=== PATIENT | female | born 1950 | race Caucasian/White ===

== ENCOUNTER 2017-04-10 16:16 | Emergency (ER) | payer BC, OTHER ==
[~2017-04-10] VITALS: Ht 154.9 cm; Wt 48.0 kg
[2017-04-10 16:18] VITALS: BP 85/48; PULSE 83; RESP 16; TEMP 101.2; O2SAT 95
[2017-04-10 16:42] VITALS: BP 99/49; PULSE 86; RESP 18; O2SAT 96
[2017-04-10] MEDS ORDERED: HUMIBIDDM PO (16:42)
[2017-04-10] MEDS ORDERED: CEPH-460 PO (16:42)
[2017-04-10] MEDS ORDERED: ZOLO50TA PO (16:42)
[2017-04-10] MEDS ORDERED: SYNT88TA PO (16:42)
[2017-04-10] MEDS ORDERED: ROSU20 PO (16:47)
[2017-04-10 17:02] LABS: HEMOGLOBIN 11.2 GM/DL (11.6-15.3); MEAN CELL VOLUME 97.8 FL (80.0-100.0); MEAN CORPUSCULAR HEMOGLOBIN 32.2 PG (27.0-34.0); MEAN CORPUSCULAR HGB CONC 32.9 % (32.0-36.0); MEAN PLATELET VOLUME 8.7 FL (7.0-11.0); PLATELET COUNT 114 TH/MM3 (150-450); RED BLOOD COUNT 3.48 MIL/MM3 (4.00-5.30); RED CELL DISTRIBUTION WIDTH 12.2 % (11.6-17.2); WHITE BLOOD COUNT 3.7 TH/MM3 (4.0-11.0)
[2017-04-10 17:11] LABS: CHLORIDE 89 MEQ/L (98-107); SODIUM (NA) 126 MEQ/L (136-145)
[2017-04-10 17:13] VITALS: O2SAT 97
[2017-04-10 17:14] LABS: CALCIUM 8.4 MG/DL (8.5-10.1)
[2017-04-10 17:15] LABS: ALBUMIN 3.8 GM/DL (3.4-5.0); BICARBONATE 28.2 MEQ/L (21.0-32.0); BLOOD UREA NITROGEN 15 MG/DL (7-18); GLUCOSE,RANDOM 115 MG/DL (74-106)
[2017-04-10] MEDS ORDERED: ACETAMINOPHEN 650 MG/20.3 ML UDC PO ONE (17:15)
[2017-04-10] MEDS ORDERED: ONDANSETRON HCL 4 MG/2 ML VIAL IV PUSH ONE (17:15)
[2017-04-10 17:18] LABS: ALT (GPT) 24 U/L (10-53); AST (GOT) 27 U/L (15-37); CREATININE 0.62 MG/DL (0.50-1.00); GLOMERULAR FILTRATION RATE 97 ML/MIN (>89)
[2017-04-10 17:19] LABS: TOTAL BILIRUBIN ADULT 0.5 MG/DL (0.2-1.0); TOTAL PROTEIN 6.7 GM/DL (6.4-8.2)
[2017-04-10 17:21] LABS: ALKALINE PHOSPHATASE 40 U/L (45-117)
[2017-04-10 17:30] LABS: BANDS 25 % (0-6); LYMPHOCYTES 11 % (9-44); MONOCYTES 19 % (0-8); NEUTROPHIL # MANUAL DIFF 2.6 TH/MM3 (1.8-7.7); POLYS (SEG NEUTROPHILS) 45 % (16-70)
[2017-04-10 17:31] LABS: ROULEAUX PRESENT (NORMAL)
--- NOTE | 2017-04-10 17:48 | PD ---
HPI Chief Complaint: Cold / Flu Symptoms Time Seen by Provider: 17:13 Travel History International Travel<30 days: No Contact w/Intl Traveler<30days: No Traveled to known affect area: No History of Present Illness HPI Patient presents with complaints of mild cough yesterday. Taking a nap today when she awoke she was febrile with general malaise mild nausea no vomiting. No flu shot. Unknown sick contacts. No new rashes. No tobacco exposure. No history of lung disease. PFSH Past Medical History Depression: Yes High Cholesterol: Yes Diminished Hearing: No Immunizations Current: Yes Thyroid Disease: Yes Tetanus Vaccination: > 5 Years Influenza Vaccination: No ?: Not Past Surgical History Hysterectomy: Yes Social History Alcohol Use: Yes (occ) Tobacco Use: No Substance Use: No Allergies-Medications (Allergen,Severity, Reaction): Coded Allergies: amoxicillin (Verified Allergy, Severe, HIVES, THROAT CLOSES, 04/10/17) Penicillins (Verified Allergy, Intermediate, HIVES, THROAT CLOSING, 04/10/17 ) licorice (Verified Allergy, Intermediate, HIVES, 04/10/17) pineapple (Verified Allergy, Intermediate, HIVES, 04/10/17) shellfish derived (Verified Allergy, Intermediate, Anaphylaxis, 04/10/17) strawberry (Verified Allergy, Intermediate, HIVES, 04/10/17) Reported Meds & Prescriptions Reported Meds & Active Scripts Active Reported Crestor (Rosuvastatin Calcium) 20 Mg Tab 20 Mg PO DAILY Synthroid (Levothyroxine Sodium) 88 Mcg Tab 88 Mcg PO DAILY Mucinex DM (Dextromethorphan-Guaifenesin) 30-600 Mg Tab 1 Tab PO BID PRN Zoloft (Sertraline HCl) 50 Mg Tab 50 Mg PO DAILY Keflex (Cephalexin) 500 Mg Cap 500 Mg PO Q8H Review of Systems General / Constitutional: Positive: Fever Eyes: No: Visual changes HENT: No: Headaches Cardiovascular: No: Chest Pain or Discomfort Respiratory: Positive: Cough, No: Shortness of Breath Gastrointestinal: Positive: Nausea, No: Abdominal Pain Genitourinary: No: Dysuria Musculoskeletal: Positive: Myalgias, No: Pain Skin: No Rash Neurologic: No: Weakness Psychiatric: No: Depression Endocrine: No: Polydipsia Hematologic/Lymphatic: No: Easy Bruising Physical Exam Narrative GENERAL: Well-nourished, well-developed patient. SKIN: Focused skin assessment warm/dry. HEAD: Normocephalic. EYES: No scleral icterus. No injection or drainage. NECK: Supple, trachea midline. No JVD or lymphadenopathy. CARDIOVASCULAR: Regular rate and rhythm without murmurs, gallops, or rubs. RESPIRATORY: Breath sounds equal bilaterally. No accessory muscle use. GASTROINTESTINAL: Abdomen soft, non-tender, nondistended. MUSCULOSKELETAL: No cyanosis, or edema. BACK: Nontender without obvious deformity. No CVA tenderness. Data Data Last Documented VS Vital Signs Date Time Temp Pulse Resp B/P (MAP) Pulse Ox O2 Delivery O2 Flow Rate FiO2 04/10/17 17:51 99.5 79 18 91/40 (57) 96 Room Air Orders Orders Sepsis Workup Initiated (04/10/17 ) Complete Blood Count With Diff (04/10/17 16:47) Comprehensive Metabolic Panel (04/10/17 16:47) Lactic Acid Sepsis Protocol (04/10/17 16:47) Chest, Single Ap (04/10/17 16:47) Blood Culture (04/10/17 16:47) Iv Access Insert/Monitor (04/10/17 16:47) Oxygen Administration (04/10/17 16:47) Oximetry (04/10/17 16:47) Blood Glucose (04/10/17 16:47) Influenzae A/B Antigen (04/10/17 16:52) Ondansetron Inj (Zofran Inj) (04/10/17 17:15) Acetaminophen 650 Mg/20 Ml Liq (Tylenol (04/10/17 17:15) Sodium Chlorid 0.9% 500 Ml Inj (Ns 500 M (04/10/17 18:00) Labs Laboratory Tests Test 04/10/17 16:40 04/10/17 16:45 White Blood Count 3.7 TH/MM3 Red Blood Count 3.48 MIL/MM3 Hemoglobin 11.2 GM/DL Hematocrit 34.0 % Mean Corpuscular Volume 97.8 FL Mean Corpuscular Hemoglobin 32.2 PG Mean Corpuscular Hemoglobin Concent 32.9 % Red Cell Distribution Width 12.2 % Platelet Count 114 TH/MM3 Mean Platelet Volume 8.7 FL CBC Comment AUTO DIFF Differential Total Cells Counted 100 Neutrophils % (Manual) 45 % Band Neutrophils % 25 % Lymphocytes % 11 % Monocytes % 19 % Neutrophils # (Manual) 2.6 TH/MM3 Differential Comment FINAL DIFF MANUAL Platelet Estimate LOW Platelet Morphology Comment NORMAL Rouleau PRESENT Red Cell Morphology Comment NORMAL Blood Urea Nitrogen 15 MG/DL Creatinine 0.62 MG/DL Random Glucose 115 MG/DL Total Protein 6.7 GM/DL Albumin 3.8 GM/DL Calcium Level 8.4 MG/DL Alkaline Phosphatase 40 U/L Aspartate Amino Transf (AST/SGOT) 27 U/L Alanine Aminotransferase (ALT/SGPT) 24 U/L Total Bilirubin 0.5 MG/DL Sodium Level 126 MEQ/L Potassium Level 3.8 MEQ/L Chloride Level 89 MEQ/L Carbon Dioxide Level 28.2 MEQ/L Anion Gap 9 MEQ/L Estimat Glomerular Filtration Rate 97 ML/MIN Lactic Acid Level 0.7 mmol/L [facility] Medical Decision Making Medical Screen Exam Complete: Yes Emergency Medical Condition: Yes Differential Diagnosis Influenza, bronchitis, viral upper respiratory infection, pneumonia Narrative Course Assessment and plan discussed with patient and daughter at bedside. BMP reveals mild hyponatremia, patient was given 500 cc normal saline. CBC revealed a pancytopenia which the patient acknowledged was not new. No comparison available. Influenza was negative. Last 72 hours Impressions Chest X-Ray 04/10/17 1647 Signed Impressions: Service Date/Time: Monday, April 10, 2017 17:01 - CONCLUSION: 1. Interstitial disease which may be acute or chronic in nature. Please see above. Joe Luu MD I think with the chest x-ray findings prophylactic antibiotics is warranted. Diagnosis Primary Impression: Cough Additional Impressions: Fever Qualified Codes: R50.9 - Fever, unspecified Mild nausea Pancytopenia Patient Instructions: General Instructions Additional Instructions: Rest fluids and Motrin, encouraged a bland high-fiber brat diet. Encouraged to follow-up with PCP for further workup of pancytopenia. Encourage frequent handwashing. Consider vitamin C and zinc to boost immune system. Med/Other Pt SpecificInfo: Prescription(s) given Scripts Ondansetron (Zofran) 4 Mg Tab 4 MG PO Q6HR Y for NAUSEA OR VOMITING, #15 TAB 0 Refills Prov: Chapincito Hayes MD 04/10/17 Guaifenesin-Codeine Liq (Cheratussin AC Liq) 100-10 Mg/5 Ml Syrp 5-10 ML PO Q4H Y for COUGH AND COLD SYMPTOMS, #120 ML 0 Refills Do not exceed 6 doses/24 hrs. Prov: Chapincito Hayes MD 04/10/17 Azithromycin (Zithromax Z-Cristobal) 250 Mg Dspk 250 MG PO DIRECTED for Infection, #1 DSPK 0 Refills 500 MG (2 tabs) day 1, then 1 tab days 2-5. Prov: Chapincito Hayes MD 04/10/17 Chapincito Hayes MD Apr 10, 2017 17:48
--- NOTE | 2017-04-10 17:49 | RADRPT ---
EXAM DATE/TIME: 04/10/2017 17:01 [facility] COMPARISON: No previous studies available for comparison. INDICATIONS : Fever, cough, chest pain with cough MEDICAL HISTORY : None. SURGICAL HISTORY : None. ENCOUNTER: Initial ACUITY: 4 - 6 days PAIN SCORE: 5/10 LOCATION: Bilateral chest FINDINGS: The cardiac silhouette is normal in transverse diameter. There is interstitial disease bilaterally wh ich may be related to chronic fibrosis or atypical bacterial, viral or fungal pneumonia. There are no prior films for comparison. No pleural effusions are identified. No lobar consolidation is seen. CONCLUSION: 1. Interstitial disease which may be acute or chronic in nature. Please see above. Joe Luu MD on April 10, 2017 at 17:46 Board Certified Radiologist. This report was verified electronically.
[2017-04-10 17:51] VITALS: BP 91/40; PULSE 79; RESP 18; TEMP 99.5; O2SAT 96
[2017-04-10] MEDS ORDERED: SODIUM CHLORID 0.9% 500 ML INJ 500 ML IV ONE (18:00)
[2017-04-10] MEDS ORDERED: ZITHTAB PO (18:06)
[2017-04-10] MEDS ORDERED: CHERSYP2 PO (18:06)
[2017-04-10] MEDS ORDERED: ZOFR4TAB PO (18:06)
== END 2017-04-10 18:00 | disposition home or self-care (01) ==
LOC: PHED 16:16
DX: R05 Cough (principal); R50.9 Fever, unspecified; R11.0 Nausea; D61.818 Other pancytopenia; E87.1 Hypo-osmolality and hyponatremia; F32.9 Major depressive disorder, single episode, unspecified; E07.9 Disorder of thyroid, unspecified
CPT/HCPCS: 71045; 80053; 83605; 85007; 85027; 87040; 87804; 96361; 96374; 99284; J2405; J7040

== ENCOUNTER 2017-04-13 15:58 | Inpatient (IN) | payer MEDICARE, BC ==
[2017-04-13] VITALS (7 sets, daily range): BP systolic 87–124; BP diastolic 47–58; PULSE 88–109; RESP 20–35; TEMP 97.7–100.6; O2SAT 63–100
[~2017-04-13] VITALS: Ht 154.9 cm; Wt 46.5 kg
[~2017-04-13 15:58] MED LIST: CEPH-460 PO; CHERSYP2 PO; HUMIBIDDM PO; ROSU20 PO; SYNT88TA PO; ZITHTAB PO; ZOFR4TAB PO; ZOLO50TA PO
[2017-04-13] MEDS ORDERED: LEVOFLOXACIN 500 MG PREMIX INJ 100 ML IV ONE (16:15)
--- NOTE | 2017-04-13 16:38 | PD ---
HPI Chief Complaint: COUGH/SOB Time Seen by Provider: 16:15 Travel History International Travel<30 days: No Contact w/Intl Traveler<30days: No Traveled to known affect area: No History of Present Illness HPI SEEN AT [facility] ON April, FOR COUGH/FEVER/AND SOB. UNKNOWN WHAT PULSE OX WAS PRESENT ON THAT DAY. PATIENT DX WITH "LUNG INFECTION" AND PLACED ON ZPAK. TODAY PATIENT RETURNS BECAUSE OF PERSISTENT FEVER, COUGH AND GEN WEAKNESS PCP [facility]EN PMHX: DEPRESSION, HYPERCHOL, HYPOTHYROID, HYSTERECTOMY PFSH Past Medical History Depression: Yes High Cholesterol: Yes Diminished Hearing: No Immunizations Current: Yes Thyroid Disease: Yes Past Surgical History Hysterectomy: Yes Social History Alcohol Use: Yes (occ) Tobacco Use: No Substance Use: No Allergies-Medications (Allergen,Severity, Reaction): Coded Allergies: amoxicillin (Verified Allergy, Severe, HIVES, THROAT CLOSES, 04/10/17) Penicillins (Verified Allergy, Intermediate, HIVES, THROAT CLOSING, 04/10/17 ) licorice (Verified Allergy, Intermediate, HIVES, 04/10/17) pineapple (Verified Allergy, Intermediate, HIVES, 04/10/17) shellfish derived (Verified Allergy, Intermediate, Anaphylaxis, 04/10/17) strawberry (Verified Allergy, Intermediate, HIVES, 04/10/17) Reported Meds & Prescriptions Reported Meds & Active Scripts Active Zofran (Ondansetron HCl) 4 Mg Tab 4 Mg PO Q6HR PRN Cheratussin AC Liq (Guaifenesin-Codeine Liq) 100-10 Mg/5 Ml Syrp 5-10 Ml PO Q4H PRN Do not exceed 6 doses/24 hrs. Zithromax Z-Cristobal (Azithromycin) 250 Mg Dspk 250 Mg PO DIRECTED 500 MG (2 tabs) day 1, then 1 tab days 2-5. Reported Crestor (Rosuvastatin Calcium) 20 Mg Tab 20 Mg PO DAILY Synthroid (Levothyroxine Sodium) 88 Mcg Tab 88 Mcg PO DAILY Mucinex DM (Dextromethorphan-Guaifenesin) 30-600 Mg Tab 1 Tab PO BID PRN Zoloft (Sertraline HCl) 50 Mg Tab 50 Mg PO DAILY Keflex (Cephalexin) 500 Mg Cap 500 Mg PO Q8H Review of Systems Except as stated in HPI: all other systems reviewed are Neg General / Constitutional: Positive: Fever, Chills Eyes: No: Visual changes HENT: No: Headaches Cardiovascular: No: Chest Pain or Discomfort Respiratory: Positive: Cough, Shortness of Breath Gastrointestinal: No: Abdominal Pain Genitourinary: No: Dysuria Musculoskeletal: No: Pain Skin: No Rash Neurologic: No: Weakness Psychiatric: No: Depression Endocrine: No: Polydipsia Hematologic/Lymphatic: No: Easy Bruising Physical Exam Narrative GENERAL: SKIN: Warm and dry. HEAD: Atraumatic. Normocephalic. EYES: Pupils equal and round. No scleral icterus. No injection or drainage. ENT: No nasal bleeding or discharge. Mucous membranes pink and moist. NECK: Trachea midline. No JVD. CARDIOVASCULAR: Regular rate and rhythm. RESPIRATORY: No accessory muscle use. MILD BASILAR CRACKLES ON RLL...SPEAKING FULL SENTENCES GASTROINTESTINAL: Abdomen soft, non-tender, nondistended. MUSCULOSKELETAL: Extremities without clubbing, cyanosis, or edema. No obvious deformities. NEUROLOGICAL: Awake and alert. No obvious cranial nerve deficits. Motor grossly within normal limits. Five out of 5 muscle strength in the arms and legs. Normal speech. PSYCHIATRIC: Appropriate mood and affect; insight and judgment normal. Data Data Last Documented VS Vital Signs Date Time Temp Pulse Resp B/P (MAP) Pulse Ox O2 Delivery O2 Flow Rate FiO2 04/13/17 15:58 100.6 109 20 124/53 (76) 70 Room Air Orders Orders Electrocardiogram (04/13/17 16:15) Complete Blood Count With Diff (04/13/17 16:15) Comprehensive Metabolic Panel (04/13/17 16:15) Troponin I (04/13/17 16:15) B-Type Natriuretic Peptide (04/13/17 16:15) Prothrombin Time / Inr (Pt) (04/13/17 16:15) Act Partial Throm Time (Ptt) (04/13/17 16:15) Arterial Blood Gas (Abg) (04/13/17 16:15) Blood Culture (04/13/17 16:15) Lipase (04/13/17 16:15) Urinalysis - C+S If Indicated (04/13/17 16:15) Thyroid Stimulating Hormone (04/13/17 16:15) Sputum Culture And Gram Stain (04/13/17 16:15) Influenzae A/B Antigen (04/13/17 16:15) Chest, Single Ap (04/13/17 16:15) Iv Access Insert/Monitor (04/13/17 16:15) Ecg Monitoring (04/13/17 16:15) Oximetry (04/13/17 16:15) Levofloxacin 500 Mg Premix Inj (Levaquin (04/13/17 16:15) MDM Medical Decision Making Medical Screen Exam Complete: Yes Emergency Medical Condition: Yes Medical Record Reviewed: Yes Differential Diagnosis PNA V PE V CHF V KIDNEY FAILURE Diagnosis Primary Impression: Severe hypoxemia Admitting Information Admitting Physician Requests: Observation Naga Rudd MD Apr 13, 2017 16:38
[2017-04-13 17:19] LABS: AUTOMATED NEUTROPHIL # 4.6 TH/MM3 (1.8-7.7); BASOPHIL % 0.2 % (0.0-2.0); EOSINOPHIL # 0.1 TH/MM3 (0-0.4); EOSINOPHIL % 1.1 % (0.0-4.0); HEMOGLOBIN 10.8 GM/DL (11.6-15.3); LYMPH % 3.4 % (9.0-44.0); LYMPHOCYTE # 0.2 TH/MM3 (1.0-4.8); MEAN CELL VOLUME 96.5 FL (80.0-100.0); MEAN CORPUSCULAR HEMOGLOBIN 33.6 PG (27.0-34.0); MEAN CORPUSCULAR HGB CONC 34.8 % (32.0-36.0); MEAN PLATELET VOLUME 8.4 FL (7.0-11.0); MONOCYTE # 0.2 TH/MM3 (0-0.9); NEUT % 92.3 % (16.0-70.0); PLATELET COUNT 135 TH/MM3 (150-450); RED BLOOD COUNT 3.21 MIL/MM3 (4.00-5.30); RED CELL DISTRIBUTION WIDTH 13.2 % (11.6-17.2)
--- NOTE | 2017-04-13 17:29 | RADRPT ---
EXAM DATE/TIME: 04/13/2017 16:40 [facility] COMPARISON: CHEST SINGLE AP, April 10, 2017, 17:01. INDICATIONS : Short of breath. MEDICAL HISTORY : None. SURGICAL HISTORY : None. ENCOUNTER: Initial ACUITY: 1 week PAIN SCORE: 0/10 LOCATION: Bilateral chest FINDINGS: Bibasilar consolidative changes worse on the right than left there bronchograms right base. Cardiome micheal with moderate congestive failure. No pneumothorax. The portion of the bony skeleton visualized is unremarkable. CONCLUSION: Moderate congestive failure Consolidative changes right lower lobe that could be inflammatory. Substantial change from one 718.. Darvin Rutherford MD FACR on April 13, 2017 at 17:26 Board Certified Radiologist. This report was verified electronically.
[2017-04-13 17:40] LABS: ALBUMIN 2.8 GM/DL (3.4-5.0); ALKALINE PHOSPHATASE 62 U/L (45-117); ALT (GPT) 29 U/L (10-53); AST (GOT) 32 U/L (15-37); BICARBONATE 25.2 MEQ/L (21.0-32.0); BLOOD UREA NITROGEN 17 MG/DL (7-18); CALCIUM 8.9 MG/DL (8.5-10.1); CHLORIDE 89 MEQ/L (98-107); GLOMERULAR FILTRATION RATE 72 ML/MIN (>89); GLUCOSE,RANDOM 124 MG/DL (74-106); LIPASE 101 U/L (73-393); TOTAL BILIRUBIN ADULT 0.6 MG/DL (0.2-1.0); TOTAL PROTEIN 6.7 GM/DL (6.4-8.2); TROPONIN I 0.07 NG/ML (0.02-0.05)
[2017-04-13 17:42] LABS: SODIUM (NA) 124 MEQ/L (136-145)
--- NOTE | 2017-04-13 18:12 | RADRPT ---
EXAM DATE/TIME: 04/13/2017 17:36 [facility] COMPARISON: No previous studies available for comparison. INDICATIONS : Dyspnea. DOSE: 8.1 mCi Tc99m MAA IV 0.7 mCi Tc99m DTPA aerosol MEDICAL HISTORY : None SURGICAL HISTORY : Hysterectomy. ENCOUNTER: Initial ACUITY: 1 day PAIN SCALE: 0/10 LOCATION: Chest. TECHNIQUE: Following five minutes of tidal breathing of DTPA aerosol, planar images of the lungs were performed in eight projections. The patient was then injected with MAA, and eight-view perfusion scan was perf ormed. FINDINGS: There is a heterogeneous pattern of aerosol delivery to the periphery of both lungs. There some bella ing in the right lung base No focal ventilatory defects are seen. The perfusion lung scan demonstrates a homogenous pattern of uptake in both lungs. No segmental or s ubsegmental defects are seen. CONCLUSION: Some air trapping in the right lung base. No significant perfusion defects are noted. No significant evidence of pulmonary embolism. Akash Long MD on April 13, 2017 at 18:09 Board Certified Radiologist. This report was verified electronically.
[2017-04-13 18:37] LABS: BANDS 24 % (0-6); BASOPHILS 1 % (0-2); LYMPHOCYTES 5 % (9-44); METAMYELOCYTES 1 % (0-1); MONOCYTES 7 % (0-8); MYELOCYTES 1 % (0-0); NEUTROPHIL # MANUAL DIFF 4.4 TH/MM3 (1.8-7.7); POLYS (SEG NEUTROPHILS) 61 % (16-70)
[2017-04-13 18:38] LABS: TEARDROP RBCS 1+ (NORMAL)
[2017-04-13] MEDS ORDERED: NALOXONE HCL 0.4 MG/ML AMP IV PUSH PRN (18:45)
[2017-04-13] MEDS ORDERED: RESP: IPRATROPIUM 0.5 MG/2.5 ML NEB NEB PRN (19:00)
[2017-04-13 20:53] LABS: AMORPHOUS SEDIMENT, URINE RARE
[2017-04-13] MEDS ORDERED: SODIUM CHLOR 0.9% 1000 ML INJ 1,000 ML IV ONE (21:00)
[2017-04-13] MEDS: SODIUM CHLORIDE 0.9% FLUSH 10 ML FLUSH IV FLUSH SCH (21:00)
[2017-04-13] MEDS ORDERED: CHLORHEXIDINE GLUCONATE 2 % 1 PACK (2 CLOTHS)(extra cloths) TOPICAL PRN (22:00)
--- NOTE | 2017-04-13 22:11 | HHI.HP ---
HPI Service [facility] Primary Care Physician Katerina Horton MD Admission Diagnosis SEVERE HYPOXEMIA, BILATERAL LUNG INFILTRATES Diagnoses: Travel History International Travel<30 Days: No Contact w/Intl Traveler <30 Da: No Traveled to Known Affected Are: No History of Present Illness History from patient, ER communication, and review of medical records tuesday afternoon had fever 103 came to [facility] ER was told infection, prescribed z pack not improved was also coughing , was given codeine and cough med took tylenol nex few days continued fever 102- 103 at home ; chills too was wheezing at home then finally came to ER again here O2 sat was 64% on RA by EMS also severely hypoxic in ER denies hx of chf stopped smoking at age 41yrs ago- smoked from 17yo to 26 yo quit smoking about 30yrs ago, but he did not smoke heavily indoor then has been sleeping on recliner no peripheral edema no weight gain nauseous, but did not vomit no diarrhea no urinary symptoms no blood in stool or urine no other symptoms no recent travels out of country no prolonged travels Review of Systems Except as stated in HPI: all other systems reviewed are Neg Past Family Social History Past Medical History baseline low BP 95/62 hypothyroidism depression Past Surgical History hysterectomy Allergies: Coded Allergies: amoxicillin (Verified Allergy, Severe, HIVES, THROAT CLOSES, 04/13/17) Penicillins (Verified Allergy, Intermediate, HIVES, THROAT CLOSING, ) licorice (Verified Allergy, Intermediate, HIVES, 04/13/17) pineapple (Verified Allergy, Intermediate, HIVES, 04/13/17) shellfish derived (Verified Allergy, Intermediate, Anaphylaxis, 04/13/17) strawberry (Verified Allergy, Intermediate, HIVES, 04/13/17) Family History dad- cva mom- she lives with patient now 94yo, very healthy apart from ischemic colitis brother - dm Social History quit smoking 40yrs ago no etoh abuse, no drugs Physical Exam Vital Signs Vital Signs Date Time Temp Pulse Resp B/P (MAP) Pulse Ox O2 Delivery O2 Flow Rate FiO2 04/13/17 21:46 97.7 108 20 101/58 (72) 96 04/13/17 19:43 98.7 90 25 87/50 (62) 99 Non-Rebreather 100 04/13/17 18:45 89 25 87/47 (60) 100 Non-Rebreather 100 04/13/17 17:10 88 25 87/47 (60) 96 Non-Rebreather 100 04/13/17 16:25 99 Non-Rebreather 100 04/13/17 16:11 101 35 104/51 (68) 63 04/13/17 15:58 100.6 109 20 124/53 (76) 70 Room Air Physical Exam GENERAL: This is a thin lady,, in no apparent distress. SKIN: No rashes, ecchymoses or lesions. Cool and dry. HEAD: Atraumatic. Normocephalic. No temporal or scalp tenderness. EYES: No scleral icterus. No injection or drainage. ENT: Nose without bleeding, purulent drainage or septal hematoma. Airway patent. NECK: Trachea midline. No JVD CARDIOVASCULAR: Regular rate and rhythm without murmurs, gallops, or rubs. RESPIRATORY: Bilaterally decreased air entry. Audible wheezing even during conversation. GASTROINTESTINAL: Abdomen soft, non-tender, nondistended. No guarding. MUSCULOSKELETAL: Extremities without clubbing, cyanosis, or edema. No calf tenderness. NEUROLOGICAL: Awake and alert.Motor and sensory grossly within normal limits. Normal speech. Laboratory Laboratory Tests Test 04/13/17 16:32 04/13/17 16:40 04/13/17 16:45 04/13/17 16:48 White Blood Count 5.0 Red Blood Count 3.21 Hemoglobin 10.8 Hematocrit 31.0 Mean Corpuscular Volume 96.5 Mean Corpuscular Hemoglobin 33.6 Mean Corpuscular Hemoglobin Concent 34.8 Red Cell Distribution Width 13.2 Platelet Count 135 Mean Platelet Volume 8.4 Neutrophils (%) (Auto) 92.3 Lymphocytes (%) (Auto) 3.4 Monocytes (%) (Auto) 3.0 Eosinophils (%) (Auto) 1.1 Basophils (%) (Auto) 0.2 Neutrophils # (Auto) 4.6 Lymphocytes # (Auto) 0.2 Monocytes # (Auto) 0.2 Eosinophils # (Auto) 0.1 Basophils # (Auto) 0.0 CBC Comment AUTO DIFF Differential Total Cells Counted 100 Neutrophils % (Manual) 61 Band Neutrophils % 24 Lymphocytes % 5 Monocytes % 7 Basophils % 1 Neutrophils # (Manual) 4.4 Metamyelocytes 1 Myelocytes 1 Differential Comment FINAL DIFF MANUAL Atypical Lymphocytes Platelet Estimate LOW Platelet Morphology Comment NORMAL Tear Drop Cells 1+ Blood Urea Nitrogen 17 Creatinine 0.80 Random Glucose 124 Total Protein 6.7 Albumin 2.8 Calcium Level 8.9 Alkaline Phosphatase 62 Aspartate Amino Transf (AST/SGOT) 32 Alanine Aminotransferase (ALT/SGPT) 29 Total Bilirubin 0.6 Sodium Level 124 Potassium Level 3.9 Chloride Level 89 Carbon Dioxide Level 25.2 Anion Gap 10 Estimat Glomerular Filtration Rate 72 Troponin I 0.07 B-Type Natriuretic Peptide 110 Lipase 101 Thyroid Stimulating Hormone 3rd Gen 1.170 Lactic Acid Level 1.8 Blood Gas Puncture Site RT RADIAL Blood Gas Patient Temperature 98.6 Blood Gas HCO3 25 Blood Gas Base Excess 1.1 Blood Gas Oxygen Saturation 93 Arterial Blood pH 7.45 Arterial Blood Partial Pressure CO2 36 Arterial Blood Partial Pressure O2 70 Arterial Blood Oxygen Content 14.8 Arterial Blood Carboxyhemoglobin 1.5 Arterial Blood Methemoglobin 0.3 Blood Gas Hemoglobin 11.2 Oxygen Delivery Device Non-Rebreathing Mask Blood Gas Liter Flow 15 Urine Color Urine Turbidity Urine pH Urine Specific [place] Urine Protein Urine Glucose (UA) Urine Ketones Urine Occult Blood Urine Nitrite Urine Bilirubin Urine Urobilinogen Urine Leukocyte Esterase Urine RBC Urine WBC Urine Squamous Epithelial Cells Urine Renal Epithelial Cells Urine Amorphous Sediment RARE Urine Bacteria Microscopic Urinalysis Comment Date/Time Source Procedure Growth Status 04/13/17 16:30 Blood Peripheral Aerobic Blood Culture Pending Received 04/13/17 16:30 Blood Peripheral Anaerobic Blood Culture Pending Received 04/13/17 19:26 Nasal Washing Influenza Types A,B Antigen (HARINDER) Pending Received Result Diagram: 04/13/17 1632 04/13/17 1632 Imaging Last 48 hours Impressions Lung Scan-VQ Nuclear Medicine 04/13/17 1630 Signed Impressions: Service Date/Time: Thursday, April 13, 2017 17:36 - CONCLUSION: Some air trapping in the right lung base. No significant perfusion defects are noted. No significant evidence of pulmonary embolism. Akash Long MD Chest X-Ray 04/13/17 1615 Signed Impressions: Service Date/Time: Thursday, April 13, 2017 16:40 - CONCLUSION: Moderate congestive failure Consolidative changes right lower lobe that could be inflammatory. Substantial change from one 718.. Darvin Rutherford MD FACR Caprini VTE Risk Assessment Caprini VTE Risk Assessment: Mod/High Risk (score >= 2) Caprini Risk Assessment Model Point Value = 1 Point Value = 2 Point Value = 3 Point Value = 5 Age 41-60 Minor surgery BMI > 25 kg/m2 Swollen legs Varicose veins or History of unexplained or recurrent spontaneous Oral contraceptives or hormone replacement Sepsis (< 1 month) Serious lung disease, including pneumonia (< 1 month) Abnormal pulmonary function Acute myocardial infarction Congestive heart failure (< 1 month) History of inflammatory bowel disease Medical patient at bed rest Age 61-74 Arthroscopic surgery Major open surgery (> 45 min) Laparoscopic surgery (> 45 min) Malignancy Confined to bed (> 72 hours) Immobilizing plaster cast Central venous access Age >= 75 History of VTE Family history of VTE Factor V Leiden Prothrombin [id number] Lupus anticoagulant Anticardiolipin antibodies Elevated serum homocysteine Heparin-induced thrombocytopenia Other congenital or acquired thrombophilia Stroke (< 1 month) Elective arthroplasty Hip, pelvis, or leg fracture Acute spinal cord injury (< 1 month) Prophylaxis Regimen Total Risk Factor Score Risk Level Prophylaxis Regimen 0-1 Low Early ambulation 2 Moderate Order ONE of the following: *Sequential Compression Device (SCD) *Heparin 5000 units SQ BID 3-4 Higher Order ONE of the following medications: *Heparin 5000 units SQ TID *Enoxaparin/Lovenox 40 mg SQ daily (WT < 150 kg, CrCl > 30 mL/min) *Enoxaparin/Lovenox 30 mg SQ daily (WT < 150 kg, CrCl > 10-29 mL/min) *Enoxaparin/Lovenox 30 mg SQ BID (WT < 150 kg, CrCl > 30 mL/min) AND/OR *Sequential Compression Device (SCD) 5 or more Highest Order ONE of the following medications: *Heparin 5000 units SQ TID (Preferred with Epidurals) *Enoxaparin/Lovenox 40 mg SQ daily (WT < 150 kg, CrCl > 30 mL/min) *Enoxaparin/Lovenox 30 mg SQ daily (WT < 150 kg, CrCl > 10-29 mL/min) *Enoxaparin/Lovenox 30 mg SQ BID (WT < 150 kg, CrCl > 30 mL/min) AND *Sequential Compression Device (SCD) Assessment and Plan Assessment and Plan Impression: hypoxia dyspnea likely viral infection with superimposed bacterial likely underlying copd per cxr possible pulm edema on imaging. Radiologist reading is that of pulmonary edema. Personally reviewed chest x-ray. I do believe it's more consistent with COPD hyperinflated lung with infiltrates. baseline low BP hyponatremia. Patient reports her baseline sodium is 138. Possible she is not eating or drinking well from recent acute illness. However would need to rule out Legionella. baseline low BP 95/62 hypothyroidism depression Plan: o2 supplementation. Currently patient is requiring nonrebreather to maintain oxygenation. She however looks clinically well. monitor in icu levofloxacin 750mg iv q24hrs nebs prn VQ scan was done. Personally reviewed. No evidence of pulmonary embolism. serial enzymes and ekg echo in am rule on legionella Follow sodium levels. No IV fluids so as to avoid fluid overload. Patient was also receiving IV fluids in the form of antibiotics. Suspects sodium will correct without much intervention. If echo reveals CHF, would likely need to have cardiac workup for new onset CHF. At this point, patient looks clinically well apart from the fact that she needed high oxygen supplementation. I have not diurese the patient due to baseline low BP of 96 over 50s. If patient is more dyspneic, would consider using BiPAP as well. DVT prophylaxis with heparin. Critical care time 30 minutes Discussed Condition With Patient, ER physician, nursing staff Physician Certification 2 Midnight Certification Type: Admission for Inpatient Services Order for Inpatient Services The services are ordered in accordance with Medicare regulations or non- Medicare payer requirements, as applicable. In the case of services not specified as inpatient-only, they are appropriately provided as inpatient services in accordance with the 2-midnight benchmark. Estimated LOS (days): 4 days is the estimated time the patient will need to remain in the hospital, assuming treatment plan goals are met and no additional complications. Post-Hospital Plan: Home Jolie Mcdonald MD Apr 13, 2017 22:11
[2017-04-14] VITALS (18 sets, daily range): BP systolic 89–104; BP diastolic 50–73; PULSE 79–101; RESP 33–40; TEMP 98.2–99; O2SAT 88–100
[2017-04-14 00:04] LABS: INTERNATIONAL NORMALIZED RATIO 1.3 RATIO; PROTHROMBIN TIME - PATIENT 12.8 SEC (9.8-11.6)
[2017-04-14 00:12] LABS: BICARBONATE 27.6 MEQ/L (21.0-32.0); CREATININE 0.47 MG/DL (0.50-1.00); TROPONIN I 0.02 NG/ML (0.02-0.05)
[2017-04-14] MEDS: CHLORHEXIDINE GLUCONATE 2 % 1 PACK (2 CLOTHS)(taper/protocol) TOPICAL SCH (04:00)
[2017-04-14] MEDS: LEVOTHYROXINE SODIUM 88 MCG TAB PO SCH (05:45)
[2017-04-14 07:52] LABS: BASOPHIL % 0.1 % (0.0-2.0); EOSINOPHIL # 0.1 TH/MM3 (0-0.4); EOSINOPHIL % 1.2 % (0.0-4.0); HEMATOCRIT 25.3 % (35.0-46.0); HEMOGLOBIN 9.1 GM/DL (11.6-15.3); LYMPH % 4.2 % (9.0-44.0); LYMPHOCYTE # 0.3 TH/MM3 (1.0-4.8); MEAN CELL VOLUME 96.5 FL (80.0-100.0); MEAN CORPUSCULAR HEMOGLOBIN 34.7 PG (27.0-34.0); MEAN CORPUSCULAR HGB CONC 35.9 % (32.0-36.0); MEAN PLATELET VOLUME 8.2 FL (7.0-11.0); MONOCYTE # 0.7 TH/MM3 (0-0.9); NEUT % 82.5 % (16.0-70.0); PLATELET COUNT 157 TH/MM3 (150-450); RED BLOOD COUNT 2.63 MIL/MM3 (4.00-5.30); RED CELL DISTRIBUTION WIDTH 13.4 % (11.6-17.2); WHITE BLOOD COUNT 6.1 TH/MM3 (4.0-11.0)
[2017-04-14 08:03] LABS: BLOOD UREA NITROGEN 7 MG/DL (7-18); CALCIUM 8.4 MG/DL (8.5-10.1); CHLORIDE 97 MEQ/L (98-107); CREATININE 0.42 MG/DL (0.50-1.00); GLOMERULAR FILTRATION RATE 151 ML/MIN (>89); GLUCOSE,RANDOM 90 MG/DL (74-106); SODIUM (NA) 132 MEQ/L (136-145)
[2017-04-14 08:07] LABS: TROPONIN I LESS THAN 0.02 NG/ML (0.02-0.05)
[2017-04-14] MEDS ORDERED: NALOXONE HCL 0.4 MG/ML AMP IV PUSH PRN (08:15)
[2017-04-14] MEDS ORDERED: SENNOSIDES 8.6 MG TAB PO PRN (08:15)
[2017-04-14] MEDS ORDERED: BISACODYL 10 MG SUPP RECTAL PRN (08:15)
[2017-04-14] MEDS ORDERED: BENZONATATE 100 MG CAP PO PRN (08:15)
[2017-04-14] MEDS ORDERED: guaiFENesin/CODEINE SYRUP 200 MG/20 MG/10 ML CUP PO PRN (08:15)
[2017-04-14] MEDS ORDERED: ACETAMINOPHEN 325 MG TAB PO PRN ×2 (08:15)
[2017-04-14] MEDS ORDERED: LACTULOSE SYRUP 20 GM/30 ML CUP PO PRN (08:15)
[2017-04-14] MEDS ORDERED: MAGNESIUM HYDROXIDE SUSP 30 ML CUP PO PRN (08:15)
[2017-04-14] MEDS ORDERED: RESP: ALBUTEROL 2.5 MG/3 ML NEB (PRN) INH (08:15)
[2017-04-14] MEDS: methylPREDNISolone SOD SUCC 40 MG/1 ML VIAL IV PUSH SCH ×2 (08:23→20:42)
[2017-04-14] MEDS: HEPARIN SODIUM - SQ 10,000 UNITS/ML VIAL SQ SCH ×2 (08:23→20:41)
[2017-04-14] MEDS: SERTRALINE HCL 50 MG TAB PO SCH (08:23)
[2017-04-14] MEDS: guaiFENesin E.R. 600 MG TAB PO SCH ×2 (08:23→20:41)
[2017-04-14] MEDS: ATORVASTATIN 40 MG TAB PO SCH (08:24)
[2017-04-14] MEDS: DOCUSATE SODIUM 50 MG/SENNA 8.6 MG TAB PO SCH ×2 (08:24→20:41)
[2017-04-14] MEDS: SODIUM CHLORIDE 0.9% FLUSH 10 ML FLUSH IV FLUSH SCH ×2 (08:24→20:41)
[2017-04-14] MEDS: AZTREONAM INJ 2,000 MG in SODIUM CHLORIDE 0.9% INJ 100 ML IV SCH ×2 (09:17→18:20)
[2017-04-14 09:18] LABS: AMORPHOUS SEDIMENT, URINE OCC; BACTERIA, URINE OCC /hpf; BILIRUBIN, URINE NEG (NEG); BLOOD, URINE SMALL (NEG); GLUCOSE,URINE NEG (NEG); KETONE, URINE NEG (NEG); MUCUS URINE FEW /lpf (OCC); NITRITE,URINE NEG (NEG); SQUAMOUS EPITHELIAL CELL URINE <1 /hpf (0-5); URINE COLOR YELLOW (YELLW/STRAW); URINE LEUKOCYTE ESTERASE NEG (NEG)
[2017-04-14] MEDS: RESP: ALBUTEROL 2.5 MG/IPRATROPIUM 0.5 MG NEB (SCH) INH ×3 (09:51→21:30)
--- NOTE | 2017-04-14 09:54 | HHI.PR ---
Subjective Remarks Follow-up hypoxemia. Patient reports of improving shortness of breath which is worse when she is supine no leg swelling and weight gain. Complains of nonproductive cough discussed with RN Objective Vitals Vital Signs Date Time Temp Pulse Resp B/P (MAP) Pulse Ox O2 Delivery O2 Flow Rate FiO2 04/14/17 06:00 101 04/14/17 05:46 93 Nasal Cannula 5.00 04/14/17 05:09 97 Non-Rebreather 15.00 04/14/17 04:00 87 04/14/17 04:00 98.3 87 34 104/55 (71) 100 04/14/17 02:02 100 Non-Rebreather 15.00 04/14/17 02:00 85 04/14/17 00:00 94 04/14/17 00:00 98.2 94 38 91/53 (66) 100 04/13/17 22:00 95 04/13/17 21:46 97.7 108 20 101/58 (72) 96 04/13/17 19:43 98.7 90 25 87/50 (62) 99 Non-Rebreather 100 04/13/17 18:45 89 25 87/47 (60) 100 Non-Rebreather 100 04/13/17 17:10 88 25 87/47 (60) 96 Non-Rebreather 100 04/13/17 16:25 99 Non-Rebreather 100 04/13/17 16:11 101 35 104/51 (68) 63 04/13/17 15:58 100.6 109 20 124/53 (76) 70 Room Air I/O 04/13/17 04/13/17 04/13/17 04/14/17 04/14/17 04/14/17 07:00 15:00 23:00 07:00 15:00 23:00 Intake Total 500 ml 1250 ml Balance 500 ml 1250 ml Intake Oral 250 ml IV Total 500 ml 1000 ml # Voids 1 4 Result Diagram: 04/14/17 0708 04/14/17 0708 Imaging Last Impressions Lung Scan-V Nuclear Medicine 04/13/17 1630 Signed Impressions: Service Date/Time: Thursday, April 13, 2017 17:36 - CONCLUSION: Some air trapping in the right lung base. No significant perfusion defects are noted. No significant evidence of pulmonary embolism. Akash Long MD Chest X-Ray 04/13/17 5193 Signed Impressions: Service Date/Time: Thursday, April 13, 2017 16:40 - CONCLUSION: Moderate congestive failure Consolidative changes right lower lobe that could be inflammatory. Substantial change from one 718.. Darvin Rutherford MD FACR Objective Remarks GENERAL: This is a thin lady,\, in no apparent distress. SKIN: No rashes, ecchymoses or lesions. Cool and dry. NECK: Trachea midline. No JVD CARDIOVASCULAR: Regular rate and rhythm without murmurs, gallops, or rubs. RESPIRATORY: Bilaterally decreased air entry. Crackles right base GASTROINTESTINAL: Abdomen soft, non-tender, nondistended. No guarding. MUSCULOSKELETAL: Extremities without clubbing, cyanosis, or edema. No calf tenderness. NEUROLOGICAL: Awake and alert.Motor and sensory grossly within normal limits. Normal speech. Procedures none A/P Problem List: (1) Severe hypoxemia ICD Code: R09.02 - Hypoxemia Status: Acute Assessment and Plan Acute respiratory failure secondary to pneumonia and COPD exacerbation. Improving currently tolerating 5 L nasal cannula. Start scheduled nebulizations and IV steroids and wean oxygen. Sepsis secondary to pneumonia . Add aztreonam to IV Levaquin and check urinary pneumococcal and Legionella antigen. Follow-up sputum and blood cultures. Suspect pulm edema on imaging with elevated BNP. Likely secondary to sepsis. Obtain echocardiogram Mild troponin elevation secondary to above. Denies chest pain hyponatremia. Improving hypothyroidism. Continue Synthroid depression. Continue SSRI DVT prophylaxis with heparin. Discharge Planning Patient clinically stable we'll transfer to medical floor David Awan MD Apr 14, 2017 09:54
[2017-04-14] MEDS: LEVOFLOXACIN 750 MG PREMIX INJ 150 ML IV SCH (15:18)
--- NOTE | 2017-04-14 15:57 | EKG ---
Date Performed: 04/13/2017 Time Performed: 16:19:56 PTAGE: 66 years EKG: Sinus rhythm POSSIBLE LEFT ATRIAL ENLARGEMENT BORDERLINE ECG INTERPRETATION BASED ON A DEFAULT AGE OF 40 YEARS NO PREVIOUS TRACING DOCTOR: Nat Muller Interpretating Date/Time 04/14/2017 15:54:55
--- NOTE | 2017-04-14 16:18 | ECHRPT ---
Indication: SHORTNESS OF BREATH CONCLUSIONS Normal left ventricular size. Wall thickness is normal. The left ventricular systolic function is grossly normal on limited imaging. The left atrial size is moderately dilated. The right atrial size is argw-io-qfddydkmcf dilated. Mild mitral valve regurgitation. There is trace tricuspid valve regurgitation. The estimated pulmonary arterial pressure is 41 mmHg. BP: 104 / 55 HR: Rhythm: Sinus MEASUREMENTS (Male / Female) Normal Values Technical Quality:Fair 2D ECHO LV Diastolic Diameter PLAX 4.0 cm 4.2 - 5.9 / 3.9 - 5.3 cm LV Systolic Diameter PLAX 2.3 cm IVS Diastolic Thickness 0.8 cm 0.6 - 1.0 / 0.6 - 0.9 cm LVPW Diastolic Thickness 0.8 cm 0.6 - 1.0 / 0.6 - 0.9 cm LV Relative Wall Thickness 0.4 RV Internal Dim ED PLAX 2.7 cm LVOT Diameter 1.9 cm Aortic Root Diameter 2.8 cm LA Systolic Diameter LX 3.5 cm 3.0 - 4.0 / 2.7 - 3.8 cm M-MODE AV Cusp Separation MM 1.8 cm DOPPLER AV Peak Velocity 143.0 cm/s AV Peak Gradient 8.2 mmHg AV Mean Gradient 4.0 mmHg AV Velocity Time Integral 22.2 cm LVOT Peak Velocity 79.7 cm/s LVOT Peak Gradient 2.5 mmHg LVOT Velocity Time Integral 15.2 cm AV Area Cont Eq vti 1.9 cm AV Area Cont Eq pk 1.6 cm Mitral E Point Velocity 95.8 cm/s Mitral A Point Velocity 71.1 cm/s Mitral E to A Ratio 1.3 LV E' Lateral Velocity 11.6 cm/s Mitral E to LV E' Lateral Ratio 8.3 LV E' Septal Velocity 11.0 cm/s Mitral E to LV E' Septal Ratio 8.7 TR Peak Velocity 278.0 cm/s TR Peak Gradient 30.9 mmHg Right Atrial Pressure 10.0 mmHg Pulmonary Artery Systolic Pressu 40.9 mmHg Right Ventricular Systolic Press 40.9 mmHg PV Peak Velocity 81.2 cm/s PV Peak Gradient 2.6 mmHg FINDINGS LEFT VENTRICLE Normal left ventricular size. Wall thickness is normal. The left ventricular systolic function is grossly normal on limited imaging. RIGHT VENTRICLE Normal right ventricular size and systolic function. LEFT ATRIUM The left atrial size is moderately dilated. RIGHT ATRIUM The right atrial size is hetd-we-tmmcnehddl dilated. ATRIAL SEPTUM Normal atrial septal thickness without atrial level shunting by limited color doppler interrogation. AORTA The aortic root and proximal ascending aorta are normal in size on limited imaging. MITRAL VALVE Mild mitral valve regurgitation. AORTIC VALVE Trileaflet aortic valve. No aortic valve stenosis or regurgitation. TRICUSPID VALVE There is trace tricuspid valve regurgitation. The estimated pulmonary arterial pressure is 41 mmHg. PULMONARY VALVE No pulmonary valve regurgitation or stenosis. VESSELS The inferior vena cava is normal in size. PERICARDIUM No pericardial effusion. Clint Larsen MD (Electronically Signed) Final Date:14 April 2017 16:16
--- NOTE | 2017-04-14 20:28 | EKG ---
Date Performed: 04/13/2017 Time Performed: 23:04:50 PTAGE: 66 years EKG: Sinus rhythm . Short MI interval Septal T wave changes are nonspecific Borderline ECG SINCE PREVIOUS TRACING NO SIGNIFICANT CHANGE PREVIOUS TRACIN04/13/2017 16.19.56 DOCTOR: Nat Muller Interpretating Date/Time 04/14/2017 20:27:49
--- NOTE | 2017-04-14 21:07 | MB ---
cc: LULU HUGHES MD DATE OF CONSULTATION 04/14/[address] Awan REASON FOR CONSULTATION Evaluation for pneumonia HISTORY OF PRESENT ILLNESS Ms. Rodriguez is a 66-year-old female with remote history of smoking, history of hypothyroidism, hypercholesterolemia. The patient was not feeling well for 4-5 days. She went to [facility] on Tuesday, four days ago. She had 102 fever. She was evaluated for this and on Zofran, Tessalon and Zithromax. Over the next tcd-ql-ghlnz days, she kept on having fever 102-103 degrees and she was having shaking chills. She also had nausea. On the day of this admission the patient became pale and fell down and lost control of her bladder. She had no loss of consciousness. With further worsening of symptoms, she was brought to the emergency room. She was found to be severely hypoxic. Her blood gas on non-rebreather mask - pH 7.45, pCO2 36, pO2 70, bicarb 25. CBC showed a risk of 6.1, hemoglobin 9.1, hematocrit 25.3, MCV 96, platelet count 157. Sodium 132, potassium 4.1, chloride 97, CO2 30, BUN seven, creatinine 0.42. Her influenza antigen is negative. Streptococcal antigen are urine antigen are negative. Blood cultures are negative. She is weaned down to 4-5 liters nasal cannula. She started coughing up some phlegm. PAST MEDICAL HISTORY 1. History of hypothyroidism, 2. Anxiety, depression, 3. History of hysterectomy. MEDICATIONS Currently taking 1. Levaquin 750 mg. 2. Albuterol Atrovent nebulizer treatment 3. Aztreonam 2 grams q.8 h. 4. Zoloft 50 mg a day. 5. Lipitor 40 mg a day. 6. Solu-Medrol 40 mg q. 12-hour. 7. Heparin 5000 q. 12-hour 9. Levothyroxine 88 mcg a day. ALLERGIES PENICILLIN AMOXICILLIN SOCIAL HISTORY She is . She is a retired 3 1/2 years ago. She has remote history of smoking. Drinks socially. FAMILY HISTORY One daughter who works in the speech therapy department in this hospital. REVIEW OF SYSTEMS Normally she is up, around and active. Weight is stable, no DVT or pulmonary embolism, no seizure, stroke or epilepsy, no malignancy. PHYSICAL EXAMINATION GENERAL: Thin-built female mildly short of breath not in acute distress. VITAL SIGNS: Blood pressure 101/56, heart rate 80, respirations 26, temperature 98.8 HEENT: Pupils are equal and reactive to light. Oral mucosa, nasal mucosa normal. NECK: Supple. JVP not raised. CHEST: Equal bilaterally. She has bronchial breath sounds on the right base. CARDIOVASCULAR: S1, S2 normal ABDOMEN: Benign. IMPRESSION 1. Pneumonia 2. Hypoxia. No evidence of pulmonary embolism on VQ scan. 3. Underlying COPD 4. Hypothyroidism. 5. Anxiety, depression. PLAN Discussed with the patient and her daughter we will continue with antibiotic, check her cultures. Supplement her oxygen and wean to keep the saturation greater than 90%. She is on IV Solu-Medrol, heparin 5000 subcu for DVT prophylaxis. Once the patient gets better, we will also check her pulmonary function study and evaluate for need for home oxygen therapy. Further treatment will depend on the course in the hospital. Thank you, Dr. Awan, for this consultation. MD KALLI Badillo/ /5:52 PM /8:36 PM MTDJessica
[2017-04-15] VITALS (11 sets, daily range): BP systolic 88–133; BP diastolic 44–77; PULSE 63–104; RESP 12–18; TEMP 96.8–99.1; O2SAT 93–100
[2017-04-15] MEDS: AZTREONAM INJ 2,000 MG in SODIUM CHLORIDE 0.9% INJ 100 ML IV SCH ×3 (02:31→18:00)
[2017-04-15] MEDS: CHLORHEXIDINE GLUCONATE 2 % 1 PACK (2 CLOTHS)(taper/protocol) TOPICAL SCH (02:41)
[2017-04-15] MEDS: LEVOTHYROXINE SODIUM 88 MCG TAB PO SCH (06:23)
[2017-04-15 07:58] LABS: AUTOMATED NEUTROPHIL # 6.3 TH/MM3 (1.8-7.7); BASOPHIL % 0.1 % (0.0-2.0); HEMATOCRIT 26.8 % (35.0-46.0); HEMOGLOBIN 9.4 GM/DL (11.6-15.3); LYMPH % 4.4 % (9.0-44.0); LYMPHOCYTE # 0.3 TH/MM3 (1.0-4.8); MEAN CELL VOLUME 97.7 FL (80.0-100.0); MEAN CORPUSCULAR HEMOGLOBIN 34.3 PG (27.0-34.0); MEAN CORPUSCULAR HGB CONC 35.1 % (32.0-36.0); MEAN PLATELET VOLUME 7.5 FL (7.0-11.0); MONO % 12.7 % (0.0-8.0); NEUT % 82.8 % (16.0-70.0); PLATELET COUNT 213 TH/MM3 (150-450); RED BLOOD COUNT 2.74 MIL/MM3 (4.00-5.30); RED CELL DISTRIBUTION WIDTH 13.3 % (11.6-17.2); WHITE BLOOD COUNT 7.6 TH/MM3 (4.0-11.0)
[2017-04-15] MEDS: RESP: ALBUTEROL 2.5 MG/IPRATROPIUM 0.5 MG NEB (SCH) INH ×4 (08:25→20:14)
[2017-04-15 08:33] LABS: BICARBONATE 31.3 MEQ/L (21.0-32.0); CREATININE 0.36 MG/DL (0.50-1.00); MAGNESIUM 2.2 MG/DL (1.5-2.5)
[2017-04-15 09:37] LABS: BANDS 50 % (0-6); LYMPHOCYTES 2 % (9-44); MONOCYTES 9 % (0-8); MYELOCYTES 1 % (0-0); NEUTROPHIL # MANUAL DIFF 6.8 TH/MM3 (1.8-7.7); POLYS (SEG NEUTROPHILS) 38 % (16-70)
[2017-04-15] MEDS: SERTRALINE HCL 50 MG TAB PO SCH (10:03)
[2017-04-15] MEDS: DOCUSATE SODIUM 50 MG/SENNA 8.6 MG TAB PO SCH ×2 (10:03→21:00)
[2017-04-15] MEDS: ATORVASTATIN 40 MG TAB PO SCH (10:04)
[2017-04-15] MEDS: guaiFENesin E.R. 600 MG TAB PO SCH ×2 (10:04→21:00)
[2017-04-15] MEDS: methylPREDNISolone SOD SUCC 40 MG/1 ML VIAL IV PUSH SCH (10:06)
[2017-04-15] MEDS: HEPARIN SODIUM - SQ 10,000 UNITS/ML VIAL SQ SCH ×2 (10:06→21:00)
[2017-04-15] MEDS: SODIUM CHLORIDE 0.9% FLUSH 10 ML FLUSH IV FLUSH SCH ×2 (10:07→22:48)
--- NOTE | 2017-04-15 10:23 | HHI.PR ---
Subjective Remarks Follow-up pneumonia and COPD. Denies shortness of breath. Patient with limited activity tolerating 4 L. Seen with daughter who is a speech therapist concern about confusion disoriented to time and slow to respond. Discussed with RN Objective Vitals Vital Signs Date Time Temp Pulse Resp B/P (MAP) Pulse Ox O2 Delivery O2 Flow Rate FiO2 04/15/17 08:32 97 Nasal Cannula 4.00 04/15/17 08:00 96.8 67 17 104/57 (73) 100 04/15/17 04:05 97.6 77 18 112/59 (76) 98 04/15/17 03:42 99 04/15/17 00:03 99.1 94 18 133/77 (95) 99 04/15/17 00:03 Nasal Cannula 4.00 Humidified 04/15/17 00:00 104 04/14/17 23:00 Nasal Cannula 4.00 04/14/17 22:44 97 04/14/17 22:00 96 04/14/17 21:33 97 Nasal Cannula 4.00 04/14/17 20:00 79 04/14/17 20:00 98.4 79 37 101/73 (82) 94 04/14/17 18:00 86 04/14/17 16:00 98.8 80 34 101/56 (71) 97 04/14/17 16:00 80 04/14/17 14:01 93 04/14/17 12:00 98.7 86 40 94/52 (66) 96 04/14/17 12:00 86 I/O 04/14/17 04/14/17 04/14/17 04/15/17 04/15/17 04/15/17 07:00 15:00 23:00 07:00 15:00 23:00 Intake Total 1250 ml 100 ml 1100 ml 340 ml Output Total 975 ml Balance 1250 ml 100 ml 125 ml 340 ml Intake Oral 250 ml 850 ml 240 ml IV Total 1000 ml 100 ml 250 ml 100 ml Output Urine Total 975 ml # Voids 4 4 1 # Bowel Movements 0 1 Result Diagram: 04/15/1733 04/15/17 0733 Objective Remarks GENERAL: This is a thin lady in no apparent distress. SKIN: No rashes, ecchymoses or lesions. Cool and dry. NECK: Trachea midline. No JVD CARDIOVASCULAR: Regular rate and rhythm without murmurs, gallops, or rubs. RESPIRATORY: Bilaterally decreased air entry. GASTROINTESTINAL: Abdomen soft, non-tender, nondistended. No guarding. MUSCULOSKELETAL: Extremities without clubbing, cyanosis, or edema. No calf tenderness. NEUROLOGICAL: Awake and alert. Motor and sensory grossly within normal limits. Normal speech. Procedures none A/P Problem List: (1) Severe hypoxemia ICD Code: R09.02 - Hypoxemia Status: Acute Assessment and Plan Acute respiratory failure secondary to pneumonia and COPD exacerbation. Improving currently tolerating 4 L nasal cannula. Wean oxygen and continue scheduled nebulizations and steroids switch to by mouth Sepsis secondary to pneumonia . Stable continue aztreonam and IV Levaquin. Follow-up sputum and blood cultures negative to date. Suspect pulm edema on imaging with elevated BNP. Likely secondary to sepsis. Obtain echocardiogram Encephalopathy which is multifactorial from sepsis, meds and hypoxia. Will evaluate for hypoxic injury. Obtain head CT, EEG, carotid evaluation and neurology consult. Discontinue codeine which patient has not received Mild troponin elevation secondary to above. Denies chest pain hyponatremia. Improving hypothyroidism. Continue Synthroid depression. Continue SSRI DVT prophylaxis with heparin. Discharge Planning Not ready for discharge because of confusion and hypoxia requiring 4 L. Increase activity as tolerated. David Awan MD Apr 15, 2017 10:23
[2017-04-15] MEDS ORDERED: OXYGENDME NAS.CANULA (10:25)
[2017-04-15] MEDS ORDERED: WALKER WHEELS/F1 MIS (10:25)
--- NOTE | 2017-04-15 10:26 | HHI.FF ---
Face to Face Verification Diagnosis: (1) Severe hypoxemia Physical Therapy Order: Evaluate and Treat, Improve ambulation, Strength and gait training Home Health Nursing Order: Medical education Signs/symptoms of disease process Oxygen administration education Medication education-adverse effect Nursing assessment with vital signs I have seen patient Olga Rodriguez on 04/15/17. My clinical findings support the need for the requested home health care services because: Ltd mobility - disease progression Deconditioned w/ increased weakness I certify that my clinical findings support that this patient is homebound because: Need for psychosocial assistance David Awan MD Apr 15, 2017 10:26
--- NOTE | 2017-04-15 10:26 | HHI.DCPOC ---
Discharge Care Plan Diagnosis: (1) Severe hypoxemia Your Health Problems Are: Difficulty with ADL Exercise Tolerance Goals to Promote Your Health * To prevent worsening of your condition and complications * To maintain your health at the optimal level Directions to Meet Your Goals Take your medications as prescribed Follow your dietary instruction Follow activity as directed Keep your appointments as scheduled Take your immunizations and boosters as scheduled If your symptoms worsen call your PCP, if no PCP go to Urgent Care Center or Emergency Room Smoking is Dangerous to Your Health. Avoid second hand smoke Call the 24-hour hour crisis hotline for domestic abuse at David Awan MD Apr 15, 2017 10:26
--- NOTE | 2017-04-15 12:26 | RADRPT ---
EXAM DATE/TIME: 04/15/2017 12:01 [facility] COMPARISON: No previous studies available for comparison. INDICATIONS : Confusion, altered mental status RADIATION DOSE: 34.85 CTDIvol (mGy) MEDICAL HISTORY : Hypothyroidism. SURGICAL HISTORY : Hysterectomy. ENCOUNTER: Initial ACUITY: 4 - 6 days PAIN SCALE: 0/10 LOCATION: cranial TECHNIQUE: Multiple contiguous axial images were obtained of the head. Using automated exposure control and adj ustment of the mA and/or kV according to patient size, radiation dose was kept as low as reasonably a chievable to obtain optimal diagnostic quality images. DICOM format image data is available electro nically for review and comparison. FINDINGS: CEREBRUM: The ventricles are normal for age. No evidence of midline shift, mass lesion, hemorrhage or acute in farction. No extra-axial fluid collections are seen. POSTERIOR FOSSA: The cerebellum and brainstem are intact. The 4th ventricle is midline. The cerebellopontine angle i s unremarkable. EXTRACRANIAL: The visualized portion of the orbits is intact. SKULL: The calvaria is intact. No evidence of skull fracture. CONCLUSION: No acute intracranial process Cornell Tierney MD on April 15, 2017 at 12:22 Board Certified Radiologist. This report was verified electronically.
[2017-04-15] MEDS ORDERED: HALOPERIDOL LACTATE 5 MG/ML AMP IM ONE (14:15)
--- NOTE | 2017-04-15 16:09 | MB ---
cc: NADIRA LEVI MD DATE OF CONSULTATION: 04/15/2016 REASON FOR CONSULTATION: (Confusion). HISTORY OF PRESENT ILLNESS Ms. Rodriguez is a 66-year-old female who presented to the [facility] because of shortness of breath, fever and cough and her oxygen saturation was 64, severely hypoxic, ex smoker stopped smoking 40 years ago. She was noted during hospital stay that she started staying strange words and her comprehension was compromised. Her daughter who is a speech pathologist in the hospital is concerned about her confusing and Becoming disoriented and slow to respond. Thus head CT scan was ordered that was reported with no acute intracranial process. During the encounter the patient was able to identify me has her is a patient who follows with me. But she did not make complete sensible sentences. She was somewhat angry when she talked, she was aware of the place, time, not date, and she was fluently dysphasic with impaired comprehension and was not able to use her cell phone properly when I asked her to text her daughter. She was not able to find the daughter's name and she had some preference to use the left arm and hand despite the fact that she is right handed as per her and her daughter. There was no notable convulsions. No reported seizures overnight. These symptoms started this morning around seven noticed by the daughter. REVIEW OF SYSTEMS A 12-point review of systems negative except for history of the HPI. PAST MEDICAL HISTORY 1. Baseline hypertension 2. Hypothyroidism 3. Depression. PAST SURGICAL HISTORY Hysterectomy. ALLERGIES AMOXICILLIN PENICILLIN LICORICE [place] FAMILY HISTORY Father stroke. Mother ischemic colitis brother diabetes. SOCIAL HISTORY Quit smoking 40 years ago. No ethanol use or drugs. PHYSICAL EXAMINATION GENERAL: Awake, alert, thin, appears confused and dysphasic, anxious, occasionally becomes angry. HEAD, EYES, EARS, NOSE, AND THROAT: Atraumatic, normocephalic. Intact hearing intact vision, nasal cannula for oxygen. GASTROINTESTINAL: Soft abdomen nontender. MUSCULOSKELETAL: No clubbing, no cyanosis, no edema. NEUROLOGIC: Awake, alert, oriented time, person and place. There is paraphasia , intact naming. Intact repetition, abnormal comprehension. No facial palsy was noted. No other cranial nerves are involved. EXTREMITIES: the upper and lower extremities are normal. Unable to accurately assess because of lack of cooperation during the dysphasic symptoms but moves all four extremities equally. Reflexes 2+ bilateral symmetrical. Plantar's bilaterally downgoing. PSYCHOLOGICAL: Intense and angry at times, no hallucinations. DIAGNOSTIC IMAGING: - Head CT scan with no acute abnormality. LABORATORY DATA - White blood cells of 7.6, hemoglobin 9.4, sodium 136 corrected from 132, BUN 13, creatinine 0.36, random glucose 134, lactic acid 1.8, calcium 8.4, INR 1.3. DIAGNOSTIC IMPRESSION 1. Encephalopathy. 2. Dysphasia. - Possible etiology could be secondary to acute, subacute ischemia along the left parietal lesion. - Metabolic encephalopathy secondary to hypoxemia or electrolyte disturbances [ hyponatremia]. 3. Non electrographic seizures. 4. Electroconvulsive seizures 5. Acute respiratory failure secondary to pneumonia. 6. Sepsis. PLAN 1. Next neuro checks q. four hourly. 2. Urgent MRI brain. 3. Electroencephalogram 4. Give a loading dose of Keppra 1 gram 5. Fall and seizure precautions. 6. DVT prophylaxis. 7. GI prophylaxis. 8. I discussed the case with registered nurse and her daughter,a speech pathologist. Thank you for the opportunity to participate in care of your patient. id MD SCHUYLER Archer/irene /3:14 PM /3:34 PM RIDDHI
--- NOTE | 2017-04-15 16:51 | HHI.PR ---
Subjective Remarks 66 YOWF with Pn, depression Breathing better had Episode of confusion, sz Seen by dr.Ossi Carbajal [facility] Objective Vital Signs Vital Signs Date Time Temp Pulse Resp B/P (MAP) Pulse Ox O2 Delivery O2 Flow Rate FiO2 04/15/17 12:00 99.1 89 17 106/52 (70) 95 04/15/17 08:32 97 Nasal Cannula 4.00 04/15/17 08:00 100 Nasal Cannula 4.00 04/15/17 08:00 96.8 67 17 104/57 (73) 100 04/15/17 04:05 97.6 77 18 112/59 (76) 98 04/15/17 03:42 99 04/15/17 00:03 99.1 94 18 133/77 (95) 99 04/15/17 00:03 Nasal Cannula 4.00 Humidified 04/15/17 00:00 104 04/14/17 23:00 Nasal Cannula 4.00 04/14/17 22:44 97 04/14/17 22:00 96 04/14/17 21:33 97 Nasal Cannula 4.00 04/14/17 20:00 79 04/14/17 20:00 98.4 79 37 101/73 (82) 94 04/14/17 18:00 86 I/O 04/14/17 04/14/17 04/14/17 04/15/17 04/15/17 04/15/17 07:00 15:00 23:00 07:00 15:00 23:00 Intake Total 1250 ml 100 ml 1100 ml 340 ml Output Total 975 ml Balance 1250 ml 100 ml 125 ml 340 ml Intake Oral 250 ml 850 ml 240 ml IV Total 1000 ml 100 ml 250 ml 100 ml Output Urine Total 975 ml # Voids 4 4 1 # Bowel Movements 0 1 Result Diagram: 04/15/1773204/15/17 0733 Objective Remarks GENERAL: MBMNWF mild sob SKIN: Warm and dry. HEAD: Normocephalic. EYES: No scleral icterus. No injection or drainage. NECK: Supple, trachea midline. No JVD or lymphadenopathy. CARDIOVASCULAR: Regular rate and rhythm without murmurs, gallops, or rubs. RESPIRATORY: Breath sounds equal bilaterally. No accessory muscle use. Bronchial BS right base GASTROINTESTINAL: Abdomen soft, non-tender, nondistended. MUSCULOSKELETAL: No cyanosis, or edema. BACK: Nontender without obvious deformity. No CVA tenderness. A/P Assessment and Plan Pneumonia Encephalopathy Sz depression PLAN: cont Abx Supplement 02 Aerosol nebs Parmjit per Neuro Mihai Pegn MD Apr 15, 2017 16:51
[2017-04-15] MEDS: LEVOFLOXACIN 750 MG PREMIX INJ 150 ML IV SCH (17:00)
[2017-04-15] MEDS ORDERED: HALOPERIDOL LACTATE 5 MG/ML AMP IM PRN (17:15)
[2017-04-15] MEDS: LORazepam 2 MG/ML VIAL IV PRN (17:37)
[2017-04-15] MEDS: SODIUM CHLORIDE 0.9% FLUSH 10 ML FLUSH IV FLUSH PRN (17:42)
--- NOTE | 2017-04-15 19:22 | RADRPT ---
EXAM DATE/TIME: 04/15/2017 18:01 [facility] COMPARISON: No previous studies available for comparison. INDICATIONS : Dysphasia. MEDICAL HISTORY : Osteoarthritis. Hypertension. Hypothyroidism. SURGICAL HISTORY : Hysterectomy. ENCOUNTER: Subsequent ACUITY: 2 day PAIN SCORE: 0/10 LOCATION: cranial TECHNIQUE: Multiplanar, multisequence MRI of the brain was performed without contrast. FINDINGS: CEREBRUM: The ventricles are normal for age. No evidence of midline shift, mass lesion, hemorrhage or acute in farction. No extraaxial fluid collections are seen. The pituitary gland and suprasellar cistern are normal in configuration. WHITE MATTER: No significant signal abnormalities are seen in the white matter. POSTERIOR FOSSA: The cerebellum and brainstem are intact. The 4th ventricle is midline. The cerebellopontine angle is unremarkable. The cerebellar tonsils are normal in position. DIFFUSION IMAGING: No focal areas of restricted diffusion are seen. No evidence of acute infarction. EXTRACRANIAL: Moderate severity bilateral maxillary and ethmoid sinus disease. CONCLUSION: No acute intracranial findings. Bilateral ethmoid and maxillary sinus disease. Air-fluid level in the right maxillary sinus suggests acute sinusitis. Bernardo Cook MD on April 15, 2017 at 19:18 Board Certified Radiologist. This report was verified electronically.
[2017-04-15] MEDS: levETIRAcetam 500 MG TAB PO SCH (21:00)
[2017-04-15] MEDS ORDERED: DEXT 5%-NACL 0.9% 1000 ML INJ 1,000 ML IV SCH (23:00)
[2017-04-16] VITALS (15 sets, daily range): BP systolic 91–121; BP diastolic 44–65; PULSE 72–113; RESP 12–30; TEMP 96.9–99.9; O2SAT 93–100
[2017-04-16] MEDS: LORazepam 2 MG/ML VIAL IV PRN (00:54)
[2017-04-16] MEDS: AZTREONAM INJ 2,000 MG in SODIUM CHLORIDE 0.9% INJ 100 ML IV SCH ×3 (01:56→18:15)
[2017-04-16] MEDS: CHLORHEXIDINE GLUCONATE 2 % 1 PACK (2 CLOTHS)(taper/protocol) TOPICAL SCH (04:00)
[2017-04-16] MEDS: LEVOTHYROXINE SODIUM 88 MCG TAB PO SCH (06:00)
[2017-04-16] MEDS ORDERED: levETIRAcetam INJ 500 MG in SODIUM CHLORIDE 0.9% INJ 100 ML IV PRN (09:00)
[2017-04-16] MEDS: DOCUSATE SODIUM 50 MG/SENNA 8.6 MG TAB PO SCH ×2 (09:00→21:36)
[2017-04-16] MEDS: SERTRALINE HCL 50 MG TAB PO SCH (09:00)
[2017-04-16] MEDS: guaiFENesin E.R. 600 MG TAB PO SCH (09:00)
[2017-04-16] MEDS: levETIRAcetam 500 MG TAB PO SCH ×2 (09:00→21:36)
[2017-04-16] MEDS: ATORVASTATIN 40 MG TAB PO SCH (09:00)
[2017-04-16] MEDS ORDERED: LORazepam 2 MG/ML VIAL IV PUSH PRN (09:15)
--- NOTE | 2017-04-16 10:06 | HHI.PR ---
Subjective Remarks Follow-up pneumonia and encephalopathy. Patient sedated after receiving Ativan earlier today. According to daughter, patient was worse after I saw her. She became agitated received Haldol and Ativan. Discussed with RN Objective Vitals Vital Signs Date Time Temp Pulse Resp B/P (MAP) Pulse Ox O2 Delivery O2 Flow Rate FiO2 04/16/17 08:00 98.9 92 19 105/58 (74) 93 04/16/17 04:27 96.9 80 17 121/65 (83) 96 04/16/17 00:19 98.1 74 18 108/54 (72) 98 04/15/17 20:25 96.9 72 18 99/56 (70) 100 04/15/17 20:14 93 Nasal Cannula 4.00 04/15/17 17:48 66 12 93/53 (66) 04/15/17 16:00 63 04/15/17 16:00 96.9 63 17 88/44 (59) 93 04/15/17 12:00 99.1 89 17 106/52 (70) 95 04/15/17 12:00 89 I/O 04/15/17 04/15/17 04/15/17 04/16/17 04/16/17 04/16/17 07:00 15:00 23:00 07:00 15:00 23:00 Intake Total 340 ml 320 ml 120 ml 0 ml Balance 340 ml 320 ml 120 ml 0 ml Intake Oral 240 ml 320 ml 120 ml 0 ml IV Total 100 ml # Voids 1 2 0 0 # Bowel Movements 1 0 0 0 Result Diagram: 04/15/17 0733 04/15/17 0733 Imaging Last Impressions Chest X-Ray 04/16/17 0000 Signed Impressions: Service Date/Time: Sunday, April 16, 2017 13:05 - CONCLUSION: Significant change. The findings remain most characteristic of congestive heart failure. Ori Yoder MD Head CT 04/15/17 0000 Signed Impressions: Service Date/Time: Saturday, April 15, 2017 12:01 - CONCLUSION: No acute intracranial process Cornell Tierney MD Brain MRI 04/15/17 0000 Signed Impressions: Service Date/Time: Saturday, April 15, 2017 18:01 - CONCLUSION: No acute intracranial findings. Bilateral ethmoid and maxillary sinus disease. Air- fluid level in the right maxillary sinus suggests acute sinusitis. Bernardo Cook MD Lung Scan-V Nuclear Medicine 04/13/17 1630 Signed Impressions: Service Date/Time: Thursday, April 13, 2017 17:36 - CONCLUSION: Some air trapping in the right lung base. No significant perfusion defects are noted. No significant evidence of pulmonary embolism. Akash Long MD Objective Remarks GENERAL: This is a thin lady in no apparent distress. SKIN: No rashes, ecchymoses or lesions. Cool and dry. NECK: Trachea midline. No JVD CARDIOVASCULAR: Regular rate and rhythm without murmurs, gallops, or rubs. RESPIRATORY: Bilaterally decreased air entry. GASTROINTESTINAL: Abdomen soft, non-tender, nondistended. No guarding. MUSCULOSKELETAL: Extremities without clubbing, cyanosis, or edema. No calf tenderness. NEUROLOGICAL: Awake and alert. Motor and sensory grossly within normal limits. Normal speech. Procedures none A/P Problem List: (1) Severe hypoxemia ICD Code: R09.02 - Hypoxemia Status: Acute Assessment and Plan Acute respiratory failure secondary to pneumonia and COPD exacerbation. Currently tolerating 4 L nasal cannula. Wean oxygen and continue scheduled nebulizations Sepsis secondary to pneumonia . Stable continue aztreonam and added IV vanco per pulmo. Follow-up sputum and blood cultures negative to date. Suspect pulm edema on imaging with elevated BNP. Likely secondary to sepsis. Unremarkable echocardiogram Encephalopathy which is multifactorial from sepsis, meds and hypoxia. Possible sz. HCT and BMRI noted f/u EEG. Per daughter, pt's two brothers developed psychosis from Levaquin. Discontinue codeine. levaquin and steroids. Neuro checks and sz precautions. IV ativan for agitation Mild troponin elevation secondary to above. Denies chest pain hyponatremia. Improving hypothyroidism. Continue Synthroid depression. Continue SSRI DVT prophylaxis with heparin. Discharge Planning Not ready for discharge because of confusion and hypoxia requiring 4 L. Increase activity as tolerated. David Awan MD Apr 16, 2017 10:06
[2017-04-16] MEDS: HEPARIN SODIUM - SQ 10,000 UNITS/ML VIAL SQ SCH (10:07)
[2017-04-16] MEDS: SODIUM CHLORIDE 0.9% FLUSH 10 ML FLUSH IV FLUSH SCH ×2 (10:08→21:34)
[2017-04-16] MEDS: RESP: ALBUTEROL 2.5 MG/IPRATROPIUM 0.5 MG NEB (SCH) INH ×4 (10:09→19:51)
[2017-04-16] MEDS ORDERED: NS + KCL 20 MEQ INJ 1,000 ML IV PRN (11:00)
--- NOTE | 2017-04-16 11:02 | HHI.PR ---
Review/Management Diagnosis 1. Encephalopathy - likely etiology is hypoxic and /or metabolic. 2. Acute respiratory failure secondary to pneumonia. 3. Pneumonia 4. Sepsis. Plan - Neuro checks q. four hourly. - Keppra 500mg Q12h - Fall and seizure precautions. - DVT prophylaxis. - GI prophylaxis. - I discussed the case with registered nurse and her daughter and the patient's over the phone Diagnosis/Plan: Subjective Subjective Comments Patient is asleep during the encounter Daughter at bed side Reported confusion and mild agitation last afternoon, received Ativan, followed by improvement in her cognitive status as stated by daughter Patient refused Keppra po MRI brain with no evidence of acute intracranial abnormality EEG is unremarkable Active Medications Current Medications Medications (Trade) Dose Ordered Sig/Renetta Route Start Time Stop Time Status Last Admin (NS Flush) 2 ml UNSCH PRN IV FLUSH 04/13/17 18:45 04/15/17 17:42 (NS Flush) 2 ml BID IV FLUSH 04/13/17 21:00 04/16/17 10:08 (Narcan Inj) 0.4 mg UNSCH PRN IV PUSH 04/13/17 18:45 Miscellaneous Information Patient in critical care unit? Ass... [id number] .XX 04/13/17 22:00 04/13/17 22:00 (Chlorhexidine 2% Cloth) 3 pack DAILY@04 TOPICAL 04/14/17 04:00 04/18/17 04:01 04/14/17 04:00 (Chlorhexidine 2% Cloth) 3 pack UNSCH PRN TOPICAL 04/13/17 22:00 04/18/17 21:53 (Synthroid) 88 mcg DAILY@0600 PO 04/14/17 06:00 04/15/17 06:23 (Zoloft) 50 mg DAILY PO 04/14/17 09:00 04/15/17 10:03 (Lipitor) 40 mg DAILY PO 04/14/17 09:00 04/15/17 10:04 (Tessalon) 200 mg Q8H PRN PO 04/14/17 08:15 (Mucinex Er) 600 mg BID PO 04/14/17 09:00 04/15/17 10:04 Aztreonam 2000 mg/ Sodium Chloride 100 ml @ 200 mls/hr Q8H IV 04/14/17 10:00 04/16/17 08:44 (Duoneb Neb) 1 ampule QID NEB INH 04/14/17 12:00 04/16/17 10:09 (Albuterol Neb) 2.5 mg Q2HR NEB PRN INH 04/14/17 08:15 (Tylenol) 650 mg Q4H PRN PO 04/14/17 08:15 (Zofran Inj) 4 mg Q6H PRN IVP 04/14/17 08:15 (Heparin Inj) 5,000 units Q12H SQ 04/14/17 09:00 04/16/17 10:07 (Tylenol) 650 mg Q6H PRN PO 04/14/17 08:15 (Narcan Inj) 0.4 mg UNSCH PRN IV PUSH 04/14/17 08:15 (Aicha-Colace) 1 tab BID PO 04/14/17 09:00 04/15/17 10:03 (Milk Of Magnesia Liq) 30 ml Q12H PRN PO 04/14/17 08:15 (Senokot) 17.2 mg Q12H PRN PO 04/14/17 08:15 (Dulcolax Supp) 10 mg DAILY PRN RECTAL 04/14/17 08:15 (Lactulose Liq) 30 ml DAILY PRN PO 04/14/17 08:15 (Ativan Inj) 0.5 mg Q6H PRN IV 04/15/17 17:15 04/16/17 00:54 (Haldol Inj) 1 mg Q8H PRN IM 04/15/17 17:15 (Keppra) 500 mg Q12HR PO 04/15/17 21:00 Dextrose/Sodium Chloride 1,000 ml @ 75 mls/hr [id number] IV 04/15/17 23:00 04/16/17 12:19 04/15/17 22:48 (Ativan Inj) 1 mg Q2H PRN IV PUSH 04/16/17 09:15 Levetriacetam 500 mg/Sodium Chloride 105 ml @ 420 mls/hr Q12HR PRN IV 04/16/17 09:00 04/16/17 09:59 Potassium Chloride/Sodium Chloride 1,000 ml @ 42 mls/hr [id number] PRN IV 04/16/17 11:00 Allergies Allergies Coded Allergies amoxicillin (Verified Allergy, Severe, HIVES, THROAT CLOSES, 04/13/17) Penicillins (Verified Allergy, Intermediate, HIVES, THROAT CLOSING, 04/13/17) licorice (Verified Allergy, Intermediate, HIVES, 04/13/17) pineapple (Verified Allergy, Intermediate, HIVES, 04/13/17) shellfish derived (Verified Allergy, Intermediate, Anaphylaxis, 04/13/17) strawberry (Verified Allergy, Intermediate, HIVES, 04/13/17) Review of Systems All other ROS: ROS reviewed as documented in chart Exam I&O / VS Vital Signs Date Time Temp Pulse Resp B/P (MAP) Pulse Ox O2 Delivery O2 Flow Rate FiO2 04/16/17 10:12 97 Nasal Cannula 4.00 04/16/17 08:00 93 Nasal Cannula 4.00 04/16/17 08:00 98.9 92 19 105/58 (74) 93 04/16/17 08:00 92 04/16/17 04:27 96.9 80 17 121/65 (83) 96 04/16/17 00:19 98.1 74 18 108/54 (72) 98 04/15/17 20:25 96.9 72 18 99/56 (70) 100 04/15/17 20:14 93 Nasal Cannula 4.00 04/15/17 17:48 66 12 93/53 (66) 04/15/17 16:00 63 04/15/17 16:00 96.9 63 17 88/44 (59) 93 04/15/17 12:00 99.1 89 17 106/52 (70) 95 04/15/17 12:00 89 Exam Comments GENERAL: Awake, alert, thin, appears confused and dysphasic, anxious, visually becomes angry. HEAD, EYES, EARS, NOSE, AND THROAT: Atraumatic, normocephalic. Intact hearing intact vision, nasal cannula for oxygen. GASTROINTESTINAL: Soft abdomen nontender. MUSCULOSKELETAL: No clubbing, no cyanosis, no edema. NEUROLOGIC: Awake, alert, oriented time, person and place. There is paraphasia, intact naming. Intact repetition, abnormal comprehension. No facial palsy was noted. No other cranial nerves are involved. EXTREMITIES: the upper and lower extremities are normal. Unable to accurately assess because of lack of cooperation during the dysphasic symptoms but moves all four extremities equally. Reflexes 2+ bilateral symmetrical. Plantar's bilaterally downgoing. PSYCHOLOGICAL: Intense and angry at times, no hallucinations. Objective Radiology Results Last [address] 04/15/17 0000 Signed Impressions: Service Date/Time: Saturday, April 15, 2017 12:01 - CONCLUSION: No acute intracranial process Cornell Tierney MD Brain MRI 04/15/17 0000 Signed Impressions: Service Date/Time: Saturday, April 15, 2017 18:01 - CONCLUSION: No acute intracranial findings. Bilateral ethmoid and maxillary sinus disease. Air- fluid level in the right maxillary sinus suggests acute sinusitis. Bernardo Cook MD Lung Scan- Nuclear Medicine 04/13/17 1630 Signed Impressions: Service Date/Time: Thursday, April 13, 2017 17:36 - CONCLUSION: Some air trapping in the right lung base. No significant perfusion defects are noted. No significant evidence of pulmonary embolism. Akash Long MD Chest X-Ray 04/13/17 1615 Signed Impressions: Service Date/Time: Thursday, April 13, 2017 16:40 - CONCLUSION: Moderate congestive failure Consolidative changes right lower lobe that could be inflammatory. Substantial change from one 718.. Darvin Rutherford MD FACR Micro and Labs Date/Time Source Procedure Growth Status 04/13/17 16:30 Blood Peripheral Aerobic Blood Culture - Preliminary NO GROWTH IN 2 DAYS Resulted 04/13/17 16:30 Blood Peripheral Anaerobic Blood Culture - Preliminary NO GROWTH IN 2 DAYS Resulted 04/13/17 23:48 Nasal Washing Influenza Types A,B Antigen (HARINDER) - Final NEGATIVE FOR FLU A AND B ANTIGEN.... Complete 04/13/17 19:20 Urine Random Urine Streptococcus pneumoniae Antigen (M - Final PRESUMPTIVE NEGATIVE FOR STREPTOCOCCU... Complete Aarti Lew MD Apr 16, 2017 11:02
--- NOTE | 2017-04-16 13:09 | HHI.PR ---
Subjective Remarks Patient is lying in bed in NAD. T:99.9 Objective Vital Signs Vital Signs Date Time Temp Pulse Resp B/P (MAP) Pulse Ox O2 Delivery O2 Flow Rate FiO2 04/16/17 12:00 99.9 113 21 92/44 (60) 93 04/16/17 10:12 97 Nasal Cannula 4.00 04/16/17 08:00 93 Nasal Cannula 4.00 04/16/17 08:00 98.9 92 19 105/58 (74) 93 04/16/17 08:00 92 04/16/17 04:27 96.9 80 17 121/65 (83) 96 04/16/17 00:19 98.1 74 18 108/54 (72) 98 04/15/17 20:25 96.9 72 18 99/56 (70) 100 04/15/17 20:14 93 Nasal Cannula 4.00 04/15/17 17:48 66 12 93/53 (66) 04/15/17 16:00 63 04/15/17 16:00 96.9 63 17 88/44 (59) 93 I/O 04/15/17 04/15/17 04/15/17 04/16/17 04/16/17 04/16/17 07:00 15:00 23:00 07:00 15:00 23:00 Intake Total 340 ml 320 ml 120 ml 0 ml Balance 340 ml 320 ml 120 ml 0 ml Intake Oral 240 ml 320 ml 120 ml 0 ml IV Total 100 ml # Voids 1 2 0 0 # Bowel Movements 1 0 0 0 Result Diagram: 04/15/17 0733 04/15/17 0733 Other Results Last Impressions Head CT 04/15/17 0000 Signed Impressions: Service Date/Time: Saturday, April 15, 2017 12:01 - CONCLUSION: No acute intracranial process Cornell Tierney MD Brain MRI 04/15/17 0000 Signed Impressions: Service Date/Time: Saturday, April 15, 2017 18:01 - CONCLUSION: No acute intracranial findings. Bilateral ethmoid and maxillary sinus disease. Air- fluid level in the right maxillary sinus suggests acute sinusitis. Bernardo Cook MD Lung Scan- Nuclear Medicine 04/13/17 1630 Signed Impressions: Service Date/Time: Thursday, April 13, 2017 17:36 - CONCLUSION: Some air trapping in the right lung base. No significant perfusion defects are noted. No significant evidence of pulmonary embolism. Akash Long MD Chest X-Ray 04/13/17 1615 Signed Impressions: Service Date/Time: Thursday, April 13, 2017 16:40 - CONCLUSION: Moderate congestive failure Consolidative changes right lower lobe that could be inflammatory. Substantial change from one 718.. Darvin Rutherford MD FACR Objective Remarks GENERAL: Patient is 66 yo lying in bed in NAD SKIN: Warm and dry. HEAD: Normocephalic. EYES: No scleral icterus. No injection or drainage. NECK: Supple, trachea midline. No JVD or lymphadenopathy. CARDIOVASCULAR: Regular rate and rhythm without murmurs, gallops, or rubs. RESPIRATORY: Breath sounds equal bilaterally. No accessory muscle use. GASTROINTESTINAL: Abdomen soft, non-tender, nondistended. MUSCULOSKELETAL: No cyanosis, or edema. BACK: Nontender without obvious deformity. No CVA tenderness. Neuro: Encephalopathic A/P Assessment and Plan 1)Resp Insuff 2)Pneumonia 3)Encephalopathy 4)Sz 5)depression 6)Hypothyroidism PLAN: Continued with oxygen keep sat >92% Bronchodilators, aspiration precautions Check CXR and ABG Given mental status and hypotension will transfer to ICU, Give NS 1L Continue with abx (Aztreonam) add Vanco 1gram x1, check BC, sputum cx Strep pneumonia, Legionella urinary Ag and Influenza all negative. Monitor neuro status- On keppra. Neuro is following Continue with IVF. GI/DVT prophylaxis Continue treatment plan. Claudette Bradford MD Apr 16, 2017 13:09
[2017-04-16] MEDS ORDERED: SODIUM CHLOR 0.9% 1000 ML INJ 1,000 ML IV ONE ×2 (13:30→15:00)
--- NOTE | 2017-04-16 13:37 | RADRPT ---
EXAM DATE/TIME: 04/16/2017 13:05 [facility] COMPARISON: CHEST SINGLE AP, April 13, 2017, 16:40. INDICATIONS : Fever and shortness of breath. MEDICAL HISTORY : Osteoarthritis. Hypertension. Hypothyroidism SURGICAL HISTORY : Hysterectomy. ENCOUNTER: Subsequent ACUITY: 4 - 6 days PAIN SCORE: Non-responsive. LOCATION: chest FINDINGS: A single erect view of the chest was obtained and demonstrated perihilar and bibasilar consolidative infiltrates with small left effusion. The heart size appears mildly enlarged. The findings are not si gnificantly changed. Overlying electrocardiogram leads are present. There are mild atherosclerotic ch anges in the aorta. CONCLUSION: Significant change. The findings remain most characteristic of congestive heart failu re. Ori Yoder MD on April 16, 2017 at 13:32 Board Certified Radiologist. This report was verified electronically.
[2017-04-16 13:58] LABS: AUTOMATED NEUTROPHIL # 9.9 TH/MM3 (1.8-7.7); BASOPHIL % 0.2 % (0.0-2.0); EOSINOPHIL % 0.1 % (0.0-4.0); HEMATOCRIT 26.4 % (35.0-46.0); HEMOGLOBIN 9.1 GM/DL (11.6-15.3); LYMPH % 5.7 % (9.0-44.0); LYMPHOCYTE # 0.7 TH/MM3 (1.0-4.8); MEAN CELL VOLUME 97.6 FL (80.0-100.0); MEAN CORPUSCULAR HEMOGLOBIN 33.7 PG (27.0-34.0); MEAN CORPUSCULAR HGB CONC 34.5 % (32.0-36.0); MEAN PLATELET VOLUME 6.6 FL (7.0-11.0); MONO % 10.3 % (0.0-8.0); MONOCYTE # 1.2 TH/MM3 (0-0.9); NEUT % 83.7 % (16.0-70.0); PLATELET COUNT 291 TH/MM3 (150-450); RED BLOOD COUNT 2.71 MIL/MM3 (4.00-5.30); RED CELL DISTRIBUTION WIDTH 13.4 % (11.6-17.2); WHITE BLOOD COUNT 11.8 TH/MM3 (4.0-11.0)
[2017-04-16] MEDS ORDERED: VANCOMYCIN INJ 1,000 MG in SODIUM CHLOR 0.9% 250 ML INJ 250 ML IV ONE (14:00)
[2017-04-16] MEDS ORDERED: ROCURONIUM INJ 100 MG/10 ML VIAL IV ONE (14:15)
[2017-04-16] MEDS ORDERED: ETOMIDATE 40 MG/20 ML VIAL IV PUSH ONE (14:15)
[2017-04-16 14:17] LABS: BICARBONATE 31.9 MEQ/L (21.0-32.0); CALCIUM 8.2 MG/DL (8.5-10.1); CREATININE 0.37 MG/DL (0.50-1.00)
[2017-04-16 14:27] LABS: BANDS 27 % (0-6); LYMPHOCYTES 6 % (9-44); METAMYELOCYTES 1 % (0-1); MONOCYTES 6 % (0-8); NEUTROPHIL # MANUAL DIFF 10.4 TH/MM3 (1.8-7.7); POLYS (SEG NEUTROPHILS) 60 % (16-70)
[2017-04-16] MEDS ORDERED: POTASSIUM CHLOR 20 MEQ PREMIX 100 ML IV PRN ×3 (14:30→16:15)
[2017-04-16] MEDS ORDERED: MAGNESIUM SULFATE INJ 4 GM in SODIUM CHLORIDE 0.9% INJ 92 ML IV PRN ×2 (14:30→16:15)
[2017-04-16] MEDS ORDERED: POTASSIUM PHOSPHATE MONOBASIC 500 MG TAB PO PRN ×2 (14:30→16:15)
[2017-04-16] MEDS ORDERED: MAGNESIUM OXIDE 400 MG TAB PO PRN ×2 (14:30→16:15)
[2017-04-16] MEDS ORDERED: POTASSIUM CHLORIDE 25 MEQ EFFERVESCENT TAB PO PRN ×2 (14:30→16:15)
[2017-04-16] MEDS ORDERED: MAGNESIUM SULFATE INJ 2 GM in SODIUM CHLORIDE 0.9% INJ 96 ML IV PRN ×2 (14:30→16:15)
[2017-04-16] MEDS ORDERED: SODIUM PHOSPHATE INJ 30 MMOL in SODIUM CHLOR 0.9% 250 ML INJ 240 ML IV PRN ×2 (14:30→16:15)
[2017-04-16] MEDS ORDERED: POTASSIUM PHOSPHATE MONOBASIC 500 MG TAB PO/TUBE PRN ×2 (14:30→16:15)
[2017-04-16] MEDS ORDERED: POTASSIUM CHLOR 40 MEQ PREMIX 100 ML IV PRN ×4 (14:30→16:15)
[2017-04-16] MEDS ORDERED: PHENYLEPHRINE HCL 10 MG/ML VIAL ONE ×2 (14:59)
[2017-04-16] MEDS ORDERED: POTASSIUM PHOSPHATE INJ 30 MMOL in SODIUM CHLOR 0.9% 250 ML INJ 250 ML IV PRN ×2 (15:00→16:15)
[2017-04-16] MEDS ORDERED: TERBUTALINE INJ 1 MG/ML AMP SQ PRN (15:00)
[2017-04-16] MEDS ORDERED: ROCURONIUM INJ 50 MG/5 ML VIAL ONE (15:03)
[2017-04-16] MEDS ORDERED: PROPOFOL 500 MG/50 ML INJ 50 ML ONE (15:33)
--- NOTE | 2017-04-16 15:46 | PD.PROCEDR ---
Procedure Note Procedure DATE: 04/16/2017 PROCEDURE: Orotracheal intubation INDICATION: Acute hypoxic hypercapnic respiratory failure DETAILS OF PROCEDURE The patient was placed in optimal position and preoxygenated with 100% FiO2 via bag valve mask. At the start oxygen saturation was 95%. The patient was administered 20 mg etomidate IV and 50 milligrams rocuronium IV. I entered the oropharynx with a size 4 GVL Glidescope blade and obtained a grade 2 view of the airway. On single attempt a size 8.0 cuffed endotracheal tube was passed through the vocal cords. Correct tube location was confirmed with end tidal CO2 detector and by auscultating over bilateral lung barajas. The endotracheal tube was secured with adhesive tape at a depth of 23 cm at the lips. The patient was connected to the ventilator. The patient tolerated the procedure well without any apparent complications. Oxygen saturations were maintained greater than 95% all times. STAT chest x-ray pending at time of dictation. Misael Morales MD Apr 16, 2017 15:46
--- NOTE | 2017-04-16 15:47 | PD.PROCEDR ---
Central Line Procedure REASON FOR PROCEDURE Central venous access PROCEDURE PERFORMED Central line placement: Left IJ CONSENT Informed consent for procedure was obtained. The risks and benefits of the procedure were discussed to include but limited to bleeding, clot formation, infection, and even . ANESTHESIA Local injection of 1% Lidocaine DESCRIPTION OF THE PROCEDURE The patient was placed in supine, mild Trendelenburg position. The area was exposed and cleansed with ChloraPrep, times two. Large sterile drape was used to cover the patient, with the site exposed, under sterile conditions including cap, face mask, sterile gown, and sterile gloves. On single attempt, the introducer needle was inserted with negative pressure in syringe and venous flash was obtained. The guide wire was then advanced without any restriction and the needle was removed. The dilator was used without any complications. Using Seldinger technique the antibiotic coated triple-lumen catheter was advanced over the guide wire to a depth of 20 centimeters. The guide wire was removed. All ports were aspirated with dark venous blood return and flushed easily with sterile saline. All ports were capped. Antibiotic disc was placed around central line at puncture site. The central line was secured to the skin with two interrupted 2.0 silk sutures. The area was bandaged with sterile see- through central line bandage. RADIOLOGICAL DATA Ultrasound guidance was used to locate left internal jugular vein. Doppler/ color flow was used to confirm venous flow. COMPLICATIONS: No apparent complications ESTIMATED BLOOD LOSS: Less than 1 cc. Misael Morales MD Apr 16, 2017 15:47
--- NOTE | 2017-04-16 15:48 | PD.CONS ---
[facility] Service Critical Care Medicine Consult Requested By Dr. Bradford Reason for Consult Acute hypercapnic respiratory failure Primary Care Physician Katerina Horton MD History of Present Illness This is a 66-year-old female. Date of admission 04/13/2017. Date of consultation 04/16/2017. Past medical history includes dyslipidemia, hypothyroidism and depression.visual illness symptoms onset occurred at the beginning of April. She seen at [facility] for febrile illness. She received azithromycin, Tessalon Perles and ondansetron. He came to have fevers chills. Upon presentation to the ED on 04/13 patient's studies. Hypoxic and placed on nonrebreather mask. CULTURES were negative. The hospitalist and patient had a "seizure activity". She has intermittent confusion receiving levofloxacin. She has been seen in consultation by neurology. She is currently on levetiracetam from neurology standpoint. Workup including EEG and MRI brain essentially within normal limits. Today, pulmonology evaluated patient to be With rapid shallow breathing. Patient has received lorazepam and haloperidol within the past 24 hours due to "agitation". No seizure activity noted. Upon arrival to the ICU, patient was reread was in the 40s. Elective intubation. Central line placement. Review of Systems ROS Limitations: Intubated Past Family Social History Allergies: Coded Allergies: amoxicillin (Verified Allergy, Severe, HIVES, THROAT CLOSES, 04/13/17) levofloxacin (Verified Allergy, Severe, Psychosis, 04/16/17) Pt has severe Pstchosis, Hallucinations, & aggitation Penicillins (Verified Allergy, Intermediate, HIVES, THROAT CLOSING, ) licorice (Verified Allergy, Intermediate, HIVES, 04/13/17) pineapple (Verified Allergy, Intermediate, HIVES, 04/13/17) shellfish derived (Verified Allergy, Intermediate, Anaphylaxis, 04/13/17) strawberry (Verified Allergy, Intermediate, HIVES, 04/13/17) Past Medical History Depression Hypothyroidism Dyslipidemia Past Surgical History Hysterectomy Reported Medications Levothyroxine 88 g daily Sertraline 50 mill grams by mouth daily Rosuvastatin 20 mg by mouth daily Active Ordered Medications Reviewed in EMR Family History Father from CVA. Mother is alive at age 94. History of ischemic lites. Brother with diabetes mellitus. Social History Quit tobacco 40 years ago. Less than 10 pack years. Occasional wine use. Denies illicit drug use. Physical Exam Vital Signs Vital Signs Date Time Temp Pulse Resp B/P (MAP) Pulse Ox O2 Delivery O2 Flow Rate FiO2 04/16/17 12:00 99.9 113 21 92/44 (60) 93 04/16/17 12:00 90 Nasal Cannula 3.00 04/16/17 10:12 97 Nasal Cannula 4.00 04/16/17 10:00 93 Nasal Cannula 4.00 04/16/17 08:00 93 Nasal Cannula 4.00 04/16/17 08:00 98.9 92 19 105/58 (74) 93 04/16/17 08:00 92 04/16/17 04:27 96.9 80 17 121/65 (83) 96 04/16/17 00:19 98.1 74 18 108/54 (72) 98 04/15/17 20:25 96.9 72 18 99/56 (70) 100 04/15/17 20:14 93 Nasal Cannula 4.00 04/15/17 17:48 66 12 93/53 (66) 04/15/17 16:00 63 04/15/17 16:00 96.9 63 17 88/44 (59) 93 Physical Exam GENERAL: 66-year-old female critically ill currently orotracheally intubated SKIN: Warm and dry. Well perfused HEAD: Atraumatic. Normocephalic. EYES: Pupils equal and round about 3 Ruiz's bilaterally and reactive. No scleral icterus. No injection or drainage. ENT: No nasal bleeding or discharge. Mucous membranes pink and moist. NECK: Trachea midline. No JVD. CARDIOVASCULAR: Tachycardic, RR. S1, S2 no S4. Without murmur RESPIRATORY: Coarse crackles appreciated bilateral lower lobes. No end expiratory wheeze. GASTROINTESTINAL: Abdomen soft, non-tender, nondistended. Hypoactive bowel sounds MUSCULOSKELETAL: Extremities without significant peripheral edema. No obvious deformities. NEUROLOGICAL: Arousable on the ventilator and follows commands in all 4 extremities. Cranial nerves II through XII appear grossly intact. Strength is appears equal and symmetric. Nonfocal. Laboratory Laboratory Tests Test 04/16/17 13:15 04/16/17 13:25 Blood Gas Puncture Site RRA Blood Gas Patient Temperature 98.6 Blood Gas HCO3 32 Blood Gas Base Excess 7.7 Blood Gas Oxygen Saturation 87 Arterial Blood pH 7.42 Arterial Blood Partial Pressure CO2 50 Arterial Blood Partial Pressure O2 57 Arterial Blood Oxygen Content 17.0 Arterial Blood Carboxyhemoglobin 1.2 Arterial Blood Methemoglobin 0.7 Blood Gas Hemoglobin 14.0 Oxygen Delivery Device NASAL CANNULA Blood Gas Liter Flow 3 White Blood Count 11.8 Red Blood Count 2.71 Hemoglobin 9.1 Hematocrit 26.4 Mean Corpuscular Volume 97.6 Mean Corpuscular Hemoglobin 33.7 Mean Corpuscular Hemoglobin Concent 34.5 Red Cell Distribution Width 13.4 Platelet Count 291 Mean Platelet Volume 6.6 Neutrophils (%) (Auto) 83.7 Lymphocytes (%) (Auto) 5.7 Monocytes (%) (Auto) 10.3 Eosinophils (%) (Auto) 0.1 Basophils (%) (Auto) 0.2 Neutrophils # (Auto) 9.9 Lymphocytes # (Auto) 0.7 Monocytes # (Auto) 1.2 Eosinophils # (Auto) 0.0 Basophils # (Auto) 0.0 CBC Comment AUTO DIFF Differential Total Cells Counted 100 Neutrophils % (Manual) 60 Band Neutrophils % 27 Lymphocytes % 6 Monocytes % 6 Neutrophils # (Manual) 10.4 Metamyelocytes 1 Differential Comment FINAL DIFF MANUAL Platelet Estimate NORMAL Platelet Morphology Comment NORMAL Blood Urea Nitrogen 11 Creatinine 0.37 Random Glucose 128 Calcium Level 8.2 Magnesium Level 2.0 Sodium Level 141 Potassium Level 3.4 Chloride Level 104 Carbon Dioxide Level 31.9 Anion Gap 5 Estimat Glomerular Filtration Rate 175 Phosphorus Level 2.5 Total Creatine Kinase 33 Date/Time Source Procedure Growth Status 04/13/17 16:30 Blood Peripheral Aerobic Blood Culture - Preliminary NO GROWTH IN 3 DAYS Resulted 04/13/17 16:30 Blood Peripheral Anaerobic Blood Culture - Preliminary NO GROWTH IN 3 DAYS Resulted 04/13/17 23:48 Nasal Washing Influenza Types A,B Antigen (HARINDER) - Final NEGATIVE FOR FLU A AND B ANTIGEN.... Complete 04/13/17 19:20 Urine Random Urine Streptococcus pneumoniae Antigen (M - Final PRESUMPTIVE NEGATIVE FOR STREPTOCOCCU... Complete Result Diagram: 04/16/17 1325 04/16/17 1325 Imaging Last Impressions Chest X-Ray 04/16/17 0000 Signed Impressions: Service Date/Time: Sunday, April 16, 2017 13:05 - CONCLUSION: Significant change. The findings remain most characteristic of congestive heart failure. Ori Yoder MD Head CT 04/15/17 0000 Signed Impressions: Service Date/Time: Saturday, April 15, 2017 12:01 - CONCLUSION: No acute intracranial process Cornell Tierney MD Brain MRI 04/15/17 0000 Signed Impressions: Service Date/Time: Saturday, April 15, 2017 18:01 - CONCLUSION: No acute intracranial findings. Bilateral ethmoid and maxillary sinus disease. Air- fluid level in the right maxillary sinus suggests acute sinusitis. Bernardo Cook MD Lung Scan-V Nuclear Medicine 04/13/17 1630 Signed Impressions: Service Date/Time: Thursday, April 13, 2017 17:36 - CONCLUSION: Some air trapping in the right lung base. No significant perfusion defects are noted. No significant evidence of pulmonary embolism. Akash Long MD Septic Shock Reassessment Septic shock perfusion: reassessment completed Assessment and Plan Assessment and Plan Neuro/Psych: Acute toxic metabolic encephalopathy Seizure? Depression NOS Currently on propofol/fentanyl drips for sedation/analgesia while intubated Goal of RA SS -2 Daily sedation vacation MRI brain revealed bilateral ethmoid and maxillary sinusitis with acute component of right maxillary sinusitis CT brain revealed no acute intracranial findings EEG revealed no epileptiform activity Evaluated by Dr. Lew/neurology. Currently on levetiracetam 500 mg IV twice a day Acetaminophen 650 mg by tube every 6 hours when necessary fever Currently on sertraline 50 mg daily Written for as needed haloperidol 1 mg IV every 8 hours and lorazepam 0.5 mg every 6 hours when necessary agitation CV: Hypotension Currently on normal saline at 84 cc an hour 2-D echocardiogram revealed normal LV systolic function. Bilateral atrial enlargement. PAP 41 mmHg. Not requiring antihypertensives and/or vasopressors at the present time Currently on pravastatin 40 mg by mouth daily/hospital substitution for medication rosuvastatin 20 mg by mouth daily Resp: Acute hypoxic hypercapnic respiratory failure History of prior tobaccoism Possible community-acquired pneumonia [facility] 16/500/ Ventilator bundle Chest x-ray read by radiologist as possible volume overload. Check CT thorax without contrast. VQ scan low probability Albuterol/ipratropium aerosols every 6 hours with albuterol aerosols every 2 hours. Dyspnea Spontaneous breathing trials when clinically indicated GI: Hypoalbuminemia NGT placement Start Jevity 1.5 goal 45 cc an hour Lansoprazole 30 mg daily for GI prophylaxis Docusate sodium/senna 1 tablet twice a day for bowel regimen Check ammonia level : Carlos catheter will be placed for accurate I's and O's in a critically ill patient Endo: Hypothyroidism SSI with Novulin R with Accu-Cheks every 6 hours to maintain euglycemia/low regimen Continue levothyroxine 88 g daily. TSH 1.17 on admission Renal: Creatinine currently within normal limits Monitor urine output Accurate I's and O's Heme: Elevated PTT Leukocytosis Normocytic anemia ID: Possible community-acquired pneumonia Right maxillary sinusitis Currently on vancomycin, aztreonam and metronidazole 04/13 blood cultures 2, urine Legionella pneumococcal antigen and influenza and urine cultures all no growth Check sputum culture today MSK: PT evaluate and treat FEN: Hypokalemia Replace electrolytes per ICU left leg protocol. Access - Left IJ CVL day 1 placed 08/14 Prophylaxis - GI - lansoprazole - DVT - SCD/enoxaparin Critical Care: The total critical care time was 35 minutes. Time to perform other separately billable procedures was not included in the critical care time. Code Status Full code Discussed Condition With Patient. Care plan discussed and all questions answered. Misael Morales MD Apr 16, 2017 15:48
[2017-04-16] MEDS ORDERED: MIDAZOLAM 100 MG/100 ML INJ 100 ML IV PRN (16:15)
[2017-04-16] MEDS ORDERED: GLUCAGON 1 MG/ML VIAL OTHER PRN (16:15)
[2017-04-16] MEDS ORDERED: Vancomycin Consult Pharmacy 1 EA OTHER SCH (16:15)
[2017-04-16] MEDS ORDERED: SODIUM CHLORIDE 0.9% FLUSH 10 ML FLUSH IV FLUSH PRN (16:15)
[2017-04-16] MEDS ORDERED: DEXTROSE 50% IN WATER 50 ML VIAL(D50) IV PUSH PRN (16:15)
[2017-04-16] MEDS ORDERED: ACETAMINOPHEN 650 MG/20.3 ML UDC DOBHOFF PRN (16:15)
--- NOTE | 2017-04-16 16:26 | RADRPT ---
EXAM DATE/TIME: 04/16/2017 15:59 [facility] COMPARISON: CHEST SINGLE AP, April 16, 2017, 13:05. INDICATIONS : Intubation/Central line placement. MEDICAL HISTORY : Osteoarthritis. Hypertension. Hypothyroidism SURGICAL HISTORY : Hysterectomy. ENCOUNTER: Subsequent ACUITY: 1 day PAIN SCORE: Non-responsive. LOCATION: Bilateral chest FINDINGS: Bibasilar infiltrates are again seen, both sides mildly worse in the interim. Small, bilateral pleura l effusions would not be surprising. There is no pneumothorax. Patient is now intubated. The endotracheal tube tip is approximately 1.5 cm above the hero. There i s a left internal jugular central venous catheter with tip at the atriocaval junction. Again, no pneu mothorax. CONCLUSION: 1. Worsening bibasilar consolidation. 2. Endotracheal tube tip is 1.5 cm above the hero. 3. Right IJ central venous catheter has its tip at the atriocaval junction. No pneumothorax. Cornell Anna MD on April 16, 2017 at 16:22 Board Certified Radiologist. This report was verified electronically.
[2017-04-16] MEDS: fentaNYL DRIP 250 ML IV PRN (16:36)
[2017-04-16] MEDS: INSULIN NovoLIN REGULAR SUPPLEMENTAL SCALE SQ SCH ×2 (18:00→23:27)
[2017-04-16] MEDS: PROPOFOL 1000 MG/100 ML INJ 100 ML IV PRN (18:15)
[2017-04-16] MEDS: ENOXAPARIN SODIUM 40 MG/0.4 ML SYRINGE SQ SCH (18:16)
[2017-04-16] MEDS: metroNIDAZOLE 500 MG TAB PO SCH ×2 (18:16→23:24)
[2017-04-16] MEDS: NS + KCL 20 MEQ INJ 1,000 ML IV SCH (18:16)
[2017-04-16] MEDS: RESP: BUDESONIDE 0.5 MG/2 ML NEB NEB SCH (19:51)
--- NOTE | 2017-04-16 21:17 | RADRPT ---
EXAM DATE/TIME: 04/16/2017 21:02 [facility] COMPARISON: CHEST SINGLE AP, April 16, 2017, 15:59. INDICATIONS : Tachypnea. RADIATION DOSE: 4.2 CTDIvol (mGy) MEDICAL HISTORY : Hypertension. Hypothyroidism. Osteoarthritis. SURGICAL HISTORY : Hysterectomy. ENCOUNTER: Initial ACUITY: 1 day PAIN SCALE: Non-responsive LOCATION: chest TECHNIQUE: Volumetric scanning of the chest was performed. Using automated exposure control and adjustment of t he mA and/or kV according to patient size, radiation dose was kept as low as reasonably achievable to obtain optimal diagnostic quality images. DICOM format image data is available electronically for r eview and comparison. Follow-up recommendations for detected pulmonary nodules are based at a minimum on nodule size and pa tient risk factors according to Fleischner Society Guidelines. FINDINGS: Small bilateral pleural effusions are present. Large areas of very dense consolidation are seen of terri th lower lobes. There is more groundglass type consolidation with air bronchograms in the right middl e lobe and to a much lesser extent in the lingular division of the left upper lobe. There is no pneum othorax. Heart size within normal limits. Endotracheal tube tip is only about 9 mm above the hero. There is a new nasogastric tube, coiled in the stomach. Left internal jugular central venous catheter tip is a t the atriocaval junction. CONCLUSION: Small effusions and basilar predominant pneumonia on both sides. Endotracheal tube tip is less than a centimeter above the hero. Cornell Anna MD on April 16, 2017 at 21:11 Board Certified Radiologist. This report was verified electronically.
[2017-04-16] MEDS: CHLORHEXIDINE 0.12% (ORAL KIT) 15 ML CUP MT SCH (21:33)
[2017-04-16] MEDS: ARTIFICIAL TEARS OPTH SOLN 15 ML BTL EACH EYE SCH (22:37)
[2017-04-17] VITALS (20 sets, daily range): BP systolic 86–141; BP diastolic 50–68; PULSE 58–130; RESP 12–14; TEMP 99–100.9; O2SAT 92–99
[2017-04-17] MEDS: AZTREONAM INJ 2,000 MG in SODIUM CHLORIDE 0.9% INJ 100 ML IV SCH ×3 (01:26→18:20)
[2017-04-17] MEDS: CHLORHEXIDINE GLUCONATE 2 % 1 PACK (2 CLOTHS)(taper/protocol) TOPICAL SCH (04:00)
[2017-04-17 04:23] LABS: AUTOMATED NEUTROPHIL # 9.6 TH/MM3 (1.8-7.7); BASOPHIL % 0.3 % (0.0-2.0); EOSINOPHIL # 0.1 TH/MM3 (0-0.4); HEMATOCRIT 24.4 % (35.0-46.0); HEMOGLOBIN 8.4 GM/DL (11.6-15.3); LYMPH % 8.4 % (9.0-44.0); MEAN CELL VOLUME 97.6 FL (80.0-100.0); MEAN CORPUSCULAR HEMOGLOBIN 33.4 PG (27.0-34.0); MEAN CORPUSCULAR HGB CONC 34.2 % (32.0-36.0); MEAN PLATELET VOLUME 6.1 FL (7.0-11.0); MONO % 7.6 % (0.0-8.0); MONOCYTE # 0.9 TH/MM3 (0-0.9); NEUT % 82.7 % (16.0-70.0); PLATELET COUNT 268 TH/MM3 (150-450); RED CELL DISTRIBUTION WIDTH 13.7 % (11.6-17.2); WHITE BLOOD COUNT 11.6 TH/MM3 (4.0-11.0)
[2017-04-17 04:36] LABS: INTERNATIONAL NORMALIZED RATIO 1.4 RATIO; PROTHROMBIN TIME - PATIENT 13.7 SEC (9.8-11.6)
[2017-04-17] MEDS: PHENYLEPHRINE INJ 160 MG in DEXTROSE 5% IN WATE 500 ML INJ 484 ML IV PRN ×2 (04:38)
[2017-04-17 04:53] LABS: ALBUMIN 1.7 GM/DL (3.4-5.0); BICARBONATE 31.3 MEQ/L (21.0-32.0); CALCIUM 7.9 MG/DL (8.5-10.1); CREATININE 0.32 MG/DL (0.50-1.00); MAGNESIUM 1.8 MG/DL (1.5-2.5)
[2017-04-17 04:54] LABS: DIRECT BILIRUBIN ADULT 0.1 MG/DL (0.0-0.2); PHOSPHORUS 2.4 MG/DL (2.5-4.9)
[2017-04-17 04:56] LABS: INDIRECT BILIRUBIN 0.2 MG/DL (0.0-0.8); TOTAL BILIRUBIN ADULT 0.3 MG/DL (0.2-1.0); TOTAL PROTEIN 4.9 GM/DL (6.4-8.2)
[2017-04-17 05:17] LABS: BANDS 14 % (0-6); BLASTS 1 % (0-0); LYMPHOCYTES 4 % (9-44); METAMYELOCYTES 5 % (0-1); MONOCYTES 5 % (0-8); NEUTROPHIL # MANUAL DIFF 10.3 TH/MM3 (1.8-7.7); POLYS (SEG NEUTROPHILS) 70 % (16-70)
[2017-04-17] MEDS: metroNIDAZOLE 500 MG TAB PO SCH ×4 (05:19→23:56)
[2017-04-17] MEDS: ARTIFICIAL TEARS OPTH SOLN 15 ML BTL EACH EYE SCH ×3 (05:19→20:13)
[2017-04-17] MEDS: LEVOTHYROXINE SODIUM 88 MCG TAB PO SCH (05:19)
[2017-04-17] MEDS: INSULIN NovoLIN REGULAR SUPPLEMENTAL SCALE SQ SCH ×4 (06:00→23:56)
[2017-04-17] MEDS: fentaNYL DRIP 250 ML IV PRN ×2 (06:03→22:51)
[2017-04-17] MEDS: DOCUSATE SODIUM 50 MG/SENNA 8.6 MG TAB PO SCH ×2 (08:02→20:12)
[2017-04-17] MEDS: ATORVASTATIN 40 MG TAB PO SCH (08:02)
[2017-04-17] MEDS: levETIRAcetam 500 MG TAB PO SCH (08:02)
[2017-04-17] MEDS: LANSOPRAZOLE SOLUTAB 30 MG TAB NG SCH (08:02)
[2017-04-17] MEDS: SERTRALINE HCL 50 MG TAB PO SCH (08:02)
[2017-04-17] MEDS: RESP: ALBUTEROL 2.5 MG/IPRATROPIUM 0.5 MG NEB (SCH) INH ×4 (08:03→20:03)
[2017-04-17] MEDS: RESP: BUDESONIDE 0.5 MG/2 ML NEB NEB SCH ×2 (08:03→20:03)
--- NOTE | 2017-04-17 08:06 | HHI.PR ---
Subjective Remarks Patient was transferred to ICU yesterday intubated for airway protection. CT chest showed bibasilar pneumonia with small effusions. On Diprivan and Fentnayl drip for sedation. Also on Neosyn 40 mics. T:100.2 Objective Vital Signs Vital Signs Date Time Temp Pulse Resp B/P (MAP) Pulse Ox O2 Delivery O2 Flow Rate FiO2 04/17/17 06:30 134 118/57 04/17/17 06:00 130 04/17/17 06:00 130 91/50 (64) 04/17/17 04:38 85 79/44 04/17/17 04:10 92 60 04/17/17 04:00 60 04/17/17 04:00 100.2 85 12 86/51 (63) 93 04/17/17 04:00 85 04/17/17 03:51 89 111/58 (75) 04/17/17 02:13 99 60 04/17/17 02:00 63 04/17/17 00:00 63 04/17/17 00:00 63 12 112/57 (75) 99 04/16/17 23:36 98 60 04/16/17 22:00 72 04/16/17 22:00 98.8 72 12 100/58 (72) 97 04/16/17 20:55 99 100 04/16/17 20:00 99.3 82 12 91/54 (66) 93 04/16/17 20:00 60 04/16/17 20:00 82 04/16/17 19:56 99 Ventilator 60 04/16/17 19:52 94 60 04/16/17 18:00 83 04/16/17 16:00 103 04/16/17 16:00 99.8 103 30 93/52 (66) 100 04/16/17 15:15 100 100 04/16/17 15:00 109 04/16/17 12:00 99.9 113 21 92/44 (60) 93 04/16/17 12:00 90 Nasal Cannula 3.00 04/16/17 10:12 97 Nasal Cannula 4.00 04/16/17 10:00 93 Nasal Cannula 4.00 I/O 04/16/17 04/16/17 04/16/17 04/17/17 04/17/17 04/17/17 07:00 15:00 23:00 07:00 15:00 23:00 Intake Total 0 ml 100 ml 791.1 ml Output Total 625 ml Balance 0 ml 100 ml 166.1 ml Intake Oral 0 ml 0 ml IV Total 100 ml 483.1 ml Tube Feeding 108 ml Other 200 ml Output Urine Total 625 ml # Voids 0 # Bowel Movements 0 1 Result Diagram: 04/17/1741004/17/171 Other Results Last Impressions Chest X-Ray 04/16/17 0000 Signed Impressions: Service Date/Time: Sunday, April 16, 2017 15:59 - CONCLUSION: 1. Worsening bibasilar consolidation. 2. Endotracheal tube tip is 1.5 cm above the hero. 3. Right IJ central venous catheter has its tip at the atriocaval junction. No pneumothorax. Cornell Anna MD Chest CT 04/16/17 0000 Signed Impressions: Service Date/Time: Sunday, April 16, 2017 21:02 - CONCLUSION: Small effusions and basilar predominant pneumonia on both sides. Endotracheal tube tip is less than a centimeter above the hero. Cornell Anna MD Head CT 04/15/17 0000 Signed Impressions: Service Date/Time: Saturday, April 15, 2017 12:01 - CONCLUSION: No acute intracranial process Cornell Tierney MD Brain MRI 04/15/17 0000 Signed Impressions: Service Date/Time: Saturday, April 15, 2017 18:01 - CONCLUSION: No acute intracranial findings. Bilateral ethmoid and maxillary sinus disease. Air- fluid level in the right maxillary sinus suggests acute sinusitis. Bernardo Cook MD Lung Scan- Nuclear Medicine 04/13/17 1630 Signed Impressions: Service Date/Time: Thursday, April 13, 2017 17:36 - CONCLUSION: Some air trapping in the right lung base. No significant perfusion defects are noted. No significant evidence of pulmonary embolism. Akash Long MD Objective Remarks GENERAL: Patient is 66 yo intubated and sedated SKIN: Warm and dry. HEAD: Normocephalic. EYES: No scleral icterus. No injection or drainage. NECK: Supple, trachea midline. No JVD or lymphadenopathy. Orally intubated CARDIOVASCULAR: Regular rate and rhythm without murmurs, gallops, or rubs. RESPIRATORY: Breath sounds equal bilaterally. No accessory muscle use. GASTROINTESTINAL: Abdomen soft, non-tender, nondistended. MUSCULOSKELETAL: No cyanosis, or edema. BACK: Nontender without obvious deformity. No CVA tenderness. Neuro: Intubated A/P Assessment and Plan 1)VDRF 2)Pneumonia 3)Encephalopathy 4)Sz 5)depression 6)Hypothyroidism PLAN: Continued with vent support keep sat >92% Bronchodilators, ICU vent bundle. CT chest showed bibasilar pneumonia with small effusions. Continue with abx (Aztreonam, Vanco, Flagyl) follow up on BC and sputum cx from 04/16: NGTD Strep pneumonia, Legionella urinary Ag and Influenza all negative. Monitor neuro status- On keppra. Neuro is following Continue with IVF. Wean off Neosyn keep MAP>65mmHg GI/DVT prophylaxis Continue treatment plan. Claudette Bradford MD Apr 17, 2017 08:06
--- NOTE | 2017-04-17 08:29 | MG ---
cc: NADIRA LEW MD Lab No: Date: 04/17/2017 Age: Sex: F Race: DATE OF [address] Awan. MEDICAL HISTORY Hypothyroidism, depression, alcohol and caffeine use, presented for cough, fever and change in mental status. MEDICATIONS Levofloxacin, aztreonam, Lipitor and Zoloft. DESCRIPTION The background activity is 8-9 Hz alpha. Located posteriorly. There is excessive eye blink movement and muscle artifact during the recording. Hyperventilation was omitted. Photic stimulation did not elicit driving response. During the recording there was transition to sleep. There were no electrographic seizures or epileptiform discharges noted during the recording. INTERPRETATION This is an awake and drowsy EEG. There were no electrographic seizures or epileptiform discharges noted during the recording. There is excessive muscle and eye blink artifact. Clinical correlation is recommended. Nadira Lew MD [facility] /12:09 AM /8:19 AM [facility]
[2017-04-17] MEDS: VANCOMYCIN 1,000 MG/NS 250 ML IV SCH ×2 (11:06)
[2017-04-17] MEDS: SODIUM CHLORIDE 0.9% FLUSH 10 ML FLUSH IV FLUSH SCH ×3 (11:06→20:12)
[2017-04-17] MEDS: CHLORHEXIDINE 0.12% (ORAL KIT) 15 ML CUP MT SCH ×2 (11:06→20:13)
[2017-04-17] MEDS ORDERED: ALBUMIN 5% INJ 500 ML IV ONE (13:15)
[2017-04-17] MEDS ORDERED: POTASSIUM CHLORIDE 20 MEQ PWD PACKET PO ONE (13:15)
[2017-04-17 13:17] LABS: BACTERIA, URINE RARE /hpf; BILIRUBIN, URINE NEG (NEG); BLOOD, URINE NEG (NEG); GLUCOSE,URINE NEG (NEG); KETONE, URINE NEG (NEG); MUCUS URINE FEW /lpf (OCC); NITRITE,URINE NEG (NEG); SQUAMOUS EPITHELIAL CELL URINE <1 /hpf (0-5); TRANSITIONAL EPI CELLS, URINE <1 /hpf; URINE COLOR YELLOW (YELLW/STRAW); URINE LEUKOCYTE ESTERASE TRACE (NEG)
--- NOTE | 2017-04-17 13:17 | HHI.CCPN ---
Subjective Remarks/Hospital Course This is a 66-year-old female. Data admission 04/13/2017. Date of consultation 04/16/2017. Past medical history includes dyslipidemia, hypothyroidism and depression.visual illness symptoms onset occurred at the beginning of April. She seen at the [facility] for febrile illness. She received azithromycin, Tessalon Perles and ondansetron. He came to have fevers chills. Upon presentation to the ED on 04/13 patient's studies. Hypoxic and placed on nonrebreather mask. CULTURES were negative. The hospitalist and patient had a "seizure activity". She has intermittent confusion receiving levofloxacin. She has been seen in consultation by neurology. She is currently on levetiracetam from neurology standpoint. Workup including EEG and MRI brain essentially within normal limits. Today, pulmonology evaluated patient to be With rapid shallow breathing. Patient has received lorazepam and haloperidol within the past 24 hours due to "agitation". No seizure activity noted. Upon arrival to the ICU, patient was reread was in the 40s. Elective intubation. Central line placement. Objective Vital Signs Date Time Temp Pulse Resp B/P (MAP) Pulse Ox O2 Delivery O2 Flow Rate FiO2 04/17/17 11:38 99 50 04/17/17 06:30 134 118/57 04/17/17 04:00 100.2 12 04/16/17 19:56 Ventilator 04/16/17 12:00 3.00 Intake and Output 04/17/17 04/17/17 04/18/17 08:00 16:00 00:00 Intake Total 691.1 ml Output Total 625 ml Balance 66.1 ml Result Diagram: 04/17/17 0411 04/17/17 0411 Other Results Microbiology Date/Time Source Procedure Growth Status 04/16/17 19:20 Blood Peripheral Aerobic Blood Culture - Preliminary NO GROWTH IN 1 DAY Resulted 04/16/17 19:20 Blood Peripheral Anaerobic Blood Culture - Preliminary NO GROWTH IN 1 DAY Resulted 04/16/17 18:40 Sputum Endotracheal Gram Stain - Final Resulted 04/16/17 18:40 Sputum Endotracheal Sputum Culture - Preliminary IMMATURE GROWTH - REINCUBATE Resulted 04/13/17 19:20 Urine Random Urine Streptococcus pneumoniae Antigen (M - Final PRESUMPTIVE NEGATIVE FOR STREPTOCOCCU... Complete Imaging Last Impressions Chest X-Ray 04/16/17 0000 Signed Impressions: Service Date/Time: Sunday, April 16, 2017 15:59 - CONCLUSION: 1. Worsening bibasilar consolidation. 2. Endotracheal tube tip is 1.5 cm above the hero. 3. Right IJ central venous catheter has its tip at the atriocaval junction. No pneumothorax. Cornell Anna MD Chest CT 04/16/17 0000 Signed Impressions: Service Date/Time: Sunday, April 16, 2017 21:02 - CONCLUSION: Small effusions and basilar predominant pneumonia on both sides. Endotracheal tube tip is less than a centimeter above the hero. Cornell Anna MD Head CT 04/15/17 0000 Signed Impressions: Service Date/Time: Saturday, April 15, 2017 12:01 - CONCLUSION: No acute intracranial process Cornell Tierney MD Brain MRI 04/15/17 0000 Signed Impressions: Service Date/Time: Saturday, April 15, 2017 18:01 - CONCLUSION: No acute intracranial findings. Bilateral ethmoid and maxillary sinus disease. Air- fluid level in the right maxillary sinus suggests acute sinusitis. Bernardo Cook MD Lung Scan- Nuclear Medicine 04/13/17 1630 Signed Impressions: Service Date/Time: Thursday, April 13, 2017 17:36 - CONCLUSION: Some air trapping in the right lung base. No significant perfusion defects are noted. No significant evidence of pulmonary embolism. Akash Long MD Objective Remarks GENERAL: 66-year-old female critically ill currently orotracheally intubated SKIN: Warm and dry. Well perfused HEAD: Atraumatic. Normocephalic. EYES: Pupils equal and round about 3 millimeters bilaterally and reactive. No scleral icterus. No injection or drainage. ENT: No nasal bleeding or discharge. Mucous membranes pink and moist. NECK: Trachea midline. No JVD. Right IJ is clean dry and intact CARDIOVASCULAR: Tachycardic, RR. S1, S2 no S4. Without murmur RESPIRATORY: Coarse crackles appreciated bilateral lower lobes. No end expiratory wheeze. GASTROINTESTINAL: Abdomen soft, non-tender, nondistended. Hypoactive bowel sounds MUSCULOSKELETAL: Extremities without significant peripheral edema. No obvious deformities. NEUROLOGICAL: Arousable on the ventilator and follows commands in all 4 extremities. Cranial nerves II through XII appear grossly intact. Strength is appears equal and symmetric. Nonfocal. Procedures none Urinary Catheter: Yes Assessment to: Continue Carlos insert reason: Prolonged Immobilization Vascular Central Line Catheter: Yes Assessment to: Continue Date of Insertion: Apr 16, 2017 Line: Central Venous Catheter Side: Right Location: Internal, Jugular A/P Assessment and Plan Neuro/Psych: Acute toxic metabolic encephalopathy Seizure? Depression NOS Currently on propofol at 15 mcg/kg per minute/fentanyl drips at 50 g an hour for sedation/analgesia while intubated Goal of RA SS -2 Daily sedation vacation MRI brain revealed bilateral ethmoid and maxillary sinusitis with acute component of right maxillary sinusitis CT brain revealed no acute intracranial findings EEG revealed no epileptiform activity Evaluated by Dr. Lew/neurology. Currently on levetiracetam 500 mg ng twice a day Acetaminophen 650 mg by tube every 6 hours when necessary fever Currently on sertraline 50 mg daily Written for as needed haloperidol 1 mg IV every 8 hours and lorazepam 0.5 mg every 6 hours when necessary agitation CV: Hypotension Sinus tachycardia Severe sepsis Currently on normal saline at 84 cc an hour 2 L total Initiated on phenylephrine drip at 60 mcg/m to maintain mean material pressure greater than equal to 65 2-D echocardiogram revealed normal LV systolic function. Bilateral atrial enlargement. PAP 41 mmHg. Not requiring antihypertensives and/or vasopressors at the present time Currently on pravastatin 40 mg by mouth daily/hospital substitution for medication rosuvastatin 20 mg by mouth daily Check CVP Resp: Acute hypoxic hypercapnic respiratory failure History of prior tobaccoism Possible community-acquired pneumonia [facility] 14/500/1.3/40 Ventilator bundle Albuterol/ipratropium aerosols every 6 hours with albuterol aerosols every 2 hours. Dyspnea Spontaneous breathing trials when clinically indicated Chest x-ray read by radiologist as possible volume overload. Check CT thorax without contrast 04/16 revealed bilateral lower lobe infiltrates. ET tube 1 cm above the hero. VQ scan low probability GI: Hypoalbuminemia NGT placement Continue Jevity 1.5 goal 45 cc an hour Lansoprazole 30 mg daily for GI prophylaxis Docusate sodium/senna 1 tablet twice a day for bowel regimen Check ammonia level - 22 Added metoclopramide 5 mg 3 times a day for bowel motility : Carlos catheter will be placed for accurate I's and O's in a critically ill patient Endo: Hypothyroidism SSI with Novulin R with Accu-Cheks every 6 hours to maintain euglycemia/low regimen Continue levothyroxine 88 g daily. TSH 1.17 on admission Renal: Creatinine currently within normal limits Monitor urine output Accurate I's and O's Heme: Elevated PTT Leukocytosis Normocytic anemia Monitor CBC daily. Follow trends ID: Possible community-acquired pneumonia Right maxillary sinusitis Currently on vancomycin, aztreonam and metronidazole 04/13 blood cultures 2, urine Legionella pneumococcal antigen and influenza and urine cultures all no growth Check sputum culture today MSK: PT evaluate and treat FEN: Hypokalemia Replace electrolytes per ICU electrolyte protocol. Access - Left IJ CVL day 2 placed 04/16 Prophylaxis - GI - lansoprazole - DVT - SCD/enoxaparin Critical Care: The total critical care time was 35 minutes. Time to perform other separately billable procedures was not included in the critical care time. Misael Morales MD Apr 17, 2017 13:17
[2017-04-17] MEDS: METOCLOPRAMIDE HCL 10 MG/2 ML VIAL IV PUSH SCH ×2 (13:41→20:12)
[2017-04-17] MEDS: NS + KCL 20 MEQ INJ 1,000 ML IV SCH (13:51)
[2017-04-17] MEDS ORDERED: POTASSIUM PHOSPHATE INJ 30 MMOL in SODIUM CHLOR 0.9% 250 ML INJ 250 ML IV ONE (14:00)
[2017-04-17] MEDS: ENOXAPARIN SODIUM 40 MG/0.4 ML SYRINGE SQ SCH (18:20)
[2017-04-17 19:36] LABS: PHOSPHORUS 2.9 MG/DL (2.5-4.9)
[2017-04-17] MEDS: PROPOFOL 1000 MG/100 ML INJ 100 ML IV PRN ×2 (19:40)
[2017-04-17] MEDS: SODIUM CHLORIDE 0.9% FLUSH 10 ML FLUSH IV FLUSH PRN (20:12)
[2017-04-17] MEDS: levETIRAcetam 500 MG/5 ML UDC NG SCH (20:12)
[2017-04-17] MEDS: POTASSIUM CHLOR 20 MEQ PREMIX 100 ML IV PRN ×2 (20:50→22:51)
[2017-04-18] VITALS (60 sets, daily range): BP systolic 74–145; BP diastolic 44–68; PULSE 52–140; RESP 10–25; TEMP 98.6–99; O2SAT 87–100
[2017-04-18] MEDS: AZTREONAM INJ 2,000 MG in SODIUM CHLORIDE 0.9% INJ 100 ML IV SCH ×2 (01:32→21:03)
[2017-04-18 03:44] LABS: HEMATOCRIT 24.6 % (35.0-46.0); HEMOGLOBIN 8.5 GM/DL (11.6-15.3); MEAN CORPUSCULAR HEMOGLOBIN 33.4 PG (27.0-34.0); MEAN CORPUSCULAR HGB CONC 34.4 % (32.0-36.0); MEAN PLATELET VOLUME 6.3 FL (7.0-11.0); PLATELET COUNT 331 TH/MM3 (150-450); RED BLOOD COUNT 2.54 MIL/MM3 (4.00-5.30); RED CELL DISTRIBUTION WIDTH 13.7 % (11.6-17.2); WHITE BLOOD COUNT 12.2 TH/MM3 (4.0-11.0)
[2017-04-18 03:56] LABS: BICARBONATE 29.3 MEQ/L (21.0-32.0); CALCIUM 7.9 MG/DL (8.5-10.1); CREATININE 0.27 MG/DL (0.50-1.00); MAGNESIUM 1.9 MG/DL (1.5-2.5); PHOSPHORUS 2.6 MG/DL (2.5-4.9)
[2017-04-18] MEDS: INSULIN NovoLIN REGULAR SUPPLEMENTAL SCALE SQ SCH ×3 (04:28→18:00)
--- NOTE | 2017-04-18 04:44 | RADRPT ---
EXAM DATE/TIME: 04/18/2017 03:02 [place] COMPARISON: CHEST SINGLE AP, April 16, 2017, 15:59. INDICATIONS : Shortness of breath, possible pulmonary disease. MEDICAL HISTORY : Osteoarthritis. Hypertension Hypothyroidism. SURGICAL HISTORY : Hysterectomy. ENCOUNTER: Subsequent ACUITY: 3 days PAIN SCORE: Non-responsive. LOCATION: Bilateral chest FINDINGS: ET tube, NG tube, and left internal jugular central line are well placed. The heart size is normal. T here is hazy density seen at the mid and lower lungs with silhouetting of the hemidiaphragms bilatera lly. CONCLUSION: Bilateral areas of consolidation or atelectasis in the mid and lower lungs. Some degree of effusion c annot be excluded. Cornell Melendez MD on April 18, 2017 at 4:40 Board Certified Radiologist. This report was verified electronically.
[2017-04-18] MEDS: METOCLOPRAMIDE HCL 10 MG/2 ML VIAL IV PUSH SCH ×3 (05:26→21:01)
[2017-04-18] MEDS: metroNIDAZOLE 500 MG TAB PO SCH ×3 (05:26→18:07)
[2017-04-18] MEDS: LEVOTHYROXINE SODIUM 88 MCG TAB PO SCH (05:26)
[2017-04-18] MEDS: CHLORHEXIDINE GLUCONATE 2 % 1 PACK (2 CLOTHS)(taper/protocol) TOPICAL SCH (05:27)
[2017-04-18] MEDS: ARTIFICIAL TEARS OPTH SOLN 15 ML BTL EACH EYE SCH ×3 (05:27→21:10)
[2017-04-18] MEDS: VANCOMYCIN 1,000 MG/NS 250 ML IV SCH ×2 (05:27)
[2017-04-18] MEDS: PROPOFOL 1000 MG/100 ML INJ 100 ML IV PRN ×2 (05:43→08:05)
[2017-04-18] MEDS: RESP: ALBUTEROL 2.5 MG/IPRATROPIUM 0.5 MG NEB (SCH) INH ×4 (07:38→19:43)
[2017-04-18] MEDS: RESP: BUDESONIDE 0.5 MG/2 ML NEB NEB SCH ×2 (07:38→19:43)
[2017-04-18] MEDS: CHLORHEXIDINE 0.12% (ORAL KIT) 15 ML CUP MT SCH ×2 (08:05→21:02)
[2017-04-18] MEDS: SODIUM CHLORIDE 0.9% FLUSH 10 ML FLUSH IV FLUSH SCH ×3 (08:05→21:02)
[2017-04-18] MEDS: DOCUSATE SODIUM 50 MG/SENNA 8.6 MG TAB PO SCH ×2 (08:06→21:02)
[2017-04-18] MEDS: ATORVASTATIN 40 MG TAB PO SCH (08:06)
[2017-04-18] MEDS: levETIRAcetam 500 MG/5 ML UDC NG SCH ×2 (08:06→21:01)
[2017-04-18] MEDS: SERTRALINE HCL 50 MG TAB PO SCH (08:06)
[2017-04-18] MEDS: LANSOPRAZOLE SOLUTAB 30 MG TAB NG SCH (08:09)
[2017-04-18] MEDS ORDERED: POTASSIUM CHLORIDE 25 MEQ EFFERVESCENT TAB PO ONE (09:15)
[2017-04-18] MEDS ORDERED: FUROSEMIDE 40 MG/4 ML VIAL IV PUSH ONE (09:15)
--- NOTE | 2017-04-18 09:20 | HHI.CCPN ---
Subjective Remarks/Hospital Course This is a 66-year-old female. Data admission 04/13/2017. Date of consultation 04/16/2017. Past medical history includes dyslipidemia, hypothyroidism and depression.visual illness symptoms onset occurred at the beginning of April. She seen at the [facility] for febrile illness. She received azithromycin, Tessalon Perles and ondansetron. She came to have fevers chills. Upon presentation to the ED on 04/13 patient's studies. Hypoxic and placed on nonrebreather mask. CULTURES were negative. The hospitalist and patient had a "seizure activity". She has intermittent confusion receiving levofloxacin. She has been seen in consultation by neurology. She is currently on levetiracetam from neurology standpoint. Workup including EEG and MRI brain essentially within normal limits. Today, pulmonology evaluated patient to be With rapid shallow breathing. Patient has received lorazepam and haloperidol within the past 24 hours due to "agitation". No seizure activity noted. Upon arrival to the ICU, patient was reread was in the 40s. Elective intubation. Central line placement. 04/18/17: Remains intubated. All sedation except follows commands. Chest x-ray is essentially unchanged. Cultures remain negative. Tomas-Synephrine on hold. Hemodynamically remaining stable Objective Vital Signs Date Time Temp Pulse Resp B/P (MAP) Pulse Ox O2 Delivery O2 Flow Rate FiO2 04/18/17 09:00 40 04/18/17 07:39 94 04/18/17 06:00 58 101/59 (73) 04/18/17 04:00 98.9 14 04/16/17 19:56 Ventilator 04/16/17 12:00 3.00 Intake and Output 04/18/17 04/18/17 04/19/17 08:00 16:00 00:00 Intake Total 1722 ml Output Total 650 ml Balance 1072 ml Result Diagram: 04/18/17 0323 04/18/17 0323 Imaging Last Impressions Chest X-Ray 04/16/17 0000 Signed Impressions: Service Date/Time: Sunday, April 16, 2017 15:59 - CONCLUSION: 1. Worsening bibasilar consolidation. 2. Endotracheal tube tip is 1.5 cm above the hero. 3. Right IJ central venous catheter has its tip at the atriocaval junction. No pneumothorax. oCrnell Anna MD Chest CT 04/16/17 0000 Signed Impressions: Service Date/Time: Sunday, April 16, 2017 21:02 - CONCLUSION: Small effusions and basilar predominant pneumonia on both sides. Endotracheal tube tip is less than a centimeter above the hero. Cornell Anna MD Head CT 04/15/17 0000 Signed Impressions: Service Date/Time: Saturday, April 15, 2017 12:01 - CONCLUSION: No acute intracranial process Cornell Tierney MD Brain MRI 04/15/17 0000 Signed Impressions: Service Date/Time: Saturday, April 15, 2017 18:01 - CONCLUSION: No acute intracranial findings. Bilateral ethmoid and maxillary sinus disease. Air- fluid level in the right maxillary sinus suggests acute sinusitis. Bernardo Cook MD Lung Scan- Nuclear Medicine 04/13/17 1630 Signed Impressions: Service Date/Time: Thursday, April 13, 2017 17:36 - CONCLUSION: Some air trapping in the right lung base. No significant perfusion defects are noted. No significant evidence of pulmonary embolism. Akash Long MD Objective Remarks GENERAL: 66-year-old female critically ill currently orotracheally intubated SKIN: Warm and dry. Well perfused HEAD: Atraumatic. Normocephalic. EYES: Pupils equal and round about 3 millimeters bilaterally and reactive. No scleral icterus. No injection or drainage. ENT: No nasal bleeding or discharge. Mucous membranes pink and moist. NECK: Trachea midline. No JVD. Right IJ is clean dry and intact CARDIOVASCULAR: RR. S1, S2 no S4. Without murmur RESPIRATORY: Coarse crackles appreciated bilateral lower lobes. No end expiratory wheeze. GASTROINTESTINAL: Abdomen soft, non-tender, nondistended. Hypoactive bowel sounds MUSCULOSKELETAL: Extremities without significant peripheral edema. No obvious deformities. NEUROLOGICAL: Arousable on the ventilator and follows commands in all 4 extremities. Strength is appears equal and symmetric. Nonfocal. Procedures none Date of Insertion: Apr 16, 2017 Line: Central Venous Catheter Side: Right Location: Internal, Jugular A/P Assessment and Plan Neuro/Psych: Acute toxic metabolic encephalopathy Seizure? Depression NOS Currently on sedation medication Goal of RA SS -2 Daily sedation vacation MRI brain revealed bilateral ethmoid and maxillary sinusitis with acute component of right maxillary sinusitis CT brain revealed no acute intracranial findings EEG revealed no epileptiform activity Evaluated by Dr. Lew/neurology. Currently on levetiracetam 500 mg ng twice a day Acetaminophen 650 mg by tube every 6 hours when necessary fever Currently on sertraline 50 mg daily Written for as needed haloperidol 1 mg IV every 8 hours and lorazepam 0.5 mg every 6 hours when necessary agitation CV: Hypotension Sinus tachycardia Severe sepsis IV fluids discontinued. Give IV Lasix 40 mg 1 Initiated on phenylephrine drip at 60 mcg/m to maintain mean material pressure greater than equal to 65-curretnly on hold 2-D echocardiogram revealed normal LV systolic function. Bilateral atrial enlargement. PAP 41 mmHg. Not requiring antihypertensives and/or vasopressors at the present time Currently on pravastatin 40 mg by mouth daily/hospital substitution for medication rosuvastatin 20 mg by mouth daily Resp: Acute hypoxic hypercapnic respiratory failure History of prior tobaccoism Community-acquired pneumonia [facility] /1.06/07/39 Ventilator bundle Albuterol/ipratropium aerosols every 6 hours with albuterol aerosols every 2 hours. Dyspnea Spontaneous breathing trials when clinically indicated Chest x-ray read by radiologist as possible volume overload. Check CT thorax without contrast 04/16 revealed bilateral lower lobe infiltrates. VQ scan low probability GI: Hypoalbuminemia NGT placement Continue Jevity 1.5 goal 45 cc an hour Lansoprazole 30 mg daily for GI prophylaxis Docusate sodium/senna 1 tablet twice a day for bowel regimen Ammonia level - 22 Metoclopramide 5 mg 3 times a day for bowel motility : Carlos catheter will be placed for accurate I's and O's in a critically ill patient IV Lasix as above Endo: Hypothyroidism SSI with Novulin R with Accu-Cheks every 6 hours to maintain euglycemia/low regimen Continue levothyroxine 88 g daily. TSH 1.17 on admission Renal: Creatinine currently within normal limits Monitor urine output Accurate I's and O's Heme: Elevated PTT Leukocytosis Normocytic anemia Monitor CBC daily. Follow trends ID: Community-acquired pneumonia Right maxillary sinusitis Currently on vancomycin, aztreonam and metronidazole 04/13 blood cultures 2, urine Legionella pneumococcal antigen and influenza and urine cultures all no growth Sputum culture -follow up MSK: PT evaluate and treat FEN: Hypokalemia Replace electrolytes per ICU electrolyte protocol. Access - Left IJ CVL day 3 placed 04/16 Prophylaxis - GI - lansoprazole - DVT - SCD/enoxaparin Critical Care: Level 3 Cece Sarabia MD Apr 18, 2017 09:20
--- NOTE | 2017-04-18 12:04 | PD.ID.CON ---
History of Present Illness Service ID Consult Requested By Reason for Consult Evaluation and Mment of Pneumonia in a patient with multiple allergies and clinically deteriorating pneumonia. Primary Care Physician Katerina Horton MD Diagnoses: History of Present Illness is a 66 y/o CF with PMHx of dyslipidemia, hypothyroidism, depression, 40 pack year smoking history but no COPD diagnosis on record. Patient seen at [facility] ED 04/10/2017 per records for febrile illness. She recd Azithro, Zofran and Tessalon pearls. She represented to the ED at [place] on 04/13/2017 with O2 sats 64% on RA by EMS. No h/o CHF,but extensive smoking history in past , with continued passive exposure to smoke by smoking habit for additional 10 years. She reported to Arsalan CHAUDHRY that she was sleeping on a recliner due to shortness of breath. No pedal edema or weight gain reported on admission. Reported h/o nausea but no vomiting or aspiration like events. There is no no recent travels out of country or prolonged travels. Patient was admitted to floor and hospitalist noted a ? "seizure activity". She had intermittent confusion receiving levofloxacin. She was seen in consultation by neurology. She is currently on levetiracetam from neurology standpoint. Workup including EEG and MRI brain essentially within normal limits. While on floor she was evaluated for rapid shallow breathing. Patient has received lorazepam and haloperidol within the past 24 hours due to "agitation". No seizure activity noted. Patient was transferred to the IMC unit and patient was intubated due to ongoing resp distress. All cultures since admission are negative. ID was consulted for evaluation and Mment of Pneumonia in a patient with multiple antibiotic allergies. At the time of my evaluation, patient is in IMC on ventilator. Carlos in place with clear UO. On Neosynephrine 60 mics. Off Diprivan awake uses remote follows commands. Of note her Na on admission was 124. Legionella urine antigen was negative. Review of Systems ROS Limitations: Intubated Past Family Social History Allergies: Coded Allergies: amoxicillin (Verified Allergy, Severe, HIVES, THROAT CLOSES, 04/13/17) levofloxacin (Verified Allergy, Severe, Psychosis, 04/16/17) Pt has severe Pstchosis, Hallucinations, & aggitation Penicillins (Verified Allergy, Intermediate, HIVES, THROAT CLOSING, ) licorice (Verified Allergy, Intermediate, HIVES, 04/13/17) pineapple (Verified Allergy, Intermediate, HIVES, 04/13/17) shellfish derived (Verified Allergy, Intermediate, Anaphylaxis, 04/13/17) strawberry (Verified Allergy, Intermediate, HIVES, 04/13/17) Past Medical History Depression Hypothyroidism Dyslipidemia Past Surgical History Hysterectomy Reported Medications Reported Meds & Active Scripts Active Zofran (Ondansetron HCl) 4 Mg Tab 4 Mg PO Q6HR PRN Cheratussin AC Liq (Guaifenesin-Codeine Liq) 100-10 Mg/5 Ml Syrp 5-10 Ml PO Q4H PRN Do not exceed 6 doses/24 hrs. Zithromax Z-Cristobal (Azithromycin) 250 Mg Dspk 250 Mg PO DIRECTED 500 MG (2 tabs) day 1, then 1 tab days 2-5. Reported Crestor (Rosuvastatin Calcium) 20 Mg Tab 20 Mg PO DAILY Synthroid (Levothyroxine Sodium) 88 Mcg Tab 88 Mcg PO DAILY Mucinex DM (Dextromethorphan-Guaifenesin) 30-600 Mg Tab 1 Tab PO BID PRN Zoloft (Sertraline HCl) 50 Mg Tab 50 Mg PO DAILY Active Ordered Medications Current Medications Medications (Trade) Dose Ordered Sig/Renetta Route Start Time Stop Time Status Last Admin (NS Flush) 2 ml UNSCH PRN IV FLUSH 04/13/17 18:45 04/17/17 20:12 (NS Flush) 2 ml BID IV FLUSH 04/13/17 21:00 04/18/17 08:05 (Narcan Inj) 0.4 mg UNSCH PRN IV PUSH 04/13/17 18:45 Miscellaneous Information Patient in critical care unit? Ass... Q361D .XX 04/13/17 22:00 04/13/17 22:00 (Chlorhexidine 2% Cloth) 3 pack UNSCH PRN TOPICAL 04/13/17 22:00 04/18/17 21:53 (Synthroid) 88 mcg DAILY@0600 PO 04/14/17 06:00 04/18/17 05:26 (Zoloft) 50 mg DAILY PO 04/14/17 09:00 04/18/17 08:06 (Lipitor) 40 mg DAILY PO 04/14/17 09:00 04/18/17 08:06 (Tessalon) 200 mg Q8H PRN PO 04/14/17 08:15 Aztreonam 2000 mg/ Sodium Chloride 100 ml @ 200 mls/hr Q8H IV 04/14/17 10:00 04/18/17 01:32 (Albuterol Neb) 2.5 mg Q2HR NEB PRN INH 04/14/17 08:15 (Zofran Inj) 4 mg Q6H PRN IVP 04/14/17 08:15 (Narcan Inj) 0.4 mg UNSCH PRN IV PUSH 04/14/17 08:15 (Aicha-Colace) 1 tab BID PO 04/14/17 09:00 04/18/17 08:06 (Milk Of Magnesia Liq) 30 ml Q12H PRN PO 04/14/17 08:15 (Senokot) 17.2 mg Q12H PRN PO 04/14/17 08:15 (Dulcolax Supp) 10 mg DAILY PRN RECTAL 04/14/17 08:15 (Lactulose Liq) 30 ml DAILY PRN PO 04/14/17 08:15 (Ativan Inj) 0.5 mg Q6H PRN IV 04/15/17 17:15 04/16/17 00:54 (Haldol Inj) 1 mg Q8H PRN IM 04/15/17 17:15 (Ativan Inj) 1 mg Q2H PRN IV PUSH 04/16/17 09:15 (Peridex 0.12% Liq) 15 ml BID@08,20 MT 04/16/17 20:00 04/18/17 08:05 Propofol 100 ml @ 1.443 mls/ hr TITRATE PRN IV 04/16/17 16:00 04/18/17 08:05 Fentanyl Citrate 250 ml @ 5 mls/hr TITRATE PRN IV 04/16/17 16:00 04/17/17 22:51 Phenylephrine HCl 160 mg/Dextrose 500 ml @ 7.5 mls/hr TITRATE PRN IV 04/16/17 17:00 04/17/17 04:38 (Brethine Inj) 1 mg UNSCH PRN SQ 04/16/17 15:00 (Prevacid Odt) 30 mg DAILY NG 04/17/17 09:00 04/17/17 08:02 (Tears Naturale Opth Soln) 1 drop Q8HR EACH EYE 04/16/17 22:00 04/18/17 05:27 (NS Flush) DAILY IV FLUSH 04/17/17 09:00 04/18/17 08:05 (NS Flush) UNSCH PRN IV FLUSH 04/16/17 16:15 04/17/17 20:13 Potassium Chloride 100 ml @ 50 mls/hr Q2H PRN IV 04/16/17 16:15 Potassium Chloride 100 ml @ 50 mls/hr Q2H PRN IV 04/16/17 16:15 04/17/17 22:51 (K-Lyte Cl Eff) 50 meq UNSCH PRN PO 04/16/17 16:15 Potassium Chloride 100 ml @ 25 mls/hr UNSCH PRN IV 04/16/17 16:15 Potassium Chloride 100 ml @ 50 mls/hr Q2H PRN IV 04/16/17 16:15 Magnesium Sulfate 4 gm/Sodium Chloride 100 ml @ 50 mls/hr UNSCH PRN IV 04/16/17 16:15 (Mag-Ox) 800 mg UNSCH PRN PO 04/16/17 16:15 Magnesium Sulfate 2 gm/Sodium Chloride 100 ml @ 50 mls/hr UNSCH PRN IV 04/16/17 16:15 (K-Phos) 2,000 mg Q4H PRN PO 04/16/17 16:15 Sodium Phosphate 30 mmol/Sodium Chloride 250 ml @ 42 mls/hr UNSCH PRN IV 04/16/17 16:15 (K-Phos) 2,000 mg UNSCH PRN PO/TUBE 04/16/17 16:15 Potassium Phosphate 30 mmol/ Sodium Chloride 260 ml @ 42 mls/hr UNSCH PRN IV 04/16/17 16:15 04/17/17 06:30 (NovoLIN R SUPPLEMENTAL SCALE) 1 Q6HR SQ 04/16/17 18:00 (D50w (Vial) Inj) 50 ml UNSCH PRN IV PUSH 04/16/17 16:15 (Glucagon Inj) 1 mg UNSCH PRN OTHER 04/16/17 16:15 (Tylenol 650 Mg/ 20 ml Liq) 650 mg Q6H PRN DOBHOFF 04/16/17 16:15 04/17/17 08:01 Pharmacy Profile Note 0 ml @ 0 mls/hr UNSCH OTHER 04/16/17 16:15 (Flagyl) 500 mg Q6HR PO 04/16/17 18:00 04/18/17 05:26 (Pulmicort Respule Neb) 0.5 mg Q12HR NEB NEB 04/16/17 20:00 04/18/17 07:38 Midazolam HCl 100 ml @ 2 mls/hr TITRATE PRN IV 04/16/17 16:15 (Lovenox Inj) 40 mg Q24H SQ 04/16/17 17:00 04/17/17 18:20 Vancomycin HCl 1000 mg/Sodium Chloride 250 ml @ 250 mls/hr Q18H IV 04/17/17 12:00 04/18/17 05:27 Miscellaneous Information SPECIFIC LAB TO BE VANCE... ONCE ONCE .XX 04/18/17 23:45 04/18/17 23:46 (Reglan Inj) 5 mg Q8HR IV PUSH 04/17/17 14:00 04/18/17 05:26 (Duoneb Neb) 1 ampule QID NEB INH 04/17/17 16:00 04/18/17 07:38 (Keppra Liq) 500 mg Q12HR NG 04/17/17 21:00 04/18/17 08:06 Family History Father from CVA. Mother is alive at age 94. History of ischemic lites. Brother with diabetes mellitus. Social History Quit tobacco 40 years ago. Less than 10 pack years. Occasional wine use. Denies illicit drug use. Physical Exam Vital Signs Vital Signs Date Time Temp Pulse Resp B/P (MAP) Pulse Ox O2 Delivery O2 Flow Rate FiO2 04/18/17 11:25 101 14 85/50 (62) 91 04/18/17 11:25 101 04/18/17 11:23 100 04/18/17 11:23 100 14 80/47 (58) 90 04/18/17 11:21 100 04/18/17 11:21 100 14 80/46 (57) 91 04/18/17 11:20 100 14 82/48 (59) 91 04/18/17 11:20 100 04/18/17 11:19 100 14 80/48 (59) 93 18 11:19 100 18 11:17 106 18 11:17 106 14 79/48 (58) 93 18 11:15 100 04/18/17 11:15 100 14 74/44 (54) 87 04/18/17 11:00 124 15 84/52 (63) 87 04/18/17 11:00 124 04/18/17 10:45 128 22 111/59 (76) 89 04/18/17 10:45 128 04/18/17 10:30 137 25 104/58 (73) 89 04/18/17 10:30 137 04/18/17 10:15 133 23 109/58 (75) 95 04/18/17 10:15 133 04/18/17 10:00 127 04/18/17 10:00 127 22 112/58 (76) 98 04/18/17 09:45 140 19 120/60 (80) 100 04/18/17 09:45 140 04/18/17 09:30 102 04/18/17 09:30 102 16 118/58 (78) 100 04/18/17 09:15 92 10 119/57 (77) 97 04/18/17 09:15 92 04/18/17 09:00 40 04/18/17 09:00 97 04/18/17 09:00 97 14 115/58 (77) 95 04/18/17 08:45 100 18 112/67 (82) 98 04/18/17 08:45 100 04/18/17 08:30 70 14 120/61 (80) 96 04/18/17 08:30 70 04/18/17 08:15 63 14 116/62 (80) 98 04/18/17 08:15 63 04/18/17 08:00 62 04/18/17 08:00 98.6 62 14 113/60 (77) 96 04/18/17 08:00 40 04/18/17 07:39 94 40 04/18/17 06:00 58 101/59 (73) 04/18/17 06:00 58 04/18/17 04:50 99 40 04/18/17 04:30 57 111/58 04/18/17 04:00 59 04/18/17 04:00 40 04/18/17 04:00 98.9 60 14 98/53 (68) 97 04/18/17 02:00 73 04/18/17 01:10 95 40 04/18/17 00:45 62 109/55 04/18/17 00:31 59 118/57 04/18/17 00:00 99.0 60 14 115/59 (77) 97 04/18/17 00:00 60 04/18/17 00:00 40 04/17/17 22:55 61 129/59 04/17/17 22:10 98 40 04/17/17 22:00 59 04/17/17 20:00 64 04/17/17 20:00 64 107/68 (81) 04/17/17 20:00 99.5 64 14 107/56 (73) 95 04/17/17 20:00 40 04/17/17 19:55 95 40 04/17/17 18:00 66 104/51 (68) 04/17/17 18:00 66 04/17/17 16:00 50 04/17/17 16:00 58 04/17/17 16:00 99.2 58 14 141/63 (89) 99 04/17/17 15:17 99 40 04/17/17 14:00 73 Physical Exam GENERAL: Thin built, fairly well nourished patient, in no apparent distress. SKIN: No rashes, ecchymoses or lesions. Cool and dry. HEAD: Atraumatic. Normocephalic. No temporal or scalp tenderness. EYES: Pupils equal round and reactive. Extraocular motions intact. No scleral icterus. No injection or drainage. ENT: Nose without bleeding, purulent drainage or septal hematoma. Throat without erythema, tonsillar hypertrophy or exudate. Uvula midline. Airway patent. NECK: Trachea midline. Supple, nontender, no meningeal signs. CARDIOVASCULAR: Regular rate and rhythm without murmurs. RESPIRATORY: Occ wheezes, decreased air entry in bases. basilar crackles posteriorly. GASTROINTESTINAL: Abdomen soft, non-tender, nondistended. MUSCULOSKELETAL: Extremities without clubbing, cyanosis, or edema. No joint tenderness, effusion, or edema noted. No calf tenderness. Negative Homans sign bilaterally. NEUROLOGICAL: Awake and alert. Non focal exam. Using TV remote. Psych cooperative on vent. Laboratory Laboratory Tests Test 04/17/17 12:30 04/17/17 18:30 04/18/17 03:23 Urine Color YELLOW Urine Turbidity CLEAR Urine pH 6.0 Urine Specific [place] 1.026 Urine Protein TRACE Urine Glucose (UA) NEG Urine Ketones NEG Urine Occult Blood NEG Urine Nitrite NEG Urine Bilirubin NEG Urine Urobilinogen 2.0 Urine Leukocyte Esterase TRACE Urine RBC 3 Urine WBC 4 Urine Squamous Epithelial Cells <1 Urine Transitional Epithelial Cells <1 Urine Bacteria RARE Urine Mucus FEW Microscopic Urinalysis Comment CATH-CULTURE IND Potassium Level 3.4 3.6 Phosphorus Level 2.9 2.6 White Blood Count 12.2 Red Blood Count 2.54 Hemoglobin 8.5 Hematocrit 24.6 Mean Corpuscular Volume 97.0 Mean Corpuscular Hemoglobin 33.4 Mean Corpuscular Hemoglobin Concent 34.4 Red Cell Distribution Width 13.7 Platelet Count 331 Mean Platelet Volume 6.3 Blood Urea Nitrogen 7 Creatinine 0.27 Random Glucose 141 Calcium Level 7.9 Magnesium Level 1.9 Sodium Level 141 Chloride Level 107 Carbon Dioxide Level 29.3 Anion Gap 5 Estimat Glomerular Filtration Rate 252 Date/Time Source Procedure Growth Status 04/16/17 19:20 Blood Peripheral Aerobic Blood Culture - Preliminary NO GROWTH IN 2 DAYS Resulted 04/16/17 19:20 Blood Peripheral Anaerobic Blood Culture - Preliminary NO GROWTH IN 2 DAYS Resulted 04/16/17 18:40 Sputum Endotracheal Gram Stain - Final Complete 04/16/17 18:40 Sputum Endotracheal Sputum Culture - Final LIGHT GROWTH NORMAL RESPIRATORY FLAVIO Complete 04/17/17 12:30 Urine Clean Catch Urine Culture Pending Received Result Diagram: 04/18/17 0323 04/18/17 0323 Imaging Last Impressions Chest X-Ray 04/18/17 0600 Signed Impressions: Service Date/Time: Tuesday, April 18, 2017 03:02 - CONCLUSION: Bilateral areas of consolidation or atelectasis in the mid and lower lungs. Some degree of effusion cannot be excluded. Cornell Melendez MD Chest CT 04/16/17 0000 Signed Impressions: Service Date/Time: Sunday, April 16, 2017 21:02 - CONCLUSION: Small effusions and basilar predominant pneumonia on both sides. Endotracheal tube tip is less than a centimeter above the hero. Cornell Anna MD Head CT 04/15/17 0000 Signed Impressions: Service Date/Time: Saturday, April 15, 2017 12:01 - CONCLUSION: No acute intracranial process Cornell Tierney MD Brain MRI 04/15/17 0000 Signed Impressions: Service Date/Time: Saturday, April 15, 2017 18:01 - CONCLUSION: No acute intracranial findings. Bilateral ethmoid and maxillary sinus disease. Air- fluid level in the right maxillary sinus suggests acute sinusitis. Bernardo Cook MD Lung Scan- Nuclear Medicine 04/13/17 1630 Signed Impressions: Service Date/Time: Thursday, April 13, 2017 17:36 - CONCLUSION: Some air trapping in the right lung base. No significant perfusion defects are noted. No significant evidence of pulmonary embolism. Akash Long MD Assessment and Plan Assessment and Plan Pneumonia present on admission (CAP, Atypical, aspiration PNA) acute resp failure on vent. Hyponatremia on admission Extensive smoking history COPD exacerbation. Recs Continue Azactam IV decrease dose to q12hrs. DC Vanco IV Continue oral Flagyl Start oral Azithro stop date in chart. For possible Legionella given Na 124 on admission. d/w RN d.w Gardenia Leblanc MD Apr 18, 2017 12:04
[2017-04-18] MEDS: PHENYLEPHRINE INJ 160 MG in DEXTROSE 5% IN WATE 500 ML INJ 484 ML IV PRN ×2 (12:18)
[2017-04-18] MEDS: AZITHROMYCIN 250 MG TAB PO SCH (14:15)
[2017-04-18] MEDS: LACTOBACILLUS ACIDOPHILUS TAB PO SCH ×2 (14:15→21:02)
[2017-04-18] MEDS: ENOXAPARIN SODIUM 40 MG/0.4 ML SYRINGE SQ SCH (18:07)
--- NOTE | 2017-04-18 19:08 | HHI.PR ---
Subjective Remarks Patient was transferred to ICU yesterday intubated for airway protection. CT chest showed bibasilar pneumonia with small effusions. On Diprivan and Fentnayl drip for sedation. Also on Neosyn 40 mics. tolerated CPAP 1 hr, became techpnoic, desaturates On PRVC, fi02 40% Objective Vital Signs Vital Signs Date Time Temp Pulse Resp B/P (MAP) Pulse Ox O2 Delivery O2 Flow Rate FiO2 04/18/17 16:45 61 14 111/55 (73) 98 04/18/17 16:45 61 04/18/17 16:30 65 14 112/58 (76) 98 04/18/17 16:30 65 04/18/17 16:15 85 17 105/56 (72) 97 04/18/17 16:15 85 04/18/17 16:00 67 04/18/17 16:00 98.6 67 15 130/64 (86) 100 04/18/17 16:00 40 04/18/17 15:45 71 14 92/52 (65) 97 04/18/17 15:45 71 04/18/17 15:30 67 14 116/60 (78) 99 04/18/17 15:30 98 40 04/18/17 15:30 67 04/18/17 15:15 88 04/18/17 15:15 88 16 101/56 (71) 98 04/18/17 15:00 67 14 100/57 (71) 98 04/18/17 15:00 67 04/18/17 14:45 76 04/18/17 14:45 76 14 93/52 (66) 98 04/18/17 14:30 72 04/18/17 14:30 72 14 99/58 (72) 98 04/18/17 14:22 71 108/57 04/18/17 14:15 70 14 108/57 (74) 98 04/18/17 14:15 70 04/18/17 14:00 75 14 107/57 (74) 97 04/18/17 14:00 75 04/18/17 13:45 83 14 101/56 (71) 95 04/18/17 13:45 83 04/18/17 13:30 93 04/18/17 13:30 93 14 116/58 (77) 96 04/18/17 13:15 90 14 108/58 (75) 95 04/18/17 13:15 90 04/18/17 13:00 99 04/18/17 13:00 99 14 107/57 (74) 96 04/18/17 12:45 94 14 98/56 (70) 97 04/18/17 12:45 94 04/18/17 12:38 94 40 04/18/17 12:30 88 14 93/54 (67) 96 04/18/17 12:30 88 04/18/17 12:18 86 111/66 04/18/17 12:15 98 19 111/66 (81) 98 04/18/17 12:15 98 04/18/17 12:00 98 04/18/17 12:00 40 04/18/17 12:00 98 16 107/66 (80) 97 04/18/17 11:25 101 14 85/50 (62) 91 04/18/17 11:25 101 04/18/17 11:23 100 04/18/17 11:23 100 14 80/47 (58) 90 04/18/17 11:21 100 04/18/17 11:21 100 14 80/46 (57) 91 04/18/17 11:20 100 14 82/48 (59) 91 04/18/17 11:20 100 04/18/17 11:19 100 14 80/48 (59) 93 04/18/17 11:19 100 04/18/17 11:17 106 04/18/17 11:17 106 14 79/48 (58) 93 04/18/17 11:15 100 04/18/17 11:15 100 14 74/44 (54) 87 04/18/17 11:00 124 15 84/52 (63) 87 04/18/17 11:00 124 04/18/17 10:45 128 22 111/59 (76) 89 04/18/17 10:45 128 04/18/17 10:30 137 25 104/58 (73) 89 04/18/17 10:30 137 04/18/17 10:15 133 23 109/58 (75) 95 04/18/17 10:15 133 04/18/17 10:00 127 04/18/17 10:00 127 22 112/58 (76) 98 04/18/17 09:45 140 19 120/60 (80) 100 04/18/17 09:45 140 04/18/17 09:30 102 04/18/17 09:30 102 16 118/58 (78) 100 04/18/17 09:15 92 10 119/57 (77) 97 04/18/17 09:15 92 04/18/17 09:00 40 04/18/17 09:00 97 04/18/17 09:00 97 14 115/58 (77) 95 04/18/17 08:45 100 18 112/67 (82) 98 04/18/17 08:45 100 04/18/17 08:30 70 14 120/61 (80) 96 04/18/17 08:30 70 04/18/17 08:15 63 14 116/62 (80) 98 04/18/17 08:15 63 04/18/17 08:00 62 04/18/17 08:00 98.6 62 14 113/60 (77) 96 04/18/17 08:00 40 04/18/17 07:39 94 40 04/18/17 06:00 58 101/59 (73) 04/18/17 06:00 58 04/18/17 04:50 99 40 04/18/17 04:30 57 111/58 04/18/17 04:00 59 04/18/17 04:00 40 04/18/17 04:00 98.9 60 14 98/53 (68) 97 04/18/17 02:00 73 04/18/17 01:10 95 40 04/18/17 00:45 62 109/55 04/18/17 00:31 59 118/57 04/18/17 00:00 99.0 60 14 115/59 (77) 97 04/18/17 00:00 60 04/18/17 00:00 40 04/17/17 22:55 61 129/59 04/17/17 22:10 98 40 04/17/17 22:00 59 04/17/17 20:00 64 04/17/17 20:00 64 107/68 (81) 04/17/17 20:00 99.5 64 14 107/56 (73) 95 04/17/17 20:00 40 04/17/17 19:55 95 40 I/O 1/14/18 04/17/17 04/17/17 04/18/17 04/18/17 04/18/17 07:00 15:00 23:00 07:00 15:00 23:00 Intake Total 791.1 ml 1100 ml 649 ml 1722 ml 100 ml Output Total 625 ml 625.0 ml 650 ml Balance 166.1 ml 1100 ml 24.0 ml 1072 ml 100 ml Intake Oral 0 ml 0 ml IV Total 483.1 ml 1100 ml 441 ml 1155 ml 100 ml Tube Feeding 108 ml 208 ml 367 ml Other 200 ml 200 ml Output Urine Total 625 ml 625 ml 650 ml Tube Feeding Residual Discard 0 ml 0 ml Bladder Scan Volume Amount 609 ml 609 ml # Bowel Movements 1 0 1 Result Diagram: 04/18/173 04/18/17 032 Objective Remarks GENERAL: Patient is 66 yo intubated and sedated SKIN: Warm and dry. HEAD: Normocephalic. EYES: No scleral icterus. No injection or drainage. NECK: Supple, trachea midline. No JVD or lymphadenopathy. Orally intubated CARDIOVASCULAR: Regular rate and rhythm without murmurs, gallops, or rubs. RESPIRATORY: Breath sounds equal bilaterally. No accessory muscle use. GASTROINTESTINAL: Abdomen soft, non-tender, nondistended. MUSCULOSKELETAL: No cyanosis, or edema. BACK: Nontender without obvious deformity. No CVA tenderness. Neuro: Intubated A/P Assessment and Plan 1)VDRF 2)Pneumonia 3)Encephalopathy 4)Sz 5)depression 6)Hypothyroidism PLAN: Continued with vent support keep sat >92% Bronchodilators, ICU vent bundle. CT chest showed bibasilar pneumonia with small effusions. Continue with abx (Aztreonam, Vanco, Flagyl) follow up on BC and sputum cx from 04/16: NGTD Strep pneumonia, Legionella urinary Ag and Influenza all negative. Monitor neuro status- On keppra. Neuro is following Continue with IVF. Wean off Neosyn keep MAP>65mmHg GI/DVT prophylaxis Continue treatment plan. CPAP trial in AM Mihai Peng MD Apr 18, 2017 19:08
[2017-04-18] MEDS ORDERED: PHARMACY ORDERED LAB ONE (23:45)
[2017-04-19] VITALS (18 sets, daily range): BP systolic 78–146; BP diastolic 48–74; PULSE 53–124; RESP 14–19; TEMP 98.6–100; O2SAT 92–100
[2017-04-19] MEDS: metroNIDAZOLE 500 MG TAB PO SCH ×4 (00:52→16:27)
[2017-04-19] MEDS: PROPOFOL 1000 MG/100 ML INJ 100 ML IV PRN ×2 (00:52→12:34)
[2017-04-19] MEDS: ARTIFICIAL TEARS OPTH SOLN 15 ML BTL EACH EYE SCH ×3 (05:32→21:12)
[2017-04-19] MEDS: METOCLOPRAMIDE HCL 10 MG/2 ML VIAL IV PUSH SCH ×3 (05:33→21:12)
[2017-04-19] MEDS: LEVOTHYROXINE SODIUM 88 MCG TAB PO SCH (05:33)
[2017-04-19] MEDS: INSULIN NovoLIN REGULAR SUPPLEMENTAL SCALE SQ SCH ×4 (05:33→17:48)
[2017-04-19] MEDS: fentaNYL DRIP 250 ML IV PRN (07:29)
[2017-04-19] MEDS: RESP: BUDESONIDE 0.5 MG/2 ML NEB NEB SCH ×2 (07:46→20:00)
[2017-04-19] MEDS: RESP: ALBUTEROL 2.5 MG/IPRATROPIUM 0.5 MG NEB (SCH) INH ×4 (07:46→20:11)
[2017-04-19] MEDS: levETIRAcetam 500 MG/5 ML UDC NG SCH ×2 (08:39→20:34)
[2017-04-19] MEDS: LANSOPRAZOLE SOLUTAB 30 MG TAB NG SCH (08:39)
[2017-04-19] MEDS: ATORVASTATIN 40 MG TAB PO SCH (08:40)
[2017-04-19] MEDS: AZITHROMYCIN 250 MG TAB PO SCH (08:40)
[2017-04-19] MEDS: DOCUSATE SODIUM 50 MG/SENNA 8.6 MG TAB PO SCH ×2 (08:40→20:34)
[2017-04-19] MEDS: SERTRALINE HCL 50 MG TAB PO SCH (08:40)
[2017-04-19] MEDS: SODIUM CHLORIDE 0.9% FLUSH 10 ML FLUSH IV FLUSH SCH ×3 (08:40→20:33)
[2017-04-19] MEDS: LACTOBACILLUS ACIDOPHILUS TAB PO SCH ×2 (08:40→20:38)
[2017-04-19] MEDS: CHLORHEXIDINE 0.12% (ORAL KIT) 15 ML CUP MT SCH ×2 (08:41→20:34)
[2017-04-19] MEDS: AZTREONAM INJ 2,000 MG in SODIUM CHLORIDE 0.9% INJ 100 ML IV SCH ×2 (10:11→21:12)
[2017-04-19] MEDS ORDERED: FUROSEMIDE 40 MG/4 ML VIAL IV PUSH ONE (10:30)
[2017-04-19] MEDS ORDERED: POTASSIUM CHLOR 40 MEQ PREMIX 100 ML IV ONE (10:30)
--- NOTE | 2017-04-19 11:53 | RADRPT ---
EXAM DATE/TIME: 04/19/2017 10:49 [facility] COMPARISON: CHEST SINGLE AP, April 18, 2017, 3:02. INDICATIONS : Respiratory failure. MEDICAL HISTORY : Osteoarthritis. Hypertension. Hypothyroidism SURGICAL HISTORY : Hysterectomy. ENCOUNTER: Subsequent ACUITY: 1 week PAIN SCORE: Non-responsive. LOCATION: Bilateral chest FINDINGS: Portable AP view of the chest with a normal-sized cardiac silhouette. ETT, NG tube, and left IJ line remain present. There is stable left basilar pleural-parenchymal opacity. Air space consolidation rem ains present the right lung base with some improved aeration. No pneumothorax is visualized. CONCLUSION: 1. Stable left pleural effusion with associated volume loss and/or airspace consolidation. 2. Persistent but improved airspace consolidation at the right lung base. Cornell Renner MD on April 19, 2017 at 11:33 Board Certified Radiologist. This report was verified electronically.
[2017-04-19] MEDS: ONDANSETRON HCL 4 MG/2 ML VIAL IVP PRN (12:07)
[2017-04-19] MEDS: SODIUM CHLORIDE 0.9% FLUSH 10 ML FLUSH IV FLUSH PRN (12:07)
--- NOTE | 2017-04-19 12:21 | HHI.CCPN ---
Subjective Remarks/Hospital Course This is a 66-year-old female. Data admission 04/13/2017. Date of consultation 04/16/2017. Past medical history includes dyslipidemia, hypothyroidism and depression.visual illness symptoms onset occurred at the beginning of April. She seen at [facility] for febrile illness. She received azithromycin, Tessalon Perles and ondansetron. She came to have fevers chills. Upon presentation to the ED on 04/13 patient's studies. Hypoxic and placed on nonrebreather mask. CULTURES were negative. The hospitalist and patient had a "seizure activity". She has intermittent confusion receiving levofloxacin. She has been seen in consultation by neurology. She is currently on levetiracetam from neurology standpoint. Workup including EEG and MRI brain essentially within normal limits. Today, pulmonology evaluated patient to be With rapid shallow breathing. Patient has received lorazepam and haloperidol within the past 24 hours due to "agitation". No seizure activity noted. Upon arrival to the ICU, patient was reread was in the 40s. Elective intubation. Central line placement. 04/18/17: Remains intubated. All sedation except follows commands. Chest x-ray is essentially unchanged. Cultures remain negative. Tomas-Synephrine on hold. Hemodynamically remaining stable 04/19/17: Remains intubated off sedation follows commands. Tolerating CPAP but ABGs shows persistent hypoxia and chest x-ray shows bilateral basilar effusions and consolidation. Plan for bedside US and drainage of effusion if large enough prior to extubation Objective Vital Signs Date Time Temp Pulse Resp B/P (MAP) Pulse Ox O2 Delivery O2 Flow Rate FiO2 04/19/17 11:29 93 40 04/19/17 10:00 124 04/19/17 08:00 98.6 14 93/49 (64) 04/18/17 19:46 Ventilator 04/16/17 12:00 3.00 Intake and Output 04/19/17 04/19/17 04/20/17 08:00 16:00 00:00 Intake Total 1783 ml 497 ml Output Total 1250 ml Balance 533 ml 497 ml Result Diagram: 04/18/17 0323 04/18/17 0323 Other Results Microbiology Date/Time Source Procedure Growth Status 04/16/17 18:40 Sputum Endotracheal Gram Stain - Final Complete 04/16/17 18:40 Sputum Endotracheal Sputum Culture - Final LIGHT GROWTH NORMAL RESPIRATORY FLAVIO Complete 04/17/17 12:30 Urine Clean Catch Urine Culture - Final NO GROWTH IN 48 HOURS. Complete Laboratory Tests Test 04/19/17 11:10 Blood Gas Puncture Site LT RADIAL Blood Gas Patient Temperature 98.6 Blood Gas HCO3 32 mmol/L (22-26) Blood Gas Base Excess 7.0 mmol/L (-2-2) Blood Gas Oxygen Saturation 88 % (90-100) Arterial Blood pH 7.42 (7.380-7.420) Arterial Blood Partial Pressure CO2 50 mmHg (38-42) Arterial Blood Partial Pressure O2 62 mmHg (61-120) Arterial Blood Oxygen Content 13.7 Vol % (12.0-20.0) Arterial Blood Carboxyhemoglobin 0.8 % (0-4) Arterial Blood Methemoglobin 0.9 % (0-2) Blood Gas Hemoglobin 11.0 G/DL (12.0-16.0) Oxygen Delivery Device VENTILATOR Blood Gas Ventilator Setting [id number] Blood Gas Inspired Oxygen 40 % Imaging Last Impressions Chest X-Ray 04/16/17 0000 Signed Impressions: Service Date/Time: Sunday, April 16, 2017 15:59 - CONCLUSION: 1. Worsening bibasilar consolidation. 2. Endotracheal tube tip is 1.5 cm above the hero. 3. Right IJ central venous catheter has its tip at the atriocaval junction. No pneumothorax. Cornell Anna MD Chest CT 04/16/17 0000 Signed Impressions: Service Date/Time: Sunday, April 16, 2017 21:02 - CONCLUSION: Small effusions and basilar predominant pneumonia on both sides. Endotracheal tube tip is less than a centimeter above the hero. Cornell Anna MD Head CT 04/15/17 0000 Signed Impressions: Service Date/Time: Saturday, April 15, 2017 12:01 - CONCLUSION: No acute intracranial process Cornell Tierney MD Brain MRI 04/15/17 0000 Signed Impressions: Service Date/Time: Saturday, April 15, 2017 18:01 - CONCLUSION: No acute intracranial findings. Bilateral ethmoid and maxillary sinus disease. Air- fluid level in the right maxillary sinus suggests acute sinusitis. Bernardo Cook MD Lung Scan- Nuclear Medicine 04/13/17 1630 Signed Impressions: Service Date/Time: Thursday, April 13, 2017 17:36 - CONCLUSION: Some air trapping in the right lung base. No significant perfusion defects are noted. No significant evidence of pulmonary embolism. Akash Long MD Objective Remarks GENERAL: 66-year-old female critically ill currently orotracheally intubated SKIN: Warm and dry. Well perfused HEAD: Atraumatic. Normocephalic. EYES: Pupils equal and round about 3 millimeters bilaterally and reactive. No scleral icterus. No injection or drainage. ENT: No nasal bleeding or discharge. Mucous membranes pink and moist. NECK: Trachea midline. No JVD. Right IJ is clean dry and intact CARDIOVASCULAR: RR. S1, S2 no S4. Without murmur RESPIRATORY: Coarse crackles appreciated bilateral lower lobes. No expiratory wheeze. GASTROINTESTINAL: Abdomen soft, non-tender, nondistended. Hypoactive bowel sounds MUSCULOSKELETAL: Extremities without significant peripheral edema. No obvious deformities. NEUROLOGICAL: Arousable on the ventilator and follows commands in all 4 extremities. Strength appears equal and symmetric. Nonfocal. Procedures none Date of Insertion: Apr 16, 2017 Line: Central Venous Catheter Side: Right Location: Internal, Jugular A/P Assessment and Plan Neuro/Psych: Acute toxic metabolic encephalopathy Seizure? Depression NOS Currently on sedation hold Goal of RASS -1, Daily sedation vacation MRI brain revealed bilateral ethmoid and maxillary sinusitis with acute component of right maxillary sinusitis CT brain revealed no acute intracranial findings EEG revealed no epileptiform activity Evaluated by Dr. Lew/neurology. Currently on levetiracetam 500 mg ng twice a day Acetaminophen 650 mg by tube every 6 hours when necessary fever Currently on sertraline 50 mg daily Written for as needed haloperidol 1 mg IV every 8 hours and lorazepam 0.5 mg every 6 hours when necessary agitation CV: Hypotension Sinus tachycardia Severe sepsis IV fluids discontinued. Give IV Lasix 40 mg 1 04/18, and repeat dose 04/19, start scheduled Lasix 40 mg every 12 IV with IV albumin Tomas-Synephrine to keep map above 65 2-D echocardiogram revealed normal LV systolic function. Bilateral atrial enlargement. PAP 41 mmHg. Not requiring antihypertensives and/or vasopressors at the present time Currently on pravastatin 40 mg by mouth daily/hospital substitution for medication rosuvastatin 20 mg by mouth daily Resp: Acute hypoxic hypercapnic respiratory failure History of prior tobaccoism Community-acquired pneumonia [facility] 14/500/1.3/5/40 Ventilator bundle, Albuterol/ipratropium aerosols every 6 hours with albuterol aerosols every 2 hours. Dyspnea Spontaneous breathing trials Chest x-ray read by radiologist as possible volume overload. IV LAsix as above Check CT thorax without contrast 04/16 revealed bilateral lower lobe infiltrates. VQ scan low probability Repeat Chest US today GI: Hypoalbuminemia NGT placement. Continue Jevity 1.5 goal 45 cc an hour Lansoprazole 30 mg daily for GI prophylaxis Docusate sodium/senna 1 tablet twice a day for bowel regimen Ammonia level - 22 Metoclopramide 5 mg 3 times a day for bowel motility : Carlos catheter will be placed for accurate I's and O's in a critically ill patient IV Lasix as above Endo: Hypothyroidism SSI with Novulin R with Accu-Cheks every 6 hours to maintain euglycemia/low regimen Continue levothyroxine 88 g daily. TSH 1.17 on admission Renal: Creatinine currently within normal limits Monitor urine output Accurate I's and O's IV LAsix as above Heme: Elevated PTT Leukocytosis Normocytic anemia Monitor CBC daily. Follow trends ID: Community-acquired pneumonia Right maxillary sinusitis Currently on vancomycin, aztreonam and metronidazole Oral Azithromycin started by ID 04/13 blood cultures 2, urine Legionella pneumococcal antigen and influenza and urine cultures all no growth Sputum culture -follow up MSK: PT evaluate and treat FEN: Hypokalemia Replace electrolytes per ICU electrolyte protocol. Access - Left IJ CVL day 4 placed 04/16 Prophylaxis - GI - lansoprazole - DVT - SCD/enoxaparin Critical Care: Level 3 Cece Sarabia MD Apr 19, 2017 12:21
[2017-04-19] MEDS: POTASSIUM CHLORIDE 25 MEQ EFFERVESCENT TAB PO SCH (13:33)
[2017-04-19] MEDS: ALBUMIN 25% INJ 50 ML IV SCH (13:33)
[2017-04-19] MEDS: FUROSEMIDE 40 MG/4 ML VIAL IV PUSH SCH (16:26)
[2017-04-19] MEDS: ENOXAPARIN SODIUM 40 MG/0.4 ML SYRINGE SQ SCH (16:26)
--- NOTE | 2017-04-19 19:07 | HHI.PR ---
Subjective Remarks Patient was transferred to ICU yesterday intubated for airway protection. CT chest showed bibasilar pneumonia with small effusions. On Diprivan and Fentnayl drip for sedation. Also on Neosyn 40 mics. tolerated CPAP 1 hr, became techpnoic, desaturates On PRVC, fi02 40% On neosyn low dose Diureased 4 L Objective Vital Signs Vital Signs Date Time Temp Pulse Resp B/P (MAP) Pulse Ox O2 Delivery O2 Flow Rate FiO2 04/19/17 18:00 73 04/19/17 16:00 35 04/19/17 16:00 113 04/19/17 16:00 99.7 78 18 120/58 (78) 97 04/19/17 15:18 35 04/19/17 15:18 99 40 04/19/17 14:00 66 04/19/17 12:00 98.8 114 19 78/48 (58) 92 04/19/17 12:00 114 04/19/17 12:00 35 04/19/17 11:29 93 40 04/19/17 10:00 124 04/19/17 08:45 35 04/19/17 08:44 100 40 04/19/17 08:44 40 04/19/17 08:00 66 04/19/17 08:00 98.6 66 14 93/49 (64) 96 04/19/17 07:46 95 40 04/19/17 06:00 60 04/19/17 06:00 04/19/17 04:00 99.2 62 14 94/53 (67) 99 04/19/17 04:00 62 04/19/17 04:00 40 04/19/17 03:37 100 40 04/19/17 02:00 67 04/19/17 00:50 114 98/54 04/19/17 00:00 40 04/19/17 00:00 100.0 53 14 131/63 (85) 100 04/19/17 00:00 53 04/18/17 23:38 100 40 04/18/17 22:00 59 04/18/17 20:00 98.9 54 14 145/68 (93) 99 04/18/17 20:00 54 04/18/17 20:00 40 04/18/17 19:46 99 Ventilator 04/18/17 19:38 99 40 1/15/18 19:30 53 04/18/17 19:15 52 I/O 04/18/17 04/18/17 04/18/17 04/19/17 04/19/17 04/19/17 07:00 15:00 23:00 07:00 15:00 23:00 Intake Total 1722 ml 100 ml 555 ml 1783 ml 712 ml 828 ml Output Total 650 ml 1400 ml 1250 ml 1700 ml 1625 ml Balance 1072 ml 100 ml -845 ml 533 ml -988 ml -797 ml Intake Oral 0 ml IV Total 1155 ml 100 ml 100 ml 1228 ml 315 ml 255 ml Tube Feeding 367 ml 335 ml 495 ml 217 ml 273 ml Tube Irrigant 60 ml Other 200 ml 120 ml 180 ml 300 ml Output Urine Total 650 ml 1400 ml 1250 ml 1700 ml 1625 ml Stool Total 0 ml Tube Feeding Residual Discard 0 ml Bladder Scan Volume Amount 609 ml # Bowel Movements 1 0 Result Diagram: 04/18/17 0323 04/18/17 0323 Objective Remarks GENERAL: Patient is 66 yo intubated and sedated SKIN: Warm and dry. HEAD: Normocephalic. EYES: No scleral icterus. No injection or drainage. NECK: Supple, trachea midline. No JVD or lymphadenopathy. Orally intubated CARDIOVASCULAR: Regular rate and rhythm without murmurs, gallops, or rubs. RESPIRATORY: Breath sounds equal bilaterally. No accessory muscle use. GASTROINTESTINAL: Abdomen soft, non-tender, nondistended. MUSCULOSKELETAL: No cyanosis, or edema. BACK: Nontender without obvious deformity. No CVA tenderness. Neuro: Intubated A/P Assessment and Plan 1)VDRF 2)Pneumonia 3)Encephalopathy 4)Sz 5)depression 6)Hypothyroidism PLAN: Continued with vent support keep sat >92% Bronchodilators, ICU vent bundle. CT chest showed bibasilar pneumonia with small effusions. Continue with abx (Aztreonam, Vanco, Flagyl) follow up on BC and sputum cx from 04/16: NGTD Strep pneumonia, Legionella urinary Ag and Influenza all negative. Monitor neuro status- On keppra. Neuro is following Continue with IVF. Wean off Neosyn keep MAP>65mmHg GI/DVT prophylaxis Diurease CPAP trial in Mihai Flanagan MD Apr 19, 2017 19:07
[2017-04-20] VITALS (18 sets, daily range): BP systolic 98–129; BP diastolic 55–62; PULSE 56–122; RESP 14–23; TEMP 98.5–99.2; O2SAT 94–99
[2017-04-20] MEDS: metroNIDAZOLE 500 MG TAB PO SCH ×5 (00:13→23:39)
[2017-04-20] MEDS: ALBUMIN 25% INJ 50 ML IV SCH ×3 (00:13→23:40)
[2017-04-20] MEDS: PROPOFOL 1000 MG/100 ML INJ 100 ML IV PRN (02:03)
[2017-04-20] MEDS: METOCLOPRAMIDE HCL 10 MG/2 ML VIAL IV PUSH SCH ×3 (05:01→21:06)
[2017-04-20] MEDS: ONDANSETRON HCL 4 MG/2 ML VIAL IVP PRN (05:02)
[2017-04-20] MEDS: ARTIFICIAL TEARS OPTH SOLN 15 ML BTL EACH EYE SCH ×3 (05:02→21:06)
[2017-04-20] MEDS: LEVOTHYROXINE SODIUM 88 MCG TAB PO SCH (05:02)
[2017-04-20] MEDS: INSULIN NovoLIN REGULAR SUPPLEMENTAL SCALE SQ SCH ×4 (06:00→18:00)
[2017-04-20] MEDS: RESP: BUDESONIDE 0.5 MG/2 ML NEB NEB SCH ×2 (08:19→19:33)
[2017-04-20] MEDS: RESP: ALBUTEROL 2.5 MG/IPRATROPIUM 0.5 MG NEB (SCH) INH ×4 (08:19→19:33)
[2017-04-20] MEDS ORDERED: MAGNESIUM HYDROXIDE SUSP 30 ML CUP PO ONE (08:45)
[2017-04-20] MEDS: levETIRAcetam 500 MG/5 ML UDC NG SCH ×2 (08:49→20:53)
[2017-04-20] MEDS: FUROSEMIDE 40 MG/4 ML VIAL IV PUSH SCH ×2 (08:49→17:03)
[2017-04-20] MEDS: CHLORHEXIDINE 0.12% (ORAL KIT) 15 ML CUP MT SCH ×2 (08:50→20:00)
[2017-04-20] MEDS: DOCUSATE SODIUM 50 MG/SENNA 8.6 MG TAB PO SCH ×2 (08:50→20:54)
[2017-04-20] MEDS: POTASSIUM CHLORIDE 25 MEQ EFFERVESCENT TAB PO SCH (08:50)
[2017-04-20] MEDS: SERTRALINE HCL 50 MG TAB PO SCH (08:50)
[2017-04-20] MEDS: LACTOBACILLUS ACIDOPHILUS TAB PO SCH ×2 (08:50→20:53)
[2017-04-20] MEDS: SODIUM CHLORIDE 0.9% FLUSH 10 ML FLUSH IV FLUSH SCH ×3 (08:50→20:54)
[2017-04-20] MEDS: ATORVASTATIN 40 MG TAB PO SCH (08:50)
[2017-04-20] MEDS: AZITHROMYCIN 250 MG TAB PO SCH (08:50)
[2017-04-20] MEDS: LANSOPRAZOLE SOLUTAB 30 MG TAB NG SCH (08:50)
[2017-04-20] MEDS ORDERED: PROMETHAZINE INJ 25 MG/ML VIAL IV-CENTRAL ONE (09:15)
--- NOTE | 2017-04-20 09:33 | RADRPT ---
EXAM DATE/TIME: 04/20/2017 08:17 [place] COMPARISON: CHEST SINGLE AP, April 19, 2017, 10:49. INDICATIONS : Respiratory failure. MEDICAL HISTORY : None. SURGICAL HISTORY : None. ENCOUNTER: Subsequent ACUITY: 1 week PAIN SCORE: Non-responsive. LOCATION: chest FINDINGS: A single view of the chest demonstrates the endotracheal tube again remains over the left edge of the trachea I still believe normal. There is a nasogastric tube in position. A left IJ central venous ca theter in good position. The heart and mediastinum are unremarkable. There are bilateral pleural effu sions with expected passive bibasilar atelectasis. I do not seen any evidence of pneumothorax.. Osse ous structures are intact. CONCLUSION: Indistinctness of the hemidiaphragms and some increased density suggesting a combination of pleural e ffusions and bibasilar atelectasis. Tubes and catheters as above. Akash Long MD on April 20, 2017 at 9:29 Board Certified Radiologist. This report was verified electronically.
--- NOTE | 2017-04-20 09:53 | HHI.IDPN ---
Subjective Subjective Remarks is a 66 y/o CF with PMHx of dyslipidemia, hypothyroidism, depression, 40 pack year smoking history but no COPD diagnosis on record. Patient seen at [facility] ED 04/10/2017 per records for febrile illness. She recd Azithro, Zofran and Tessalon pearls. She represented to the ED at [place] on 04/13/2017 with O2 sats 64% on RA by EMS. No h/o CHF,but extensive smoking history in past , with continued passive exposure to smoke by smoking habit for additional 10 years. She reported to Arsalan CHAUDHRY that she was sleeping on a recliner due to shortness of breath. No pedal edema or weight gain reported on admission. Reported h/o nausea but no vomiting or aspiration like events. There is no no recent travels out of country or prolonged travels. Patient was admitted to floor and hospitalist noted a ? "seizure activity". She had intermittent confusion receiving levofloxacin. She was seen in consultation by neurology. She is currently on levetiracetam from neurology standpoint. Workup including EEG and MRI brain essentially within normal limits. While on floor she was evaluated for rapid shallow breathing. Patient has received lorazepam and haloperidol within the past 24 hours due to "agitation". No seizure activity noted. Patient was transferred to the IMC unit and patient was intubated due to ongoing resp distress. All cultures since admission are negative. ID was consulted for evaluation and Mment of Pneumonia in a patient with multiple antibiotic allergies. At the time of my evaluation, patient is in IMC on ventilator. Carlos in place with clear UO. On Neosynephrine 60 mics. Off Diprivan awake uses remote follows commands. Of note her Na on admission was 124. Legionella urine antigen was negative. Overnight events reviewed. No fevers No rash No diarrhea Remains on vent 15/5. Desats per RN. CPAP trials ongoing. Secretions small to moderate, pale yellow. UO Ok. Awake on vent responds to commands. Antibiotics Aztreonam IV Azithro oral. Flagyl oral. Lines Line sites with no e.o infection Past Medical History Depression Hypothyroidism Dyslipidemia Hysterectomy Allergies: Coded Allergies: amoxicillin (Verified Allergy, Severe, HIVES, THROAT CLOSES, 04/13/17) levofloxacin (Verified Allergy, Severe, Psychosis, 04/16/17) Pt has severe Pstchosis, Hallucinations, & aggitation Penicillins (Verified Allergy, Intermediate, HIVES, THROAT CLOSING, ) licorice (Verified Allergy, Intermediate, HIVES, 04/13/17) pineapple (Verified Allergy, Intermediate, HIVES, 04/13/17) shellfish derived (Verified Allergy, Intermediate, Anaphylaxis, 04/13/17) strawberry (Verified Allergy, Intermediate, HIVES, 04/13/17) Objective . Vital Signs Date Time Temp Pulse Resp B/P (MAP) Pulse Ox O2 Delivery O2 Flow Rate FiO2 04/20/17 08:19 94 40 04/20/17 08:19 40 04/20/17 06:00 65 04/20/17 04:00 99.1 72 18 114/60 (78) 98 04/20/17 04:00 72 04/20/17 04:00 40 04/20/17 03:19 99 40 04/20/17 02:00 56 04/20/17 00:04 98 40 04/20/17 00:00 65 04/20/17 00:00 99.2 65 14 129/62 (84) 99 04/20/17 00:00 40 04/19/17 23:15 57 152/71 04/19/17 22:00 72 04/19/17 21:00 92 99/55 04/19/17 20:00 81 04/19/17 20:00 40 04/19/17 20:00 99.4 81 14 146/74 (98) 96 04/19/17 19:42 100 40 04/19/17 18:00 73 04/19/17 16:00 35 04/19/17 16:00 113 04/19/17 16:00 99.7 78 18 120/58 (78) 97 04/19/17 15:18 35 04/19/17 15:18 99 40 04/19/17 14:00 66 04/19/17 12:00 98.8 114 19 78/48 (58) 92 04/19/17 12:00 114 04/19/17 12:00 35 04/19/17 11:29 93 40 04/19/17 10:00 124 04/20/17 04/20/17 04/21/17 15:00 23:00 07:00 Intake Total 304 ml Balance 304 ml IV Total 185 ml Tube Feeding 119 ml . Microbiology Date/Time Source Procedure Growth Status 04/17/17 12:30 Urine Clean Catch Urine Culture - Final NO GROWTH IN 48 HOURS. Complete Imaging Last Impressions Chest X-Ray 04/20/17 0000 Signed Impressions: Service Date/Time: Thursday, April 20, 2017 08:17 - CONCLUSION: Indistinctness of the hemidiaphragms and some increased density suggesting a combination of pleural effusions and bibasilar atelectasis. Tubes and catheters as above. Akash Long MD Chest CT 04/16/17 0000 Signed Impressions: Service Date/Time: Sunday, April 16, 2017 21:02 - CONCLUSION: Small effusions and basilar predominant pneumonia on both sides. Endotracheal tube tip is less than a centimeter above the hero. Cornell Anna MD Head CT 04/15/17 0000 Signed Impressions: Service Date/Time: Saturday, April 15, 2017 12:01 - CONCLUSION: No acute intracranial process Cornell Tierney MD Brain MRI 04/15/17 0000 Signed Impressions: Service Date/Time: Saturday, April 15, 2017 18:01 - CONCLUSION: No acute intracranial findings. Bilateral ethmoid and maxillary sinus disease. Air- fluid level in the right maxillary sinus suggests acute sinusitis. Bernardo Cook MD Lung Scan- Nuclear Medicine 04/13/17 1630 Signed Impressions: Service Date/Time: Thursday, April 13, 2017 17:36 - CONCLUSION: Some air trapping in the right lung base. No significant perfusion defects are noted. No significant evidence of pulmonary embolism. Akash Long MD Physical Exam GENERAL: Thin built, fairly well nourished patient, in no apparent distress. SKIN: No rashes, ecchymoses or lesions. Cool and dry. HEAD: Atraumatic. Normocephalic. No temporal or scalp tenderness. EYES: Pupils equal round and reactive. Extraocular motions intact. No scleral icterus. No injection or drainage. ENT: Nose without bleeding, purulent drainage or septal hematoma. Throat without erythema, tonsillar hypertrophy or exudate. Uvula midline. Airway patent. NECK: Trachea midline. Supple, nontender, no meningeal signs. CARDIOVASCULAR: Regular rate and rhythm without murmurs. RESPIRATORY: Occ wheezes, decreased air entry in bases. basilar crackles posteriorly. GASTROINTESTINAL: Abdomen soft, non-tender, nondistended. MUSCULOSKELETAL: Extremities without clubbing, cyanosis, or edema. No joint tenderness, effusion, or edema noted. No calf tenderness. Negative Homans sign bilaterally. NEUROLOGICAL: Awake and alert. Non focal exam. Using TV remote. Psych cooperative on vent. Assessment & Plan Remarks Pneumonia present on admission (CAP, Atypical, aspiration PNA) acute resp failure on vent. Hyponatremia on admission Extensive smoking history COPD exacerbation. Recs Continue Azactam IV decrease dose to q12hrs. Continue oral Flagyl Continue oral Azithro stop date in chart. For possible Legionella given Na 124 on admission. d/w Gardenia Wiley MD Apr 20, 2017 09:53
[2017-04-20 10:46] LABS: AUTOMATED NEUTROPHIL # 5.8 TH/MM3 (1.8-7.7); BASOPHIL % 0.4 % (0.0-2.0); EOSINOPHIL # 0.1 TH/MM3 (0-0.4); EOSINOPHIL % 1.3 % (0.0-4.0); HEMOGLOBIN 9.6 GM/DL (11.6-15.3); LYMPH % 12.4 % (9.0-44.0); LYMPHOCYTE # 0.9 TH/MM3 (1.0-4.8); MEAN CORPUSCULAR HEMOGLOBIN 33.6 PG (27.0-34.0); MEAN CORPUSCULAR HGB CONC 34.3 % (32.0-36.0); MEAN PLATELET VOLUME 6.6 FL (7.0-11.0); MONO % 8.4 % (0.0-8.0); MONOCYTE # 0.6 TH/MM3 (0-0.9); NEUT % 77.5 % (16.0-70.0); PLATELET COUNT 444 TH/MM3 (150-450); RED BLOOD COUNT 2.86 MIL/MM3 (4.00-5.30); RED CELL DISTRIBUTION WIDTH 13.7 % (11.6-17.2); WHITE BLOOD COUNT 7.5 TH/MM3 (4.0-11.0)
--- NOTE | 2017-04-20 11:01 | HHI.CCPN ---
Subjective Remarks/Hospital Course This is a 66-year-old female. Data admission 04/13/2017. Date of consultation 04/16/2017. Past medical history includes dyslipidemia, hypothyroidism and depression.visual illness symptoms onset occurred at the beginning of April. She seen at the [facility] for febrile illness. She received azithromycin, Tessalon Perles and ondansetron. She came to have fevers chills. Upon presentation to the ED on 04/13 patient's studies. Hypoxic and placed on nonrebreather mask. CULTURES were negative. The hospitalist and patient had a "seizure activity". She has intermittent confusion receiving levofloxacin. She has been seen in consultation by neurology. She is currently on levetiracetam from neurology standpoint. Workup including EEG and MRI brain essentially within normal limits. Today, pulmonology evaluated patient to be With rapid shallow breathing. Patient has received lorazepam and haloperidol within the past 24 hours due to "agitation". No seizure activity noted. Upon arrival to the ICU, patient was reread was in the 40s. Elective intubation. Central line placement. 04/18/17: Remains intubated. All sedation except follows commands. Chest x-ray is essentially unchanged. Cultures remain negative. Tomas-Synephrine on hold. Hemodynamically remaining stable 04/19/17: Remains intubated off sedation follows commands. Tolerating CPAP but ABGs shows persistent hypoxia and chest x-ray shows bilateral basilar effusions and consolidation. Plan for bedside US and drainage of effusion if large enough prior to extubation 04/20/17: Patient is intubated but off sedation wide-awake. Chest x-ray shows improving bilateral infiltrates. Urine output 4.5 L in 24 hours. Tachycardic. We will attempt CPAP 8 over 5 with possible extubation Objective Vital Signs Date Time Temp Pulse Resp B/P (MAP) Pulse Ox O2 Delivery O2 Flow Rate FiO2 04/20/17 10:34 95 40 04/20/17 06:00 65 04/20/17 04:00 99.1 18 114/60 (78) 04/18/17 19:46 Ventilator 04/16/17 12:00 3.00 Intake and Output 04/20/17 04/20/17 04/20/17 07:59 15:59 23:59 Intake Total 766 ml 206 ml Output Total 1100 ml 1700 ml Balance -334 ml -1494 ml Result Diagram: 1/17/18 0745 04/18/17 0323 Other Results Microbiology Date/Time Source Procedure Growth Status 04/17/17 12:30 Urine Clean Catch Urine Culture - Final NO GROWTH IN 48 HOURS. Complete Laboratory Tests Test 04/19/17 11:10 Blood Gas Puncture Site LT RADIAL Blood Gas Patient Temperature 98.6 Blood Gas HCO3 32 mmol/L (22-26) Blood Gas Base Excess 7.0 mmol/L (-2-2) Blood Gas Oxygen Saturation 88 % (90-100) Arterial Blood pH 7.42 (7.380-7.420) Arterial Blood Partial Pressure CO2 50 mmHg (38-42) Arterial Blood Partial Pressure O2 62 mmHg (61-120) Arterial Blood Oxygen Content 13.7 Vol % (12.0-20.0) Arterial Blood Carboxyhemoglobin 0.8 % (0-4) Arterial Blood Methemoglobin 0.9 % (0-2) Blood Gas Hemoglobin 11.0 G/DL (12.0-16.0) Oxygen Delivery Device VENTILATOR Blood Gas Ventilator Setting [id number] Blood Gas Inspired Oxygen 40 % Imaging Last Impressions Chest X-Ray 04/16/17 0000 Signed Impressions: Service Date/Time: Sunday, April 16, 2017 15:59 - CONCLUSION: 1. Worsening bibasilar consolidation. 2. Endotracheal tube tip is 1.5 cm above the hero. 3. Right IJ central venous catheter has its tip at the atriocaval junction. No pneumothorax. Cornell Anna MD Chest CT 04/16/17 0000 Signed Impressions: Service Date/Time: Sunday, April 16, 2017 21:02 - CONCLUSION: Small effusions and basilar predominant pneumonia on both sides. Endotracheal tube tip is less than a centimeter above the hero. Cornell Anna MD Head CT 04/15/17 0000 Signed Impressions: Service Date/Time: Saturday, April 15, 2017 12:01 - CONCLUSION: No acute intracranial process Cornell Tierney MD Brain MRI 04/15/17 0000 Signed Impressions: Service Date/Time: Saturday, April 15, 2017 18:01 - CONCLUSION: No acute intracranial findings. Bilateral ethmoid and maxillary sinus disease. Air- fluid level in the right maxillary sinus suggests acute sinusitis. Bernardo Cook MD Lung Scan- Nuclear Medicine 04/13/17 1630 Signed Impressions: Service Date/Time: Thursday, April 13, 2017 17:36 - CONCLUSION: Some air trapping in the right lung base. No significant perfusion defects are noted. No significant evidence of pulmonary embolism. Akash Long MD Objective Remarks GENERAL: 66-year-old female critically ill currently orotracheally intubated SKIN: Warm and dry. Well perfused HEAD: Atraumatic. Normocephalic. EYES: Pupils equal and round about 3 millimeters bilaterally and reactive. No scleral icterus. ENT: No nasal bleeding or discharge. Mucous membranes pink and moist. NECK: Trachea midline. No JVD. Right IJ is clean dry and intact CARDIOVASCULAR: RR. S1, S2 no S4. Without murmur RESPIRATORY: Coarse crackles appreciated bilateral lower lobes. No expiratory wheeze. GASTROINTESTINAL: Abdomen soft, non-tender, nondistended. Hypoactive bowel sounds MUSCULOSKELETAL: Extremities without significant peripheral edema. No obvious deformities. NEUROLOGICAL: Arousable on the ventilator and follows commands in all 4 extremities. Strength appears equal and symmetric. Nonfocal. Procedures none Date of Insertion: Apr 16, 2017 Line: Central Venous Catheter Side: Right Location: Internal, Jugular A/P Assessment and Plan Neuro/Psych: Acute toxic metabolic encephalopathy Seizure? Depression NOS Currently on sedation hold, follows commands Goal of RASS -1, Daily sedation vacation MRI brain revealed bilateral ethmoid and maxillary sinusitis with acute component of right maxillary sinusitis CT brain revealed no acute intracranial findings EEG revealed no epileptiform activity Evaluated by Dr. Lew/neurology. Currently on levetiracetam 500 mg ng twice a day Acetaminophen 650 mg by tube every 6 hours when necessary fever Currently on sertraline 50 mg daily Written for as needed haloperidol 1 mg IV every 8 hours and lorazepam 0.5 mg every 6 hours when necessary agitation CV: Hypotension Sinus tachycardia Severe sepsis IV Lasix 40 mg every 12 IV with IV albumin Tomas-Synephrine to keep map above 65 if needed IV Lopressor 2.5 mg x1. 2-D echocardiogram revealed normal LV systolic function. Bilateral atrial enlargement. PAP 41 mmHg. Not requiring antihypertensives and/or vasopressors at the present time Currently on pravastatin 40 mg by mouth daily/hospital substitution for medication rosuvastatin 20 mg by mouth daily Resp: Acute hypoxic hypercapnic respiratory failure History of prior tobaccoism Community-acquired pneumonia PRV 14/500/1.3/40. CPAP 11/06 for possible extubation Ventilator bundle, Albuterol/ipratropium aerosols every 6 hours with albuterol aerosols every 2 hours. Dyspnea Chest x-ray improving bilateral infiltrate CT thorax without contrast 04/16 revealed bilateral lower lobe infiltrates. VQ scan low probability GI: Hypoalbuminemia NGT placement. Continue Jevity 1.5 goal 45 cc an hour Lansoprazole 30 mg daily for GI prophylaxis Docusate sodium/senna 1 tablet twice a day for bowel regimen Metoclopramide 5 mg 3 times a day for bowel motility : Carlos catheter will be placed for accurate I's and O's in a critically ill patient IV Lasix as above Endo: Hypothyroidism SSI with Novulin R with Accu-Cheks every 6 hours to maintain euglycemia/low regimen Continue levothyroxine 88 g daily. TSH 1.17 on admission Renal: Creatinine currently within normal limits Monitor urine output Accurate I's and O's IV Lasix as above Heme: Elevated PTT Leukocytosis Normocytic anemia Monitor CBC daily. Follow trends ID: Community-acquired pneumonia Right maxillary sinusitis Currently on vancomycin, aztreonam and metronidazole Oral Azithromycin started by ID /04/13 blood cultures 2, urine Legionella pneumococcal antigen and influenza and urine cultures all no growth Sputum culture -follow up MSK: PT evaluate and treat FEN: Hypokalemia Replace electrolytes per ICU electrolyte protocol. Access - Left IJ CVL day 5 placed 04/16 Prophylaxis - GI - lansoprazole - DVT - SCD/enoxaparin Critical Care: CCT 30 Cece Sarabia MD Apr 20, 2017 11:01
[2017-04-20] MEDS: AZTREONAM INJ 2,000 MG in SODIUM CHLORIDE 0.9% INJ 100 ML IV SCH ×2 (11:10→21:06)
[2017-04-20 11:16] LABS: BICARBONATE 31.7 MEQ/L (21.0-32.0); CALCIUM 8.8 MG/DL (8.5-10.1); CREATININE 0.44 MG/DL (0.50-1.00)
[2017-04-20 11:34] LABS: BANDS 21 % (0-6); LYMPHOCYTES 6 % (9-44); METAMYELOCYTES 3 % (0-1); MONOCYTES 7 % (0-8); MYELOCYTES 1 % (0-0); NEUTROPHIL # MANUAL DIFF 6.2 TH/MM3 (1.8-7.7); POLYS (SEG NEUTROPHILS) 58 % (16-70)
[2017-04-20] MEDS ORDERED: METOPROLOL TARTRATE 5 MG/5 ML VIAL IV PUSH ONE (11:45)
[2017-04-20] MEDS: ENOXAPARIN SODIUM 40 MG/0.4 ML SYRINGE SQ SCH (17:03)
--- NOTE | 2017-04-20 18:23 | HHI.PR ---
Subjective Remarks Extubated On Nasal cannula C/O hoaseness of voice Diureased 4 L Off pressors Diureasing Objective Vital Signs Vital Signs Date Time Temp Pulse Resp B/P (MAP) Pulse Ox O2 Delivery O2 Flow Rate FiO2 04/20/17 18:00 89 04/20/17 16:00 102 04/20/17 16:00 98.6 102 23 109/55 (73) 95 04/20/17 14:00 96 04/20/17 12:00 98.7 116 18 103/56 (72) 95 04/20/17 12:00 116 04/20/17 11:42 95 Nasal Cannula 3.00 04/20/17 11:42 95 Nasal Cannula 3 04/20/17 10:34 95 40 04/20/17 10:00 122 04/20/17 08:19 94 40 04/20/17 08:19 Nasal Cannula 40 04/20/17 08:00 107 04/20/17 08:00 98.8 107 20 98/56 (70) 95 04/20/17 06:00 65 04/20/17 04:00 99.1 72 18 114/60 (78) 98 04/20/17 04:00 72 04/20/17 04:00 40 04/20/17 03:19 99 40 04/20/17 02:00 56 04/20/17 00:04 98 40 04/20/17 00:00 65 04/20/17 00:00 99.2 65 14 129/62 (84) 99 04/20/17 00:00 40 04/19/17 23:15 57 152/71 04/19/17 22:00 72 04/19/17 21:00 92 99/55 04/19/17 20:00 81 04/19/17 20:00 40 04/19/17 20:00 99.4 81 14 146/74 (98) 96 04/19/17 19:42 100 40 I/O 04/19/17 04/19/17 04/19/17 04/20/17 04/20/17 04/20/17 07:00 15:00 23:00 07:00 15:00 23:00 Intake Total 1783 ml 712 ml 928 ml 668 ml 454 ml 60 ml Output Total 1250 ml 1700 ml 1625 ml 1100 ml 1700 ml 1001 ml Balance 533 ml -988 ml -697 ml -432 ml -1246 ml -941 ml Intake Oral 0 ml IV Total 1228 ml 315 ml 355 ml 250 ml 335 ml Tube Feeding 495 ml 217 ml 273 ml 218 ml 119 ml Tube Irrigant 60 ml Other 180 ml 300 ml 200 ml 60 ml Output Urine Total 1250 ml 1700 ml 1625 ml 1100 ml 1700 ml 1000 ml Stool Total 0 ml 1 ml # Bowel Movements 0 2 Result Diagram: 04/20/1745 04/20/17744 Objective Remarks GENERAL: Patient is 66 yo intubated and sedated SKIN: Warm and dry. HEAD: Normocephalic. EYES: No scleral icterus. No injection or drainage. NECK: Supple, trachea midline. No JVD or lymphadenopathy. Orally intubated CARDIOVASCULAR: Regular rate and rhythm without murmurs, gallops, or rubs. RESPIRATORY: Breath sounds equal bilaterally. No accessory muscle use. GASTROINTESTINAL: Abdomen soft, non-tender, nondistended. MUSCULOSKELETAL: No cyanosis, or edema. BACK: Nontender without obvious deformity. No CVA tenderness. Neuro: Intubated A/P Assessment and Plan 1)VDRF, s/p extubation / 2)Pneumonia 3)Encephalopathy--improved 4)Sz 5)depression 6)Hypothyroidism PLAN: Supplement . Continue with abx (Aztreonam, Vanco, Flagyl) follow up on BC and sputum cx from 04/16: NGTD Strep pneumonia, Legionella urinary Ag and Influenza all negative. Monitor neuro status- On keppra. Neuro is following Diurease Mihai Peng MD Apr 20, 2017 18:23
[2017-04-21] VITALS (21 sets, daily range): BP systolic 95–110; BP diastolic 52–58; PULSE 72–111; RESP 15–30; TEMP 97.8–100.1; O2SAT 93–100
[2017-04-21] MEDS: metroNIDAZOLE 500 MG TAB PO SCH ×4 (05:50→22:16)
[2017-04-21] MEDS: METOCLOPRAMIDE HCL 10 MG/2 ML VIAL IV PUSH SCH ×3 (05:50→22:16)
[2017-04-21] MEDS: ARTIFICIAL TEARS OPTH SOLN 15 ML BTL EACH EYE SCH ×3 (05:50→22:17)
[2017-04-21] MEDS: LEVOTHYROXINE SODIUM 88 MCG TAB PO SCH (05:50)
[2017-04-21] MEDS: INSULIN NovoLIN REGULAR SUPPLEMENTAL SCALE SQ SCH ×4 (05:50→17:38)
[2017-04-21] MEDS: RESP: ALBUTEROL 2.5 MG/IPRATROPIUM 0.5 MG NEB (SCH) INH ×4 (07:48→19:43)
[2017-04-21] MEDS: RESP: BUDESONIDE 0.5 MG/2 ML NEB NEB SCH ×2 (07:48→19:43)
[2017-04-21] MEDS: CHLORHEXIDINE 0.12% (ORAL KIT) 15 ML CUP MT SCH ×2 (08:00→20:00)
--- NOTE | 2017-04-21 08:26 | HHI.CCPN ---
Subjective Remarks/Hospital Course This is a 66-year-old female. Data admission 04/13/2017. Date of consultation 04/16/2017. Past medical history includes dyslipidemia, hypothyroidism and depression.visual illness symptoms onset occurred at the beginning of April. [facility]. She received azithromycin, Tessalon Perles and ondansetron. She came to have fevers chills. Upon presentation to the ED on 04/13 patient's studies. Hypoxic and placed on nonrebreather mask. CULTURES were negative. The hospitalist and patient had a "seizure activity". She has intermittent confusion receiving levofloxacin. She has been seen in consultation by neurology. She is currently on levetiracetam from neurology standpoint. Workup including EEG and MRI brain essentially within normal limits. Today, pulmonology evaluated patient to be With rapid shallow breathing. Patient has received lorazepam and haloperidol within the past 24 hours due to "agitation". No seizure activity noted. Upon arrival to the ICU, patient was reread was in the 40s. Elective intubation. Central line placement. 04/18/17: Remains intubated. All sedation except follows commands. Chest x-ray is essentially unchanged. Cultures remain negative. Tomas-Synephrine on hold. Hemodynamically remaining stable 04/19/17: Remains intubated off sedation follows commands. Tolerating CPAP but ABGs shows persistent hypoxia and chest x-ray shows bilateral basilar effusions and consolidation. Plan for bedside US and drainage of effusion if large enough prior to extubation 04/20/17: Patient is intubated but off sedation wide-awake. Chest x-ray shows improving bilateral infiltrates. Urine output 4.5 L in 24 hours. Tachycardic. We will attempt CPAP 8 over 5 with possible extubation 04/21/17: Extubated yesterday tolerating well. Urine output excellent with Lasix. Breathing comfortably. Chest x-ray today is pending Objective Vital Signs Date Time Temp Pulse Resp B/P (MAP) Pulse Ox O2 Delivery O2 Flow Rate FiO2 04/21/17 07:49 98 Nasal Cannula 2.00 04/21/17 06:00 73 04/21/17 04:00 98.5 15 103/56 (72) 04/20/17 10:34 40 Intake and Output 04/21/17 04/21/17 04/22/17 08:00 16:00 00:00 Output Total 550 ml Balance -550 ml Result Diagram: 04/20/17 0745 04/20/17 0745 Other Results Laboratory Tests Test 04/20/17 11:28 Blood Gas Puncture Site RT RADIAL Blood Gas Patient Temperature 98.6 Blood Gas HCO3 33 mmol/L (22-26) Blood Gas Base Excess 8.1 mmol/L (-2-2) Blood Gas Oxygen Saturation 95 % (90-100) Arterial Blood pH 7.40 (7.380-7.420) Arterial Blood Partial Pressure CO2 54 mmHg (38-42) Arterial Blood Partial Pressure O2 91 mmHg (61-120) Arterial Blood Oxygen Content 21.6 Vol % (12.0-20.0) Arterial Blood Carboxyhemoglobin 0.5 % (0-4) Arterial Blood Methemoglobin 1.0 % (0-2) Blood Gas Hemoglobin 16.2 G/DL (12.0-16.0) Oxygen Delivery Device VENTILATOR Blood Gas Ventilator Setting CPAP/[id number] Blood Gas Inspired Oxygen 40 % Imaging Last Impressions Chest X-Ray 04/16/17 0000 Signed Impressions: Service Date/Time: Sunday, April 16, 2017 15:59 - CONCLUSION: 1. Worsening bibasilar consolidation. 2. Endotracheal tube tip is 1.5 cm above the hero. 3. Right IJ central venous catheter has its tip at the atriocaval junction. No pneumothorax. Cornell Anna MD Chest CT 04/16/17 0000 Signed Impressions: Service Date/Time: Sunday, April 16, 2017 21:02 - CONCLUSION: Small effusions and basilar predominant pneumonia on both sides. Endotracheal tube tip is less than a centimeter above the hero. Cornell Anna MD Head CT 04/15/17 0000 Signed Impressions: Service Date/Time: Saturday, April 15, 2017 12:01 - CONCLUSION: No acute intracranial process Cornell Tierney MD Brain MRI 04/15/17 0000 Signed Impressions: Service Date/Time: Saturday, April 15, 2017 18:01 - CONCLUSION: No acute intracranial findings. Bilateral ethmoid and maxillary sinus disease. Air- fluid level in the right maxillary sinus suggests acute sinusitis. Bernardo Cook MD Lung Scan- Nuclear Medicine 04/13/17 1630 Signed Impressions: Service Date/Time: Thursday, April 13, 2017 17:36 - CONCLUSION: Some air trapping in the right lung base. No significant perfusion defects are noted. No significant evidence of pulmonary embolism. Akash Long MD Objective Remarks GENERAL: 66-year-old female on NC SKIN: Warm and dry. Well perfused HEAD: Atraumatic. Normocephalic. EYES: Pupils equal and round about 3 millimeters bilaterally and reactive. No scleral icterus. ENT: No nasal bleeding or discharge. Mucous membranes pink and moist. NECK: Trachea midline. No JVD. CARDIOVASCULAR: RR. S1, S2 no S4. Without murmur RESPIRATORY: Coarse crackles appreciated bilateral lower lobes. No wheeze. GASTROINTESTINAL: Abdomen soft, non-tender, nondistended. Hypoactive bowel sounds MUSCULOSKELETAL: Extremities without significant peripheral edema. No obvious deformities. NEUROLOGICAL: Alert awake oriented 3. Nonfocal deficits Procedures none Date of Insertion: Apr 16, 2017 Line: Central Venous Catheter Side: Right Location: Internal, Jugular A/P Assessment and Plan Neuro/Psych: Acute toxic metabolic encephalopathy Seizure? Depression NOS Currently on sedation hold, follows commands Goal of RASS -1, Daily sedation vacation MRI brain revealed bilateral ethmoid and maxillary sinusitis with acute component of right maxillary sinusitis CT brain revealed no acute intracranial findings EEG revealed no epileptiform activity Evaluated by Dr. Lew/neurology. Currently on levetiracetam 500 mg ng twice a day Acetaminophen 650 mg by tube every 6 hours when necessary fever Currently on sertraline 50 mg daily Written for as needed haloperidol 1 mg IV every 8 hours and lorazepam 0.5 mg every 6 hours when necessary agitation-DC 04/21 CV: Hypotension-resolved Sinus tachycardia Severe sepsis IV Lasix 40 mg every 12 IV with IV albumin- DC albumin and change lasix to po 20 mg q12 for 2 more days from 04/21 2-D echocardiogram revealed normal LV systolic function. Bilateral atrial enlargement. PAP 41 mmHg. Not requiring antihypertensives and/or vasopressors at the present time Currently on pravastatin 40 mg by mouth daily/hospital substitution for medication rosuvastatin 20 mg by mouth daily Resp: Acute hypoxic hypercapnic respiratory failure History of prior tobaccoism Community-acquired pneumonia Extubated 04/20, tolerating well Albuterol/ipratropium aerosols every 6 hours with albuterol aerosols every 2 hours. Dyspnea Chest x-ray improving bilateral infiltrate CT thorax without contrast 04/16 revealed bilateral lower lobe infiltrates. VQ scan low probability GI: Hypoalbuminemia Speech for swallow eval Lansoprazole 30 mg daily for GI prophylaxis Docusate sodium/senna 1 tablet twice a day for bowel regimen Metoclopramide 5 mg 3 times a day for bowel motility : Carlos catheter will be placed for accurate I's and O's in a critically ill patient-DC today Lasix as above Endo: Hypothyroidism SSI with Novulin R with Accu-Cheks every 6 hours to maintain euglycemia/low regimen Continue levothyroxine 88 g daily. TSH 1.17 on admission Renal: Creatinine currently within normal limits Monitor urine output Accurate I's and O's Lasix as above Heme: Elevated PTT Leukocytosis Normocytic anemia Monitor CBC daily. Follow trends ID: Community-acquired pneumonia Right maxillary sinusitis Currently on Azithromycin, aztreonam and metronidazole (Oral Azithromycin started by ID ) 04/13 blood cultures 2, urine Legionella pneumococcal antigen and influenza and urine cultures all no growth Sputum culture -follow up MSK: PT evaluate and treat, OOB FEN: Hypokalemia Replace electrolytes per ICU electrolyte protocol. Access - Left IJ CVL day 5 placed 04/16-DCd 04/20 Prophylaxis - GI - lansoprazole - DVT - SCD/enoxaparin Critical Care: Level 3 Continue ICU care for now. If remaining stable transfer to Med/Surg in the afternoon Cece Sarabia MD Apr 21, 2017 08:26
[2017-04-21] MEDS: LACTOBACILLUS ACIDOPHILUS TAB PO SCH ×2 (08:55→20:48)
[2017-04-21] MEDS: FUROSEMIDE 20 MG TAB PO SCH ×2 (08:55→17:38)
[2017-04-21] MEDS: ATORVASTATIN 40 MG TAB PO SCH (08:55)
[2017-04-21] MEDS: LANSOPRAZOLE SOLUTAB 30 MG TAB NG SCH (08:55)
[2017-04-21] MEDS: DOCUSATE SODIUM 50 MG/SENNA 8.6 MG TAB PO SCH ×2 (08:55→20:48)
[2017-04-21] MEDS: POTASSIUM CHLORIDE 25 MEQ EFFERVESCENT TAB PO SCH (08:55)
[2017-04-21] MEDS: AZTREONAM INJ 2,000 MG in SODIUM CHLORIDE 0.9% INJ 100 ML IV SCH ×2 (08:56→22:16)
[2017-04-21] MEDS: SERTRALINE HCL 50 MG TAB PO SCH (08:56)
[2017-04-21] MEDS: levETIRAcetam 500 MG/5 ML UDC NG SCH ×2 (08:56→20:48)
[2017-04-21] MEDS: AZITHROMYCIN 250 MG TAB PO SCH (08:56)
[2017-04-21] MEDS: SODIUM CHLORIDE 0.9% FLUSH 10 ML FLUSH IV FLUSH SCH ×3 (08:57→20:48)
--- NOTE | 2017-04-21 09:06 | RADRPT ---
EXAM DATE/TIME: 04/21/2017 08:16 [facility] COMPARISON: CHEST SINGLE AP, April 20, 2017, 8:17. INDICATIONS : Evaluate for respiratory disease. MEDICAL HISTORY : Osteoarthritis. Hypertension. Hypothyroidism. SURGICAL HISTORY : Hysterectomy. ENCOUNTER: Subsequent ACUITY: 1 week PAIN SCORE: 0/10 LOCATION: Bilateral chest FINDINGS: A single view of the chest demonstrates bilateral infiltrates right greater than left. Upper lungs ar e clear. The cardiomediastinal contours are unremarkable. Osseous structures are intact. CONCLUSION: Stable bilateral lower lobe infiltrates. Akash Long MD on April 21, 2017 at 9:03 Board Certified Radiologist. This report was verified electronically.
--- NOTE | 2017-04-21 15:04 | HHI.PR ---
Subjective Remarks Extubated On Nasal cannula C/O hoaseness of voice Diureased 4 L Started PO, tolerates pureed diet Objective Vital Signs Vital Signs Date Time Temp Pulse Resp B/P (MAP) Pulse Ox O2 Delivery O2 Flow Rate FiO2 04/21/17 14:00 95 04/21/17 12:00 100.1 97 29 96/55 (69) 96 04/21/17 12:00 97 04/21/17 11:00 95 24 106/55 (72) 97 04/21/17 10:00 96 27 105/52 (69) 93 04/21/17 10:00 96 04/21/17 09:00 96 27 109/53 (71) 96 04/21/17 08:00 98.0 80 17 104/58 (73) 100 04/21/17 08:00 80 04/21/17 07:49 98 Nasal Cannula 2.00 04/21/17 07:00 75 20 104/56 (72) 98 04/21/17 06:00 73 24 103/56 (72) 99 04/21/17 06:00 73 04/21/17 05:00 74 29 104/56 (72) 98 04/21/17 04:00 98.5 72 15 103/56 (72) 99 04/21/17 04:00 72 04/21/17 02:00 74 04/21/17 00:00 74 04/21/17 00:00 97.8 74 30 101/57 (72) 98 04/20/17 22:00 84 04/20/17 20:00 98.5 104 15 101/59 (73) 97 04/20/17 20:00 104 04/20/17 19:35 97 Nasal Cannula 2.00 04/20/17 18:00 89 04/20/17 16:00 102 04/20/17 16:00 98.6 102 23 109/55 (73) 95 I/O 04/20/17 04/20/17 04/20/17 04/21/17 04/21/17 04/21/17 06:59 14:59 22:59 06:59 14:59 22:59 Intake Total 668 ml 304 ml 310 ml 50 ml Output Total 1100 ml 1700 ml 1001 ml 550 ml Balance -432 ml -1396 ml -691 ml -500 ml Intake Oral 0 ml IV Total 250 ml 185 ml 250 ml 50 ml Tube Feeding 218 ml 119 ml Other 200 ml 60 ml Output Urine Total 1100 ml 1700 ml 1000 ml 550 ml Stool Total 1 ml # Bowel Movements 0 2 1 Result Diagram: 04/20/17 0745 04/20/17 0745 Objective Remarks GENERAL: Patient is 66 yo intubated and sedated SKIN: Warm and dry. HEAD: Normocephalic. EYES: No scleral icterus. No injection or drainage. NECK: Supple, trachea midline. No JVD or lymphadenopathy. Orally intubated CARDIOVASCULAR: Regular rate and rhythm without murmurs, gallops, or rubs. RESPIRATORY: Breath sounds equal bilaterally. No accessory muscle use. GASTROINTESTINAL: Abdomen soft, non-tender, nondistended. MUSCULOSKELETAL: No cyanosis, or edema. BACK: Nontender without obvious deformity. No CVA tenderness. Neuro: Intubated A/P Assessment and Plan 1)VDRF, s/p extubation / 2)Pneumonia 3)Encephalopathy--improved 4)Sz 5)depression 6)Hypothyroidism PLAN: Supplement . Continue with abx (Aztreonam, Vanco, Flagyl) follow up on BC and sputum cx from 04/16: NGTD Strep pneumonia, Legionella urinary Ag and Influenza all negative. Monitor neuro status- On keppra. Neuro is following Diurease Encourage Mihai Ware MD Apr 21, 2017 15:04
[2017-04-21] MEDS: ENOXAPARIN SODIUM 40 MG/0.4 ML SYRINGE SQ SCH (17:38)
[2017-04-22] VITALS (19 sets, daily range): BP systolic 93–113; BP diastolic 50–62; PULSE 74–115; RESP 16–37; TEMP 98.5–99.3; O2SAT 91–100
[2017-04-22] MEDS: INSULIN NovoLIN REGULAR SUPPLEMENTAL SCALE SQ SCH ×5 (06:00→23:27)
[2017-04-22] MEDS: LEVOTHYROXINE SODIUM 88 MCG TAB PO SCH (06:18)
[2017-04-22] MEDS: metroNIDAZOLE 500 MG TAB PO SCH ×4 (06:18→23:18)
[2017-04-22] MEDS: METOCLOPRAMIDE HCL 10 MG/2 ML VIAL IV PUSH SCH ×3 (06:19→21:52)
[2017-04-22] MEDS: ARTIFICIAL TEARS OPTH SOLN 15 ML BTL EACH EYE SCH ×3 (06:19→21:51)
[2017-04-22] MEDS: SODIUM CHLORIDE 0.9% FLUSH 10 ML FLUSH IV FLUSH SCH ×3 (07:56→20:17)
[2017-04-22] MEDS: DOCUSATE SODIUM 50 MG/SENNA 8.6 MG TAB PO SCH ×2 (07:57→20:17)
[2017-04-22] MEDS: CHLORHEXIDINE 0.12% (ORAL KIT) 15 ML CUP MT SCH ×2 (07:58→19:17)
[2017-04-22] MEDS: RESP: ALBUTEROL 2.5 MG/IPRATROPIUM 0.5 MG NEB (SCH) INH ×4 (08:06→19:52)
[2017-04-22] MEDS: RESP: BUDESONIDE 0.5 MG/2 ML NEB NEB SCH ×2 (08:06→19:52)
[2017-04-22 08:09] LABS: ALKALINE PHOSPHATASE 69 U/L (45-117); TOTAL BILIRUBIN ADULT 0.4 MG/DL (0.2-1.0)
[2017-04-22 08:14] LABS: ALT (GPT) 76 U/L (10-53); AST (GOT) 92 U/L (15-37); BICARBONATE 31.9 MEQ/L (21.0-32.0); BLOOD UREA NITROGEN 15 MG/DL (7-18); CALCIUM 8.7 MG/DL (8.5-10.1); CHLORIDE 102 MEQ/L (98-107); CREATININE 0.36 MG/DL (0.50-1.00); GLOMERULAR FILTRATION RATE 181 ML/MIN (>89); GLUCOSE,RANDOM 110 MG/DL (74-106); MAGNESIUM 2.5 MG/DL (1.5-2.5); SODIUM (NA) 140 MEQ/L (136-145)
[2017-04-22] MEDS: AZTREONAM INJ 2,000 MG in SODIUM CHLORIDE 0.9% INJ 100 ML IV SCH ×2 (08:26→21:52)
[2017-04-22] MEDS: SERTRALINE HCL 50 MG TAB PO SCH (08:27)
[2017-04-22] MEDS: levETIRAcetam 500 MG/5 ML UDC NG SCH ×2 (08:28→20:17)
[2017-04-22] MEDS: POTASSIUM CHLORIDE 25 MEQ EFFERVESCENT TAB PO SCH (08:28)
[2017-04-22] MEDS: FUROSEMIDE 20 MG TAB PO SCH ×2 (08:28→17:40)
[2017-04-22] MEDS: AZITHROMYCIN 250 MG TAB PO SCH (08:28)
[2017-04-22] MEDS: ATORVASTATIN 40 MG TAB PO SCH (08:28)
[2017-04-22] MEDS: LANSOPRAZOLE SOLUTAB 30 MG TAB NG SCH (08:29)
[2017-04-22] MEDS: LACTOBACILLUS ACIDOPHILUS TAB PO SCH ×2 (08:37→20:17)
[2017-04-22 08:42] LABS: AUTOMATED NEUTROPHIL # 5.6 TH/MM3 (1.8-7.7); BASOPHIL # 0.1 TH/MM3 (0-0.2); BASOPHIL % 0.8 % (0.0-2.0); EOSINOPHIL # 0.1 TH/MM3 (0-0.4); EOSINOPHIL % 0.8 % (0.0-4.0); HEMATOCRIT 30.4 % (35.0-46.0); HEMOGLOBIN 10.2 GM/DL (11.6-15.3); LYMPH % 12.6 % (9.0-44.0); LYMPHOCYTE # 0.9 TH/MM3 (1.0-4.8); MEAN CELL VOLUME 98.2 FL (80.0-100.0); MEAN CORPUSCULAR HGB CONC 33.6 % (32.0-36.0); MEAN PLATELET VOLUME 6.8 FL (7.0-11.0); MONO % 4.5 % (0.0-8.0); MONOCYTE # 0.3 TH/MM3 (0-0.9); NEUT % 81.3 % (16.0-70.0); PLATELET COUNT 492 TH/MM3 (150-450); RED BLOOD COUNT 3.09 MIL/MM3 (4.00-5.30); RED CELL DISTRIBUTION WIDTH 13.7 % (11.6-17.2); WHITE BLOOD COUNT 6.9 TH/MM3 (4.0-11.0)
--- NOTE | 2017-04-22 10:08 | HHI.IDPN ---
Subjective Subjective Remarks is a 66 y/o CF with PMHx of dyslipidemia, hypothyroidism, depression, 40 pack year smoking history but no COPD diagnosis on record. Patient seen at [facility] ED 04/10/2017 per records for febrile illness. She recd Azithro, Zofran and Tessalon pearls. She represented to the ED at [place] on 04/13/2017 with O2 sats 64% on RA by EMS. No h/o CHF,but extensive smoking history in past , with continued passive exposure to smoke by smoking habit for additional 10 years. She reported to Arsalan CHAUDHRY that she was sleeping on a recliner due to shortness of breath. No pedal edema or weight gain reported on admission. Reported h/o nausea but no vomiting or aspiration like events. There is no no recent travels out of country or prolonged travels. Patient was admitted to floor and hospitalist noted a ? "seizure activity". She had intermittent confusion receiving levofloxacin. She was seen in consultation by neurology. She is currently on levetiracetam from neurology standpoint. Workup including EEG and MRI brain essentially within normal limits. While on floor she was evaluated for rapid shallow breathing. Patient has received lorazepam and haloperidol within the past 24 hours due to "agitation". No seizure activity noted. Patient was transferred to the IMC unit and patient was intubated due to ongoing resp distress. All cultures since admission are negative. ID was consulted for evaluation and Mment of Pneumonia in a patient with multiple antibiotic allergies. At the time of my evaluation, patient is in IMC on ventilator. Carlos in place with clear UO. On Neosynephrine 60 mics. Off Diprivan awake uses remote follows commands. Of note her Na on admission was 124. Legionella urine antigen was negative. Overnight events reviewed. No fevers No rash No diarrhea On room air. Not coughing much. Hoarse voice. Antibiotics Aztreonam IV Azithro oral. Flagyl oral. Lines Line sites with no e.o infection Past Medical History Depression Hypothyroidism Dyslipidemia Hysterectomy Allergies: Coded Allergies: amoxicillin (Verified Allergy, Severe, HIVES, THROAT CLOSES, 04/13/17) levofloxacin (Verified Allergy, Severe, Psychosis, 04/16/17) Pt has severe Pstchosis, Hallucinations, & aggitation Penicillins (Verified Allergy, Intermediate, HIVES, THROAT CLOSING, ) licorice (Verified Allergy, Intermediate, HIVES, 04/13/17) pineapple (Verified Allergy, Intermediate, HIVES, 04/13/17) shellfish derived (Verified Allergy, Intermediate, Anaphylaxis, 04/13/17) strawberry (Verified Allergy, Intermediate, HIVES, 04/13/17) Objective . Vital Signs Date Time Temp Pulse Resp B/P (MAP) Pulse Ox O2 Delivery O2 Flow Rate FiO2 04/22/17 08:07 95 04/22/17 06:00 93 04/22/17 04:00 79 04/22/17 04:00 98.9 79 32 110/57 (74) 99 04/22/17 02:00 92 04/22/17 00:00 99.1 84 16 99/54 (69) 98 04/22/17 00:00 84 04/21/17 22:00 91 04/21/17 20:00 99.1 111 29 110/58 (75) 99 04/21/17 20:00 111 04/21/17 19:43 99 Nasal Cannula 2.00 04/21/17 18:00 100 04/21/17 18:00 100 28 102/55 (71) 96 04/21/17 17:00 110 25 97/52 (67) 96 04/21/17 16:00 99.5 95 30 97/54 (68) 96 04/21/17 16:00 95 04/21/17 15:00 104 30 97/54 (68) 96 04/21/17 14:00 95 04/21/17 14:00 95 29 95/54 (68) 96 04/21/17 13:00 101 28 97/53 (68) 95 04/21/17 12:00 100.1 97 29 96/55 (69) 96 04/21/17 12:00 97 04/21/17 11:00 95 24 106/55 (72) 97 . Laboratory Tests Test 04/22/17 07:10 White Blood Count 6.9 TH/MM3 Red Blood Count 3.09 MIL/MM3 Hemoglobin 10.2 GM/DL Hematocrit 30.4 % Mean Corpuscular Volume 98.2 FL Mean Corpuscular Hemoglobin 33.0 PG Mean Corpuscular Hemoglobin Concent 33.6 % Red Cell Distribution Width 13.7 % Platelet Count 492 TH/MM3 Mean Platelet Volume 6.8 FL Neutrophils (%) (Auto) 81.3 % Lymphocytes (%) (Auto) 12.6 % Monocytes (%) (Auto) 4.5 % Eosinophils (%) (Auto) 0.8 % Basophils (%) (Auto) 0.8 % Neutrophils # (Auto) 5.6 TH/MM3 Lymphocytes # (Auto) 0.9 TH/MM3 Monocytes # (Auto) 0.3 TH/MM3 Eosinophils # (Auto) 0.1 TH/MM3 Basophils # (Auto) 0.1 TH/MM3 CBC Comment DIFF FINAL Differential Comment Laboratory Tests Test 04/22/17 07:10 Blood Urea Nitrogen 15 MG/DL Creatinine 0.36 MG/DL Random Glucose 110 MG/DL Total Protein 7.0 GM/DL Albumin 3.0 GM/DL Calcium Level 8.7 MG/DL Magnesium Level 2.5 MG/DL Alkaline Phosphatase 69 U/L Aspartate Amino Transf (AST/SGOT) 92 U/L Alanine Aminotransferase (ALT/SGPT) 76 U/L Total Bilirubin 0.4 MG/DL Sodium Level 140 MEQ/L Potassium Level 4.4 MEQ/L Chloride Level 102 MEQ/L Carbon Dioxide Level 31.9 MEQ/L Anion Gap 6 MEQ/L Estimat Glomerular Filtration Rate 181 ML/MIN Imaging Last Impressions Chest X-Ray 04/20/17 0000 Signed Impressions: Service Date/Time: Thursday, April 20, 2017 08:17 - CONCLUSION: Indistinctness of the hemidiaphragms and some increased density suggesting a combination of pleural effusions and bibasilar atelectasis. Tubes and catheters as above. Akash Long MD Chest CT 04/16/17 0000 Signed Impressions: Service Date/Time: Sunday, April 16, 2017 21:02 - CONCLUSION: Small effusions and basilar predominant pneumonia on both sides. Endotracheal tube tip is less than a centimeter above the hero. Cornell Anna MD Head CT 04/15/17 0000 Signed Impressions: Service Date/Time: Saturday, April 15, 2017 12:01 - CONCLUSION: No acute intracranial process Cornell Tierney MD Brain MRI 04/15/17 0000 Signed Impressions: Service Date/Time: Saturday, April 15, 2017 18:01 - CONCLUSION: No acute intracranial findings. Bilateral ethmoid and maxillary sinus disease. Air- fluid level in the right maxillary sinus suggests acute sinusitis. Bernardo Cook MD Lung Scan-V Nuclear Medicine 04/13/17 1630 Signed Impressions: Service Date/Time: Thursday, April 13, 2017 17:36 - CONCLUSION: Some air trapping in the right lung base. No significant perfusion defects are noted. No significant evidence of pulmonary embolism. Akash Long MD Physical Exam GENERAL: Thin built, fairly well nourished patient, in no apparent distress. SKIN: No rashes, ecchymoses or lesions. Cool and dry. HEAD: Atraumatic. Normocephalic. No temporal or scalp tenderness. EYES: Pupils equal round and reactive. Extraocular motions intact. No scleral icterus. No injection or drainage. ENT: Nose without bleeding, purulent drainage or septal hematoma. Throat without erythema, tonsillar hypertrophy or exudate. Uvula midline. Airway patent. NECK: Trachea midline. Supple, nontender, no meningeal signs. CARDIOVASCULAR: Regular rate and rhythm without murmurs. RESPIRATORY: Occ wheezes, decreased air entry in bases. basilar crackles posteriorly. GASTROINTESTINAL: Abdomen soft, non-tender, nondistended. MUSCULOSKELETAL: Extremities without clubbing, cyanosis, or edema. No joint tenderness, effusion, or edema noted. No calf tenderness. Negative Homans sign bilaterally. NEUROLOGICAL: Awake and alert. Non focal exam. Using TV remote. Psych cooperative on vent. Assessment & Plan Remarks Pneumonia present on admission (CAP, Atypical, aspiration PNA) acute resp failure on vent. Hyponatremia on admission Extensive smoking history COPD exacerbation. Recs Continue Azactam IV decrease dose to q12hrs. Continue oral Flagyl Continue oral Azithro stop date in chart. For possible Legionella given Na 124 on admission. d/w RN If continues to do better over the weekend ok to deescalate to Azithro oral. Follow rheum studies if positive refer to Waste Management Specialist as outpatient. workup for Rheum related pulm conditions. will be available prn this weekend as cross cover. Gardenia Colon MD Apr 22, 2017 10:08
--- NOTE | 2017-04-22 13:08 | HHI.CCPN ---
Subjective Remarks/Hospital Course This is a 66-year-old female. Data admission 04/13/2017. Date of consultation 04/16/2017. Past medical history includes dyslipidemia, hypothyroidism and depression.visual illness symptoms onset occurred at the beginning of April. She seen at the [facility] for febrile illness. She received azithromycin, Tessalon Perles and ondansetron. She came to have fevers chills. Upon presentation to the ED on 04/13 patient's studies. Hypoxic and placed on nonrebreather mask. CULTURES were negative. The hospitalist and patient had a "seizure activity". She has intermittent confusion receiving levofloxacin. She has been seen in consultation by neurology. She is currently on levetiracetam from neurology standpoint. Workup including EEG and MRI brain essentially within normal limits. Today, pulmonology evaluated patient to be With rapid shallow breathing. Patient has received lorazepam and haloperidol within the past 24 hours due to "agitation". No seizure activity noted. Upon arrival to the ICU, patient was reread was in the 40s. Elective intubation. Central line placement. 04/18/17: Remains intubated. All sedation except follows commands. Chest x-ray is essentially unchanged. Cultures remain negative. Tomas-Synephrine on hold. Hemodynamically remaining stable 04/19/17: Remains intubated off sedation follows commands. Tolerating CPAP but ABGs shows persistent hypoxia and chest x-ray shows bilateral basilar effusions and consolidation. Plan for bedside US and drainage of effusion if large enough prior to extubation 04/20/17: Patient is intubated but off sedation wide-awake. Chest x-ray shows improving bilateral infiltrates. Urine output 4.5 L in 24 hours. Tachycardic. We will attempt CPAP 8 over 5 with possible extubation 04/21/17: Extubated yesterday tolerating well. Urine output excellent with Lasix. Breathing comfortably. Chest x-ray today is pending 04/22/17: Sitting up in bed breathing comfortably, slightly tachycardic. Urine output remains adequate. Lasix dose was reduced yesterday Objective Vital Signs Date Time Temp Pulse Resp B/P (MAP) Pulse Ox O2 Delivery O2 Flow Rate FiO2 04/22/17 12:00 107 04/22/17 12:00 99.0 37 93/50 (64) 93 04/21/17 19:43 Nasal Cannula 2.00 04/20/17 10:34 40 Intake and Output 04/22/17 04/22/17 04/23/17 08:00 16:00 00:00 Intake Total 240 ml 100 ml Output Total 250 ml Balance -10 ml 100 ml Result Diagram: 04/22/17 0710 04/22/17 0710 Imaging Last Impressions Chest X-Ray 04/16/17 0000 Signed Impressions: Service Date/Time: Sunday, April 16, 2017 15:59 - CONCLUSION: 1. Worsening bibasilar consolidation. 2. Endotracheal tube tip is 1.5 cm above the hero. 3. Right IJ central venous catheter has its tip at the atriocaval junction. No pneumothorax. Cornell Anna MD Chest CT 04/16/17 0000 Signed Impressions: Service Date/Time: Sunday, April 16, 2017 21:02 - CONCLUSION: Small effusions and basilar predominant pneumonia on both sides. Endotracheal tube tip is less than a centimeter above the hero. Cornell Anna MD Head CT 04/15/17 0000 Signed Impressions: Service Date/Time: Saturday, April 15, 2017 12:01 - CONCLUSION: No acute intracranial process Cornell Tierney MD Brain MRI 04/15/17 0000 Signed Impressions: Service Date/Time: Saturday, April 15, 2017 18:01 - CONCLUSION: No acute intracranial findings. Bilateral ethmoid and maxillary sinus disease. Air- fluid level in the right maxillary sinus suggests acute sinusitis. Bernardo Cook MD Lung Scan- Nuclear Medicine 04/13/17 1630 Signed Impressions: Service Date/Time: Thursday, April 13, 2017 17:36 - CONCLUSION: Some air trapping in the right lung base. No significant perfusion defects are noted. No significant evidence of pulmonary embolism. Akash Long MD Objective Remarks GENERAL: 66-year-old female on [facility] SKIN: Warm and dry. HEAD: Atraumatic. Normocephalic. EYES: Pupils equal and round about 3 millimeters bilaterally and reactive. No scleral icterus. ENT: No nasal bleeding or discharge. Mucous membranes pink and moist. NECK: Trachea midline. No JVD. CARDIOVASCULAR: RR. S1, S2 no S4. Without murmur RESPIRATORY: Few Coarse crackles appreciated bilateral lower lobes. No wheeze. GASTROINTESTINAL: Abdomen soft, non-tender, nondistended. Hypoactive bowel sounds MUSCULOSKELETAL: Extremities without significant peripheral edema. No obvious deformities. NEUROLOGICAL: Alert awake oriented 3. Nonfocal deficits Procedures none Date of Insertion: Apr 16, 2017 Line: Central Venous Catheter Side: Right Location: Internal, Jugular A/P Assessment and Plan Neuro/Psych: Acute toxic metabolic encephalopathy Seizure? Depression NOS MRI brain revealed bilateral ethmoid and maxillary sinusitis with acute component of right maxillary sinusitis CT brain revealed no acute intracranial findings EEG revealed no epileptiform activity Evaluated by Dr. Lew/neurology. Currently on levetiracetam 500 mg ng twice a day Acetaminophen 650 mg by tube every 6 hours when necessary fever Currently on sertraline 50 mg daily CV: Hypotension-resolved Sinus tachycardia Severe sepsis Lasix to po 20 mg q12 for 2 more days from 04/21 2-D echocardiogram revealed normal LV systolic function. Bilateral atrial enlargement. PAP 41 mmHg. Not requiring antihypertensives and/or vasopressors at the present time Currently on pravastatin 40 mg by mouth daily/hospital substitution for medication rosuvastatin 20 mg by mouth daily Resp: Acute hypoxic hypercapnic respiratory failure-resolved History of prior tobaccoism Community-acquired pneumonia Extubated 04/20, tolerating well Albuterol/ipratropium aerosols every 6 hours with albuterol aerosols every 2 hours. Dyspnea Chest x-ray improving bilateral infiltrate CT thorax without contrast 04/16 revealed bilateral lower lobe infiltrates. VQ scan low probability GI: Hypoalbuminemia Speech for swallow eval-diet per rec Lansoprazole 30 mg daily for GI prophylaxis Docusate sodium/senna 1 tablet twice a day for bowel regimen Metoclopramide 5 mg 3 times a day for bowel motility : DCd Carlos Lasix as above Endo: Hypothyroidism SSI with Novulin R with Accu-Cheks every 6 hours to maintain euglycemia/low regimen Continue levothyroxine 88 g daily. TSH 1.17 on admission Renal: Creatinine currently within normal limits Monitor urine output Accurate I's and O's Lasix as above Heme: Elevated PTT Leukocytosis Normocytic anemia Monitor CBC daily. Follow trends ID: Community-acquired pneumonia Right maxillary sinusitis Currently on Azithromycin, aztreonam and metronidazole (Oral Azithromycin started by ID ) 04/13 blood cultures 2, urine Legionella pneumococcal antigen and influenza and urine cultures all no growth Sputum culture -follow up MSK: PT evaluate and treat, OOB FEN: Hypokalemia Replace electrolytes per ICU electrolyte protocol. Access - Left IJ CVL day 5 placed 04/16-DCd 04/20 Prophylaxis - GI - lansoprazole - DVT - SCD/enoxaparin Critical Care: Level 2 Transfer to Med/Surg. Consult hospitalist to assume care in am Cece Sarabia MD Apr 22, 2017 13:08
--- NOTE | 2017-04-22 16:20 | HHI.PR ---
Subjective Remarks On Nasal cannula Feels much better Tolerates PO Hoarseness improved Objective Vital Signs Vital Signs Date Time Temp Pulse Resp B/P (MAP) Pulse Ox O2 Delivery O2 Flow Rate FiO2 04/22/17 12:00 107 04/22/17 12:00 99.0 112 37 93/50 (64) 93 04/22/17 10:00 109 04/22/17 10:00 109 34 111/55 (73) 93 04/22/17 09:00 103 29 106/54 (71) 91 04/22/17 08:07 95 04/22/17 08:00 99.2 79 30 111/59 (76) 97 04/22/17 08:00 79 04/22/17 07:00 77 31 113/56 (75) 97 04/22/17 06:00 93 31 97/62 (74) 95 04/22/17 06:00 93 04/22/17 05:00 74 27 112/60 (77) 99 04/22/17 04:00 79 04/22/17 04:00 98.9 79 32 110/57 (74) 99 04/22/17 02:00 92 04/22/17 00:00 99.1 84 16 99/54 (69) 98 04/22/17 00:00 84 04/21/17 22:00 91 04/21/17 20:00 99.1 111 29 110/58 (75) 99 04/21/17 20:00 111 04/21/17 19:43 99 Nasal Cannula 2.00 04/21/17 18:00 100 04/21/17 18:00 100 28 102/55 (71) 96 04/21/17 17:00 110 25 97/52 (67) 96 I/O 04/21/17 04/21/17 04/21/17 04/22/17 04/22/17 04/22/17 06:59 14:59 22:59 06:59 14:59 22:59 Intake Total 50 ml 350 ml 240 ml 100 ml Output Total 550 ml 425 ml 250 ml Balance -500 ml -75 ml -10 ml 100 ml Intake Oral 350 ml 240 ml IV Total 50 ml 100 ml Output Urine Total 550 ml 425 ml 250 ml # Voids 2 # Bowel Movements 1 2 1 Result Diagram: 04/22/1770904/22/17709 Objective Remarks GENERAL: Patient is 66 yo intubated and sedated SKIN: Warm and dry. HEAD: Normocephalic. EYES: No scleral icterus. No injection or drainage. NECK: Supple, trachea midline. No JVD or lymphadenopathy. Orally intubated CARDIOVASCULAR: Regular rate and rhythm without murmurs, gallops, or rubs. RESPIRATORY: Breath sounds equal bilaterally. No accessory muscle use. GASTROINTESTINAL: Abdomen soft, non-tender, nondistended. MUSCULOSKELETAL: No cyanosis, or edema. BACK: Nontender without obvious deformity. No CVA tenderness. Neuro: Intubated A/P Assessment and Plan 1)VDRF, s/p extubation / 2)Pneumonia 3)Encephalopathy--improved 4)Sz 5)depression 6)Hypothyroidism PLAN: Supplement .02 Continue with abx (Aztreonam, Vanco, Flagyl) follow up on BC and sputum cx from 04/16: NGTD Strep pneumonia, Legionella urinary Ag and Influenza all negative. Monitor neuro status- On keppra. Neuro is following Diurease Encourage PO DW pt and her daughter Stable to tr to floor Mihai Peng MD Apr 22, 2017 16:20
[2017-04-22] MEDS: ENOXAPARIN SODIUM 40 MG/0.4 ML SYRINGE SQ SCH (16:49)
[2017-04-23] VITALS (10 sets, daily range): BP systolic 99–111; BP diastolic 50–59; PULSE 84–107; RESP 12–35; TEMP 98.6–99; O2SAT 94–99
[2017-04-23] MEDS: LEVOTHYROXINE SODIUM 88 MCG TAB PO SCH (05:36)
[2017-04-23] MEDS: METOCLOPRAMIDE HCL 10 MG/2 ML VIAL IV PUSH SCH ×3 (05:36→19:53)
[2017-04-23] MEDS: metroNIDAZOLE 500 MG TAB PO SCH ×4 (05:36→23:18)
[2017-04-23] MEDS: ARTIFICIAL TEARS OPTH SOLN 15 ML BTL EACH EYE SCH ×3 (05:36→19:55)
[2017-04-23] MEDS: INSULIN NovoLIN REGULAR SUPPLEMENTAL SCALE SQ SCH ×4 (05:40→23:47)
[2017-04-23] MEDS: RESP: ALBUTEROL 2.5 MG/IPRATROPIUM 0.5 MG NEB (SCH) INH ×4 (07:41→19:25)
[2017-04-23] MEDS: RESP: BUDESONIDE 0.5 MG/2 ML NEB NEB SCH ×2 (07:41→19:58)
[2017-04-23] MEDS: CHLORHEXIDINE 0.12% (ORAL KIT) 15 ML CUP MT SCH ×2 (08:00→19:54)
[2017-04-23] MEDS: POTASSIUM CHLORIDE 25 MEQ EFFERVESCENT TAB PO SCH (08:20)
[2017-04-23] MEDS: ATORVASTATIN 40 MG TAB PO SCH (08:21)
[2017-04-23] MEDS: SERTRALINE HCL 50 MG TAB PO SCH (08:21)
[2017-04-23] MEDS: DOCUSATE SODIUM 50 MG/SENNA 8.6 MG TAB PO SCH ×2 (08:21→19:54)
[2017-04-23] MEDS: AZITHROMYCIN 250 MG TAB PO SCH (08:21)
[2017-04-23] MEDS: levETIRAcetam 500 MG/5 ML UDC NG SCH ×2 (08:22→19:53)
[2017-04-23] MEDS: LANSOPRAZOLE SOLUTAB 30 MG TAB NG SCH (08:55)
[2017-04-23] MEDS: LACTOBACILLUS ACIDOPHILUS TAB PO SCH ×2 (08:55→19:53)
[2017-04-23] MEDS: AZTREONAM INJ 2,000 MG in SODIUM CHLORIDE 0.9% INJ 100 ML IV SCH ×2 (09:40→19:53)
[2017-04-23] MEDS: SODIUM CHLORIDE 0.9% FLUSH 10 ML FLUSH IV FLUSH SCH ×3 (09:40→19:54)
--- NOTE | 2017-04-23 10:25 | HHI.CCPN ---
Subjective Remarks/Hospital Course This is a 66-year-old female. Data admission 04/13/2017. Date of consultation 04/16/2017. Past medical history includes dyslipidemia, hypothyroidism and depression.visual illness symptoms onset occurred at the beginning of April. She seen at the [facility] for febrile illness. She received azithromycin, Tessalon Perles and ondansetron. She came to have fevers chills. Upon presentation to the ED on 04/13 patient's studies. Hypoxic and placed on nonrebreather mask. CULTURES were negative. The hospitalist and patient had a "seizure activity". She has intermittent confusion receiving levofloxacin. She has been seen in consultation by neurology. She is currently on levetiracetam from neurology standpoint. Workup including EEG and MRI brain essentially within normal limits. Today, pulmonology evaluated patient to be With rapid shallow breathing. Patient has received lorazepam and haloperidol within the past 24 hours due to "agitation". No seizure activity noted. Upon arrival to the ICU, patient was reread was in the 40s. Elective intubation. Central line placement. 04/18/17: Remains intubated. All sedation except follows commands. Chest x-ray is essentially unchanged. Cultures remain negative. Tomas-Synephrine on hold. Hemodynamically remaining stable 04/19/17: Remains intubated off sedation follows commands. Tolerating CPAP but ABGs shows persistent hypoxia and chest x-ray shows bilateral basilar effusions and consolidation. Plan for bedside US and drainage of effusion if large enough prior to extubation 04/20/17: Patient is intubated but off sedation wide-awake. Chest x-ray shows improving bilateral infiltrates. Urine output 4.5 L in 24 hours. Tachycardic. We will attempt CPAP 8 over 5 with possible extubation 04/21/17: Extubated yesterday tolerating well. Urine output excellent with Lasix. Breathing comfortably. Chest x-ray today is pending 04/22/17: Sitting up in bed breathing comfortably, slightly tachycardic. Urine output remains adequate. Lasix dose was reduced yesterday 04/23/17: Sitting up in chair breathing comfortably. Chest x-ray and CMP is pending at this time.. Liver enzyme elevation was not added yesterday ? ABX induced. Await CMP today Objective Vital Signs Date Time Temp Pulse Resp B/P (MAP) Pulse Ox O2 Delivery O2 Flow Rate FiO2 04/23/17 08:00 84 04/23/17 08:00 98.8 18 109/59 (76) 95 04/22/17 19:52 21 04/21/17 19:43 Nasal Cannula 2.00 Intake and Output 04/23/17 04/23/17 04/24/17 08:00 16:00 00:00 Intake Total 300 ml Output Total 450 ml Balance -150 ml Result Diagram: 04/22/17 0710 04/22/17 0710 Imaging Last Impressions Chest X-Ray 04/16/17 0000 Signed Impressions: Service Date/Time: Sunday, April 16, 2017 15:59 - CONCLUSION: 1. Worsening bibasilar consolidation. 2. Endotracheal tube tip is 1.5 cm above the hero. 3. Right IJ central venous catheter has its tip at the atriocaval junction. No pneumothorax. Cornell Anna MD Chest CT 04/16/17 0000 Signed Impressions: Service Date/Time: Sunday, April 16, 2017 21:02 - CONCLUSION: Small effusions and basilar predominant pneumonia on both sides. Endotracheal tube tip is less than a centimeter above the hero. Cornell Anna MD Head CT 04/15/17 0000 Signed Impressions: Service Date/Time: Saturday, April 15, 2017 12:01 - CONCLUSION: No acute intracranial process Cornell Tierney MD Brain MRI 04/15/17 0000 Signed Impressions: Service Date/Time: Saturday, April 15, 2017 18:01 - CONCLUSION: No acute intracranial findings. Bilateral ethmoid and maxillary sinus disease. Air- fluid level in the right maxillary sinus suggests acute sinusitis. Bernardo Cook MD Lung Scan- Nuclear Medicine 04/13/17 1630 Signed Impressions: Service Date/Time: Thursday, April 13, 2017 17:36 - CONCLUSION: Some air trapping in the right lung base. No significant perfusion defects are noted. No significant evidence of pulmonary embolism. Akash Long MD Objective Remarks GENERAL: 66-year-old female on NC, sitting up in chair SKIN: Warm and dry. HEAD: Atraumatic. Normocephalic. EYES: Pupils equal and round about 4 millimeters bilaterally ENT: No nasal bleeding or discharge. Mucous membranes pink and moist. NECK: Trachea midline. No JVD. CARDIOVASCULAR: RR. S1, S2 no S4. Without murmur RESPIRATORY: Few Coarse crackles appreciated bilateral lower lobes. Posteriorly air entry decreased in the right lower lobe GASTROINTESTINAL: Abdomen soft, non-tender, nondistended. MUSCULOSKELETAL: Extremities without significant peripheral edema. No obvious deformities. NEUROLOGICAL: Alert awake oriented 3. Nonfocal deficits Procedures none Date of Insertion: Apr 16, 2017 Line: Central Venous Catheter Side: Right Location: Internal, Jugular A/P Assessment and Plan Neuro/Psych: Acute toxic metabolic encephalopathy-resolved Seizure? Depression NOS MRI brain revealed bilateral ethmoid and maxillary sinusitis with acute component of right maxillary sinusitis CT brain revealed no acute intracranial findings EEG revealed no epileptiform activity. Evaluated by Dr. Lew/neurology. Currently on levetiracetam 500 mg ng twice a day DC Keppra if ok with Dr. Lew Currently on sertraline 50 mg daily CV: Hypotension-resolved Sinus tachycardia Severe sepsis Lasix to po 20 mg q12 stop today 2-D echocardiogram revealed normal LV systolic function. Bilateral atrial enlargement. PAP 41 mmHg. Not requiring antihypertensives and/or vasopressors at the present time Currently on pravastatin 40 mg by mouth daily/hospital substitution for medication rosuvastatin 20 mg by mouth daily-hold due to ALT/AST elevation Resp: Acute hypoxic hypercapnic respiratory failure-resolved History of prior tobaccoism Community-acquired pneumonia Extubated 04/20, tolerating well Albuterol/ipratropium aerosols every 6 hours with albuterol aerosols every 2 hours PRN EzPAP, IS Chest x-ray improving bilateral infiltrate, repeat today CT thorax without contrast 04/16 revealed bilateral lower lobe infiltrates. VQ scan low probability GI: Transaminitis Hypoalbuminemia Monitor CMP. Liver enzymes elevation may be antibiotic/Keppra/Statin related. Hold statins Lansoprazole 30 mg daily for GI prophylaxis Docusate sodium/senna 1 tablet twice a day for bowel regimen Metoclopramide 5 mg 3 times a day for bowel motility : DCd Carlos Lasix as above-stop today Endo: Hypothyroidism SSI with Novulin R with Accu-Cheks every 6 hours Continue levothyroxine 88 g daily. TSH 1.17 on admission Renal: Creatinine currently within normal limits Monitor urine output Accurate I's and O's Lasix as above Heme: Elevated PTT Leukocytosis Normocytic anemia Monitor CBC daily. Follow trends ID: Community-acquired pneumonia Right maxillary sinusitis Currently on Azithromycin, aztreonam and metronidazole (Oral Azithromycin started by ID ) 04/13 blood cultures 2, urine Legionella pneumococcal antigen and influenza and urine cultures all no growth Sputum culture -follow up MSK: PT evaluate and treat, OOB FEN: Hypokalemia Replace electrolytes per ICU electrolyte protocol. Access - Left IJ CVL day 5 placed 04/16-DCd 04/20 Prophylaxis - GI - lansoprazole - DVT - SCD/enoxaparin Critical Care: Level 2 Transfer to Med/Surg. Consulted hospitalist to assume care once out of ICU Cece Sarabia MD Apr 23, 2017 10:25
--- NOTE | 2017-04-23 11:00 | RADRPT ---
EXAM DATE/TIME: 04/23/2017 10:29 [facility] COMPARISON: CHEST SINGLE AP, April 21, 2017, 8:16. INDICATIONS : Shortness of breath. MEDICAL HISTORY : Hypothyroidism. Hypercholesterolemia. SURGICAL HISTORY : Hysterectomy. ENCOUNTER: Subsequent ACUITY: 1 week PAIN SCORE: 0/10 LOCATION: Bilateral chest FINDINGS: Tiny bilateral pleural effusions are seen. There is overall improvement in the aeration of the lungs with residual bilateral atelectasis and/or infiltrate remaining. CONCLUSION: Improvement in the aeration of the lungs. Garcia Ortiz MD on April 23, 2017 at 10:58 Board Certified Radiologist. This report was verified electronically.
[2017-04-23 12:55] LABS: ALKALINE PHOSPHATASE 66 U/L (45-117); ALT (GPT) 59 U/L (10-53); AST (GOT) 39 U/L (15-37); BICARBONATE 29.1 MEQ/L (21.0-32.0); BLOOD UREA NITROGEN 15 MG/DL (7-18); CALCIUM 9.3 MG/DL (8.5-10.1); CHLORIDE 104 MEQ/L (98-107); CREATININE 0.32 MG/DL (0.50-1.00); GLOMERULAR FILTRATION RATE 207 ML/MIN (>89); GLUCOSE,RANDOM 116 MG/DL (74-106); SODIUM (NA) 140 MEQ/L (136-145); TOTAL BILIRUBIN ADULT 0.2 MG/DL (0.2-1.0); TOTAL PROTEIN 6.9 GM/DL (6.4-8.2)
--- NOTE | 2017-04-23 13:39 | HHI.PR ---
Subjective Remarks On Nasal cannula Feels much better Tolerates PO Hoarseness improved Weaned to RA Objective Vital Signs Vital Signs Date Time Temp Pulse Resp B/P (MAP) Pulse Ox O2 Delivery O2 Flow Rate FiO2 04/23/17 08:00 84 04/23/17 08:00 98.8 94 18 109/59 (76) 95 04/23/17 07:42 94 04/23/17 04:00 84 04/23/17 04:00 98.8 84 12 100/50 (67) 95 04/23/17 00:00 84 04/23/17 00:00 99.0 84 35 106/57 (73) 96 04/22/17 20:00 100 04/22/17 20:00 99.3 100 25 108/56 (73) 100 04/22/17 19:52 100 21 04/22/17 18:00 100 28 98/61 (73) 95 04/22/17 17:00 102 34 103/55 (71) 98 04/22/17 16:00 101 04/22/17 16:00 98.5 101 33 104/51 (68) 94 04/22/17 15:00 100 37 105/59 (74) 94 04/22/17 14:00 104 32 97/54 (68) 94 I/O 04/22/17 04/22/17 04/22/17 04/23/17 04/23/17 04/23/17 06:59 14:59 22:59 06:59 14:59 22:59 Intake Total 240 ml 100 ml 450 ml 300 ml Output Total 250 ml 250 ml 450 ml Balance -10 ml 100 ml 200 ml -150 ml Intake Oral 240 ml 350 ml 300 ml IV Total 100 ml 100 ml Output Urine Total 250 ml 250 ml 450 ml # Voids 2 2 2 # Bowel Movements 1 1 1 Result Diagram: 04/22/17 0710 04/23/17 1143 Objective Remarks GENERAL: Patient is 66 yo intubated and sedated SKIN: Warm and dry. HEAD: Normocephalic. EYES: No scleral icterus. No injection or drainage. NECK: Supple, trachea midline. No JVD or lymphadenopathy. Orally intubated CARDIOVASCULAR: Regular rate and rhythm without murmurs, gallops, or rubs. RESPIRATORY: Breath sounds equal bilaterally. No accessory muscle use. GASTROINTESTINAL: Abdomen soft, non-tender, nondistended. MUSCULOSKELETAL: No cyanosis, or edema. BACK: Nontender without obvious deformity. No CVA tenderness. Neuro: Intubated A/P Assessment and Plan 1)VDRF, s/p extubation / 2)Pneumonia 3)Encephalopathy--improved 4)Sz 5)depression 6)Hypothyroidism PLAN: Supplement .02 Cont Abx Monitor neuro status- On keppra. Neuro is following Diurease Encourage PO Stable to tr to floor Mihai Peng MD Apr 23, 2017 13:39
[2017-04-23] MEDS: ENOXAPARIN SODIUM 40 MG/0.4 ML SYRINGE SQ SCH (17:54)
[2017-04-24] VITALS (8 sets, daily range): BP systolic 100–117; BP diastolic 55–59; PULSE 76–104; RESP 26–37; TEMP 97.8–99.1; O2SAT 94–100
[2017-04-24] MEDS: metroNIDAZOLE 500 MG TAB PO SCH (05:18)
[2017-04-24] MEDS: ARTIFICIAL TEARS OPTH SOLN 15 ML BTL EACH EYE SCH (05:18)
[2017-04-24] MEDS: LEVOTHYROXINE SODIUM 88 MCG TAB PO SCH (05:18)
[2017-04-24] MEDS: METOCLOPRAMIDE HCL 10 MG/2 ML VIAL IV PUSH SCH (05:18)
[2017-04-24] MEDS: INSULIN NovoLIN REGULAR SUPPLEMENTAL SCALE SQ SCH (06:00)
[2017-04-24 06:24] LABS: AUTOMATED NEUTROPHIL # 4.5 TH/MM3 (1.8-7.7); BASOPHIL % 0.8 % (0.0-2.0); EOSINOPHIL # 0.1 TH/MM3 (0-0.4); EOSINOPHIL % 0.9 % (0.0-4.0); HEMATOCRIT 27.1 % (35.0-46.0); HEMOGLOBIN 9.3 GM/DL (11.6-15.3); LYMPH % 15.9 % (9.0-44.0); MEAN CELL VOLUME 97.6 FL (80.0-100.0); MEAN CORPUSCULAR HEMOGLOBIN 33.3 PG (27.0-34.0); MEAN CORPUSCULAR HGB CONC 34.2 % (32.0-36.0); MEAN PLATELET VOLUME 6.9 FL (7.0-11.0); MONO % 7.5 % (0.0-8.0); MONOCYTE # 0.5 TH/MM3 (0-0.9); NEUT % 74.9 % (16.0-70.0); PLATELET COUNT 566 TH/MM3 (150-450); RED BLOOD COUNT 2.78 MIL/MM3 (4.00-5.30); RED CELL DISTRIBUTION WIDTH 13.6 % (11.6-17.2)
[2017-04-24 06:36] LABS: ALBUMIN 2.9 GM/DL (3.4-5.0); ALT (GPT) 52 U/L (10-53); AST (GOT) 29 U/L (15-37); BICARBONATE 26.5 MEQ/L (21.0-32.0); BLOOD UREA NITROGEN 16 MG/DL (7-18); CALCIUM 8.6 MG/DL (8.5-10.1); CHLORIDE 106 MEQ/L (98-107); CREATININE 0.34 MG/DL (0.50-1.00); GLOMERULAR FILTRATION RATE 193 ML/MIN (>89); GLUCOSE,RANDOM 100 MG/DL (74-106); SODIUM (NA) 139 MEQ/L (136-145)
[2017-04-24 06:38] LABS: ALKALINE PHOSPHATASE 59 U/L (45-117); TOTAL BILIRUBIN ADULT 0.2 MG/DL (0.2-1.0); TOTAL PROTEIN 6.3 GM/DL (6.4-8.2)
[2017-04-24] MEDS: RESP: ALBUTEROL 2.5 MG/IPRATROPIUM 0.5 MG NEB (SCH) INH ×2 (07:44→11:32)
[2017-04-24] MEDS: CHLORHEXIDINE 0.12% (ORAL KIT) 15 ML CUP MT SCH (08:00)
[2017-04-24] MEDS: ATORVASTATIN 40 MG TAB PO SCH (08:40)
[2017-04-24] MEDS: AZITHROMYCIN 250 MG TAB PO SCH (08:40)
[2017-04-24] MEDS: levETIRAcetam 500 MG/5 ML UDC NG SCH (08:40)
[2017-04-24] MEDS: SODIUM CHLORIDE 0.9% FLUSH 10 ML FLUSH IV FLUSH SCH ×2 (08:41)
[2017-04-24] MEDS: LANSOPRAZOLE SOLUTAB 30 MG TAB NG SCH (08:41)
[2017-04-24] MEDS: DOCUSATE SODIUM 50 MG/SENNA 8.6 MG TAB PO SCH (08:41)
[2017-04-24] MEDS: SERTRALINE HCL 50 MG TAB PO SCH (08:41)
[2017-04-24] MEDS: POTASSIUM CHLORIDE 25 MEQ EFFERVESCENT TAB PO SCH (08:41)
[2017-04-24] MEDS: LACTOBACILLUS ACIDOPHILUS TAB PO SCH (08:41)
[2017-04-24] MEDS: AZTREONAM INJ 2,000 MG in SODIUM CHLORIDE 0.9% INJ 100 ML IV SCH (09:49)
--- NOTE | 2017-04-24 11:15 | HHI.CCPN ---
Subjective Remarks/Hospital Course This is a 66-year-old female. Data admission 04/13/2017. Date of consultation 04/16/2017. Past medical history includes dyslipidemia, hypothyroidism and depression.visual illness symptoms onset occurred at the beginning of April. She seen at the [facility] for febrile illness. She received azithromycin, Tessalon Perles and ondansetron. She came to have fevers chills. Upon presentation to the ED on 04/13 patient's studies. Hypoxic and placed on nonrebreather mask. CULTURES were negative. The hospitalist and patient had a "seizure activity". She has intermittent confusion receiving levofloxacin. She has been seen in consultation by neurology. She is currently on levetiracetam from neurology standpoint. Workup including EEG and MRI brain essentially within normal limits. Today, pulmonology evaluated patient to be With rapid shallow breathing. Patient has received lorazepam and haloperidol within the past 24 hours due to "agitation". No seizure activity noted. Upon arrival to the ICU, patient was reread was in the 40s. Elective intubation. Central line placement. 04/18/17: Remains intubated. All sedation except follows commands. Chest x-ray is essentially unchanged. Cultures remain negative. Tomas-Synephrine on hold. Hemodynamically remaining stable 04/19/17: Remains intubated off sedation follows commands. Tolerating CPAP but ABGs shows persistent hypoxia and chest x-ray shows bilateral basilar effusions and consolidation. Plan for bedside US and drainage of effusion if large enough prior to extubation 04/20/17: Patient is intubated but off sedation wide-awake. Chest x-ray shows improving bilateral infiltrates. Urine output 4.5 L in 24 hours. Tachycardic. We will attempt CPAP 8 over 5 with possible extubation 04/21/17: Extubated yesterday tolerating well. Urine output excellent with Lasix. Breathing comfortably. Chest x-ray today is pending 04/22/17: Sitting up in bed breathing comfortably, slightly tachycardic. Urine output remains adequate. Lasix dose was reduced yesterday 04/23/17: Sitting up in chair breathing comfortably. Chest x-ray and CMP is pending at this time.. Liver enzyme elevation was not added yesterday ? ABX induced. Await CMP today 04/24/17: Breathing comfortably sitting up in chair. Liver enzymes have normalized. Chest x-ray from yesterday showed significant improvement Objective Vital Signs Date Time Temp Pulse Resp B/P (MAP) Pulse Ox O2 Delivery O2 Flow Rate FiO2 04/24/17 10:00 95 32 106/56 (73) 96 04/24/17 08:00 97.8 04/23/17 19:27 21 04/21/17 19:43 Nasal Cannula 2.00 Intake and Output 04/24/17 04/24/17 04/25/17 08:00 16:00 00:00 Intake Total 250 ml Balance 250 ml Result Diagram: 04/24/17 0505 04/24/17 0505 Imaging Last Impressions Chest X-Ray 04/16/17 0000 Signed Impressions: Service Date/Time: Sunday, April 16, 2017 15:59 - CONCLUSION: 1. Worsening bibasilar consolidation. 2. Endotracheal tube tip is 1.5 cm above the hero. 3. Right IJ central venous catheter has its tip at the atriocaval junction. No pneumothorax. Cornell Anna MD Chest CT 04/16/17 0000 Signed Impressions: Service Date/Time: Sunday, April 16, 2017 21:02 - CONCLUSION: Small effusions and basilar predominant pneumonia on both sides. Endotracheal tube tip is less than a centimeter above the hero. Cornell Anna MD Head CT 04/15/17 0000 Signed Impressions: Service Date/Time: Saturday, April 15, 2017 12:01 - CONCLUSION: No acute intracranial process Cornell Tierney MD Brain MRI 04/15/17 0000 Signed Impressions: Service Date/Time: Saturday, April 15, 2017 18:01 - CONCLUSION: No acute intracranial findings. Bilateral ethmoid and maxillary sinus disease. Air- fluid level in the right maxillary sinus suggests acute sinusitis. Bernardo Cook MD Lung Scan- Nuclear Medicine 04/13/17 1630 Signed Impressions: Service Date/Time: Thursday, April 13, 2017 17:36 - CONCLUSION: Some air trapping in the right lung base. No significant perfusion defects are noted. No significant evidence of pulmonary embolism. Akash Long MD Objective Remarks GENERAL: 66-year-old female on NC, sitting up in chair SKIN: Warm and dry. HEAD: Atraumatic. Normocephalic. EYES: Pupils equal and round about 4 millimeters bilaterally ENT: No nasal bleeding or discharge. Mucous membranes pink and moist. NECK: Trachea midline. No JVD. CARDIOVASCULAR: RR. S1, S2 no S4. Without murmur RESPIRATORY: Posteriorly air entry decreased in the right lower lobe. Minimal basilar crackles GASTROINTESTINAL: Abdomen soft, non-tender, nondistended. MUSCULOSKELETAL: Extremities without significant peripheral edema. No obvious deformities. NEUROLOGICAL: Alert awake oriented 3. Nonfocal deficits Procedures none Date of Insertion: Apr 16, 2017 Line: Central Venous Catheter Side: Right Location: Internal, Jugular A/P Assessment and Plan Neuro/Psych: Acute toxic metabolic encephalopathy-resolved Seizure? Depression NOS MRI brain revealed bilateral ethmoid and maxillary sinusitis with acute component of right maxillary sinusitis CT brain revealed no acute intracranial findings EEG revealed no epileptiform activity. Evaluated by Dr. Lew/neurology. Currently on levetiracetam 500 mg ng twice a day F/u with neurology as OP and continue Keppra until then Currently on sertraline 50 mg daily CV: Hypotension-resolved Sinus tachycardia Severe sepsis Lasix to po 20 mg q12 stopped 04/24/17 2-D echocardiogram revealed normal LV systolic function. Bilateral atrial enlargement. PAP 41 mmHg. Not requiring antihypertensives and/or vasopressors at the present time Currently on pravastatin 40 mg by mouth daily/hospital substitution for medication rosuvastatin 20 mg by mouth daily-held due to ALT/AST elevation Resp: Acute hypoxic hypercapnic respiratory failure-resolved History of prior tobaccoism Community-acquired pneumonia Extubated 04/20, tolerating well Albuterol/ipratropium aerosols every 6 hours with albuterol aerosols every 2 hours PRN EzPAP, IS. Chest x-ray improving bilateral infiltrate CT thorax without contrast 04/16 revealed bilateral lower lobe infiltrates. VQ scan low probability GI: Transaminitis Hypoalbuminemia Monitor CMP. Liver enzymes elevation improving Lansoprazole 30 mg daily for GI prophylaxis Docusate sodium/senna 1 tablet twice a day for bowel regimen Metoclopramide 5 mg 3 times a day for bowel motility-Will DC : DCd Carlos Lasix stopped yesterday Endo: Hypothyroidism SSI with Novulin R with Accu-Cheks every 6 hours Continue levothyroxine 88 g daily. TSH 1.17 on admission Renal: Creatinine currently within normal limits Monitor urine output Accurate I's and O's Lasix as above Heme: Elevated PTT Leukocytosis Normocytic anemia Monitor CBC daily. Follow trends ID: Community-acquired pneumonia Right maxillary sinusitis Currently on Azithromycin, aztreonam and metronidazole. On DC complete Z thuy (Oral Azithromycin started by ID ) 04/13 blood cultures 2, urine Legionella pneumococcal antigen and influenza and urine cultures all no growth Sputum culture -follow up MSK: PT evaluate and treat, OOB FEN: Hypokalemia Replace electrolytes per ICU electrolyte protocol. Access - Left IJ CVL day 5 placed 04/16-DCd 04/20 Prophylaxis - GI - lansoprazole - DVT - SCD/enoxaparin Critical Care: Level 2 DC home today Cece Sarabia MD Apr 24, 2017 11:15
--- NOTE | 2017-04-24 11:18 | HHI.DS ---
Discharge Summary Admission Date Apr 13, 2017 at 18:45 Admitting Diagnosis SEVERE HYPOXEMIA, BILATERAL LUNG INFILTRATES (1) Severe hypoxemia ICD Code: R09.02 - Hypoxemia Diagnosis: Principal Status: Acute (2) Acute hypoxemic respiratory failure ICD Code: J96.01 - Acute respiratory failure with hypoxia Diagnosis: Principal (3) Community acquired pneumonia ICD Code: J18.9 - Pneumonia, unspecified organism Diagnosis: Principal (4) possible seizure Diagnosis: Principal (5) Toxic metabolic encephalopathy ICD Code: G92 - Toxic encephalopathy Diagnosis: Principal (6) Transaminitis ICD Code: R74.0 - Nonspecific elevation of levels of transaminase and lactic acid dehydrogenase [LDH] Diagnosis: Principal (7) Acute kidney injury ICD Code: N17.9 - Acute kidney failure, unspecified Diagnosis: Principal Procedures none Brief History History from patient, ER communication, and review of medical records tuesday afternoon had fever 103 came to PO ER was told infection, prescribed z pack not improved was also coughing , was given codeine and cough med took tylenol nex few days continued fever 102- 103 at home ; chills too was wheezing at home then finally came to ER again here O2 sat was 64% on RA by EMS also severely hypoxic in ER denies hx of chf stopped smoking at age 41yrs ago- smoked from 17yo to 26 yo quit smoking about 30yrs ago, but he did not smoke heavily indoor then has been sleeping on recliner no peripheral edema no weight gain nauseous, but did not vomit no diarrhea no urinary symptoms no blood in stool or urine no other symptoms no recent travels out of country no prolonged travels CBC/BMP: 04/24/17 0505 04/24/17 0505 Significant Findings Laboratory Tests Test 04/22/17 07:10 04/23/17 11:43 04/24/17 05:05 Red Blood Count 3.09 MIL/MM3 (4.00-5.30) 2.78 MIL/MM3 (4.00-5.30) Hemoglobin 10.2 GM/DL (11.6-15.3) 9.3 GM/DL (11.6-15.3) Hematocrit 30.4 % (35.0-46.0) 27.1 % (35.0-46.0) Platelet Count 492 TH/MM3 (150-450) 566 TH/MM3 (150-450) Mean Platelet Volume 6.8 FL (7.0-11.0) 6.9 FL (7.0-11.0) Neutrophils (%) (Auto) 81.3 % (16.0-70.0) 74.9 % (16.0-70.0) Lymphocytes # (Auto) 0.9 TH/MM3 (1.0-4.8) Creatinine 0.36 MG/DL (0.50-1.00) 0.32 MG/DL (0.50-1.00) 0.34 MG/DL (0.50-1.00) Random Glucose 110 MG/DL (74-106) 116 MG/DL (74-106) Albumin 3.0 GM/DL (3.4-5.0) 3.0 GM/DL (3.4-5.0) 2.9 GM/DL (3.4-5.0) Aspartate Amino Transf (AST/SGOT) 92 U/L (15-37) 39 U/L (15-37) Alanine Aminotransferase (ALT/SGPT) 76 U/L (10-53) 59 U/L (10-53) Total Protein 6.3 GM/DL (6.4-8.2) Imaging Chest x-ray and CT of the chest shows bilateral infiltrates consistent with pneumonia PE at Discharge GENERAL: This is a thin lady in no apparent distress. SKIN: No rashes, ecchymoses or lesions. Cool and dry. NECK: Trachea midline. No JVD CARDIOVASCULAR: Regular rate and rhythm without murmurs, gallops, or rubs. RESPIRATORY: Bilaterally decreased air entry. GASTROINTESTINAL: Abdomen soft, non-tender, nondistended. No guarding. MUSCULOSKELETAL: Extremities without clubbing, cyanosis, or edema. No calf tenderness. NEUROLOGICAL: Awake and alert. Motor and sensory grossly within normal limits. Normal speech. Transfer Summary see hospital course Hospital Course This is a 66-year-old female. Data admission 04/13/2017. Date of consultation 04/16/2017. Past medical history includes dyslipidemia, hypothyroidism and depression.visual illness symptoms onset occurred at the beginning of April. She seen at the [facility] for febrile illness. She received azithromycin, Tessalon Perles and ondansetron. She came to have fevers chills. Upon presentation to the ED on 04/13 patient's studies. Hypoxic and placed on nonrebreather mask. CULTURES were negative. The hospitalist and patient had a "seizure activity". She has intermittent confusion receiving levofloxacin. She has been seen in consultation by neurology. She is currently on levetiracetam from neurology standpoint. Workup including EEG and MRI brain essentially within normal limits. Today, pulmonology evaluated patient to be With rapid shallow breathing. Patient has received lorazepam and haloperidol within the past 24 hours due to "agitation". No seizure activity noted. Upon arrival to the ICU, patient was reread was in the 40s. Elective intubation. Central line placement. 04/18/17: Remains intubated. All sedation except follows commands. Chest x-ray is essentially unchanged. Cultures remain negative. Tomas-Synephrine on hold. Hemodynamically remaining stable 04/19/17: Remains intubated off sedation follows commands. Tolerating CPAP but ABGs shows persistent hypoxia and chest x-ray shows bilateral basilar effusions and consolidation. Plan for bedside US and drainage of effusion if large enough prior to extubation 04/20/17: Patient is intubated but off sedation wide-awake. Chest x-ray shows improving bilateral infiltrates. Urine output 4.5 L in 24 hours. Tachycardic. We will attempt CPAP 8 over 5 with possible extubation 04/21/17: Extubated yesterday tolerating well. Urine output excellent with Lasix. Breathing comfortably. Chest x-ray today is pending 04/22/17: Sitting up in bed breathing comfortably, slightly tachycardic. Urine output remains adequate. Lasix dose was reduced yesterday 04/23/17: Sitting up in chair breathing comfortably. Chest x-ray and CMP is pending at this time.. Liver enzyme elevation was not added yesterday ? ABX induced. Await CMP today 04/24/17: Breathing comfortably sitting up in chair. Liver enzymes have normalized. Chest x-ray from yesterday showed significant improvement Pt Condition on Discharge: Stable Discharge Disposition: Discharge Home Discharge Instructions DIET: Follow Instructions for: Heart Healthy Diet Activities you can perform: See Additionl Instruction Other Activity Instructions: Per PT recommendation New Medications: Oxygen (O2) (Oxygen (O2)) Device LITER RUFINO.CANULA CONTINUOUS for Prevent Hypoxemia, #2 Oxygen Concentrator Portable Gaseous 2 L/min via Nasal Canula Continuous For 99 months Walker with Front Wheels (Walker with Front Wheels) 1 Mis Mis EA .ROUTE DIRECTED, #1 0 Refills Additional Information Continue previous home medications Complete Zpak (prescription written) Keppra 500 mg BID until you see neurologist Dr. Lew (prescription written) Cece Sarabia MD Apr 24, 2017 11:18
--- NOTE | 2017-04-24 12:29 | HHI.PR ---
Subjective Remarks On Nasal cannula Feels much better Tolerates PO Hoarseness improved Weaned to RA Ambulates, sat 100% Objective Vital Signs Vital Signs Date Time Temp Pulse Resp B/P (MAP) Pulse Ox O2 Delivery O2 Flow Rate FiO2 04/24/17 10:00 95 32 106/56 (73) 96 04/24/17 09:00 91 31 105/57 (73) 94 04/24/17 08:00 97.8 82 29 101/57 (72) 95 04/24/17 08:00 82 04/24/17 07:45 97 04/24/17 04:00 98.5 76 37 107/57 (74) 95 04/24/17 04:00 76 04/24/17 00:00 82 04/24/17 00:00 99.1 82 33 100/55 (70) 95 04/23/17 20:00 98.9 107 28 111/56 (74) 94 04/23/17 20:00 107 04/23/17 19:27 98 21 04/23/17 17:34 84 04/23/17 16:00 98.8 93 20 99/52 (68) 99 04/23/17 14:00 84 I/O 04/23/17 04/23/17 04/23/17 04/24/17 04/24/17 04/24/17 07:00 15:00 23:00 07:00 15:00 23:00 Intake Total 300 ml 680 ml 250 ml Output Total 450 ml 650 ml Balance -150 ml 30 ml 250 ml Intake Oral 300 ml 480 ml 250 ml IV Total 200 ml Output Urine Total 450 ml 650 ml # Voids 2 2 3 # Bowel Movements 1 1 Result Diagram: 04/24/17 0505 04/24/17 0505 Objective Remarks GENERAL: Patient is 66 yo intubated and sedated SKIN: Warm and dry. HEAD: Normocephalic. EYES: No scleral icterus. No injection or drainage. NECK: Supple, trachea midline. No JVD or lymphadenopathy. Orally intubated CARDIOVASCULAR: Regular rate and rhythm without murmurs, gallops, or rubs. RESPIRATORY: Breath sounds equal bilaterally. No accessory muscle use. GASTROINTESTINAL: Abdomen soft, non-tender, nondistended. MUSCULOSKELETAL: No cyanosis, or edema. BACK: Nontender without obvious deformity. No CVA tenderness. Neuro: Intubated A/P Assessment and Plan 1)VDRF, s/p extubation / 2)Pneumonia 3)Encephalopathy--improved 4)Sz 5)depression 6)Hypothyroidism PLAN: Cont Abx Encourage PO DC Plans for home Will FU in office KELSEY pt and her daughter GinetteMihai Laboy MD Apr 24, 2017 12:29
== END 2017-04-24 12:40 | disposition home health service (06) | DRG 871 ==
LOC: NEPE 15:58 → NEDA 18:45 → HIMN 21:35 → N06A 04-14 22:34 → HIMW 04-16 14:52
PROVIDERS: ADMIT Internal Medicine Critical Care Medicine; ATTEND Internal Medicine Critical Care Medicine
PROC: 5A1945Z Respiratory Ventilation, 24-96 Consecutive Hours (ICD-10-PCS; principal; 2017-04-16)
PROC: 0DH67UZ Insertion of Feeding Device into Stomach, Via Natural or Artificial Opening (ICD-10-PCS; 2017-04-16)
PROC: 0BH17EZ Insertion of Endotracheal Airway into Trachea, Via Natural or Artificial Opening (ICD-10-PCS; 2017-04-16)
PROC: 05HN33Z Insertion of Infusion Device into Left Internal Jugular Vein, Percutaneous Approach (ICD-10-PCS; 2017-04-16)
PROC: 0T9B70Z Drainage of Bladder with Drainage Device, Via Natural or Artificial Opening (ICD-10-PCS; 2017-04-17)
DX: A41.9 Sepsis, unspecified organism (principal); J96.02 Acute respiratory failure with hypercapnia; J69.0 Pneumonitis due to inhalation of food and vomit; G92 Toxic encephalopathy; N17.9 Acute kidney failure, unspecified; J96.01 Acute respiratory failure with hypoxia; J18.9 Pneumonia, unspecified organism; I95.9 Hypotension, unspecified; D61.818 Other pancytopenia; J44.1 Chronic obstructive pulmonary disease with (acute) exacerbation; E87.1 Hypo-osmolality and hyponatremia; R56.9 Unspecified convulsions; R65.20 Severe sepsis without septic shock; E03.9 Hypothyroidism, unspecified; F32.9 Major depressive disorder, single episode, unspecified; E78.5 Hyperlipidemia, unspecified; R32 Unspecified urinary incontinence; F41.9 Anxiety disorder, unspecified; I10 Essential (primary) hypertension; R47.02 Dysphasia; E88.09 Other disorders of plasma-protein metabolism, not elsewhere classified; E87.6 Hypokalemia; J32.0 Chronic maxillary sinusitis; J32.2 Chronic ethmoidal sinusitis; D64.9 Anemia, unspecified; R79.1 Abnormal coagulation profile; R00.0 Tachycardia, unspecified; Z82.3 Family history of stroke; Z83.3 Family history of diabetes mellitus; Z87.891 Personal history of nicotine dependence; Z83.79 Family history of other diseases of the digestive system; Z90.710 Acquired absence of both cervix and uterus; W19.XXXA Unspecified fall, initial encounter; R05 Cough; R11.0 Nausea; R50.9 Fever, unspecified
CPT/HCPCS: 31500; 36556; 36600; 70450; 70551; 71045; 71250; 76937; 78582; 80048; 80053; 80076; 81001; 82140; 82550; 82805; 82948; 83605; 83690; 83735; 83880; 84100; 84132; 84443; 84484; 85007; 85025; 85027; 85610; 85730; 87040; 87070; 87086; 87205; 87449; 87641; 87804; 93005; 93306; 94002; 94003; 94150; 94640; 94664; 94667; 94668; 95819; 96361; 96365; 96374; A9540; A9567; J1630; J1644; J1650; J1940; J1953; J1956; J2060; J2370; J2405; J2550; J2765; J2920; J3010; J3370; J3480; J7030; J7040; J7042; J7050; J7060; J7626; J7644; P9045; P9047

== ENCOUNTER → 2017-05-17 | Outpatient (CLI) | payer BC ==
[~2017-05-17] MED LIST changes: -CEPH-460 PO; +OXYGENDME NAS.CANULA; +WALKER WHEELS/F1 MIS
== END ==
LOC: PHRSP 08:21
PROVIDERS: ATTEND Specialist
DX: J44.9 Chronic obstructive pulmonary disease, unspecified (principal)
CPT/HCPCS: 94060; 94726; 94729